=== PATIENT | female | born 1975 | race Caucasian/White ===

== ENCOUNTER 2019-12-26 11:23 | Outpatient (CLI) | payer OTHER, MEDICAID, SELFPAY ==
--- NOTE | 2019-12-29 12:02 | WPDHOLTEREM ---
Holter/Event Monitor Holter/Event Monitor Date of procedure: 12/26/19 Procedure Type: 48 hour holter monitr Indications: Paplitations Conclusion: 1. 48 hour holter monitor on 12/26/19. 2. Underlying rhythm is sinus rhythm. HR range 55-141 bpm; average HR 94 bpm. 3. There are 2 premature supraventricular complexes. No supraventricular tachycardia. 4. There are 3 premature ventricular complexes. No ventricular tachycardia. 5. No sinioatrial or atrioventricular blocks. No significant pauses greater than 2 seconds. 6. Patient reports symptoms of chest heaviness, tightness and hurting, shortness of breath which demonstrate sinus rhythm, HR range 106-126 bpm.
== END 2019-12-26 11:24 | disposition home or self-care (01) ==
PROVIDERS: PCP Emergency Medicine; Visit Provider Internal Medicine Cardiovascular Disease
DX: R00.2 Palpitations (principal)
CPT/HCPCS: 93225; 93226

== ENCOUNTER 2020-04-16 19:28 | Emergency (ER) | payer OTHER, MEDICAID, SELFPAY ==
--- NOTE | ~2020-04-16 | XR_ITS ---
XR chest 2V DATE: 04/16/2020 20:30 INDICATION: Upper chest tightness TECHNIQUE: PA and lateral views COMPARISON: 11/22/2015 2 view chest FINDINGS: Normal heart size. No hilar or mediastinal enlargement. No pulmonary infiltrate or consolid ation, pleural effusion or pulmonary vascular congestion or pneumothorax. No hilar or mediastinal enl argement. IMPRESSION: No active cardiopulmonary disease Reviewed, dictated and finalized at location A. ATRIC PHYSICAL THERAPIST
[2020-04-16 19:35] VITALS: BP 151/88; PULSE 100; RESP 16; TEMP 37.1; O2SAT 99
--- NOTE | 2020-04-16 19:48 | ED.CHESTPAIN ---
HPI - Chest Pain General Chief Complaint: Chest Pain Stated Complaint: chest pain,pain under collarbone Time Seen by Provider: 04/16/20 19:49 Source: patient and RN notes reviewed Mode of arrival: ambulatory Limitations: no limitations History of Present Illness HPI narrative: patient states that she woke up with her left arm swollen and painful 4 days ago. She did not come in because she had company in town. She has a long history of autoimmune disease, DVT previously. She had COVID 5-6 weeks ago. She is now having some chest pain / soreness on her left chest. It does not radiate to her left arm but the swelling in her left arm started 1st. She said the swelling went down and approximately 24 hours but still feels sore. She called her doctor last week and was authorized to get a ultrasound of her left upper extremity but did not get it scheduled and did not get that done today. She was advised to come to the emergency room has a for chest pain. Her initial complaint of the swelling in her arm has resolved. She is concerned about a DVT in her arm. She continues on Xarelto 20 mg daily. I explained that I will not be able to do an ultrasound at this time due to there is not a tech available. complaint: chest pain Onset (ago): day(s) (4) Timing of current episode: episodic and now resolved Prior episodes: No Onset: awoke with symptoms Pain location: left chest Pain radiation: none Severity: moderate Quality: tightness Relieving factors: rest Exacerbating factors: nothing Treatment prior to arrival: none Related Data Home Medications Medication Instructions Recorded Confirmed alprazolam 0.5 mg tablet 0.5 mg PO TID PRN 05/24/19 04/16/20 cyclobenzaprine 10 mg tablet 10 mg PO BID tablet 05/24/19 04/16/20 pantoprazole 40 mg tablet,delayed 40 mg PO QAM 05/24/19 04/16/20 release rivaroxaban 20 mg tablet 20 mg PO DAILY 05/24/19 04/16/20 acyclovir 5 %-hydrocortisone 1 % 1 applic TOPICAL ONCE 05/31/19 04/16/20 topical cream docusate calcium 240 mg capsule 240 mg PO DAILY 05/31/19 04/16/20 lidocaine 3 % topical cream 1 applic TOPICAL BID PRN 05/31/19 04/16/20 menthol 0.44 %-zinc oxide 20.6 % 1 applic TOPICAL QID PRN 05/31/19 04/16/20 topical ointment ondansetron HCl 4 mg tablet 4 mg PO Q8H 05/31/19 04/16/20 psyllium seed (sugar) oral powder 1 tbsp PO DAILY 05/31/19 04/16/20 valacyclovir 1 gram tablet 1,000 mg PO DAILY 05/31/19 04/16/20 gabapentin 300 mg capsule 600 mg PO TID cap 09/20/19 04/16/20 multivitamin 1 tablet PO DAILY 09/20/19 04/16/20 oxycodone-acetaminophen 10 mg-325 0.5 tablet PO Q4H PRN tablet 09/20/19 04/16/20 mg tablet duloxetine 60 mg capsule,delayed 60 mg PO DAILY 12/20/19 04/16/20 release sprinkle Allergies Allergy/AdvReac Type Severity Reaction Status Date / Time Iodinated Contrast Media Allergy Mild Unknown Verified 03/21/20 09:41 amoxicillin Allergy Unknown Unknown Verified 03/21/20 09:41 clavulanic acid Allergy Unknown Unknown Unverified 03/21/20 09:41 hydrocodone Allergy Unknown Unknown Verified 03/21/20 09:41 hydromorphone Allergy Unknown Unknown Verified 03/21/20 09:41 morphine Allergy Unknown Unknown Verified 03/21/20 09:41 tramadol Allergy Unknown Unknown Verified 03/21/20 09:41 HYDROCODONE BIT Allergy Mild Unknown Uncoded 03/21/20 09:41 PMFSH Past Medical History Medical History Anxiety Disease of colon genetic GERD (gastroesophageal reflux disease) History of DVT (deep vein thrombosis) History of pulmonary embolism Muscle weakness Neuropathy small fiber cell Tremor Surgical History Surgical History (Updated 05/31/19 @ 11:18 by Kelly Santoyo RN) History of bowel diversion surgery Jun 07, 2014 Family History Family History Mother Patient's mother is in good health Family history of heart disease in male family member before age 55 Father Family history of m
--- NOTE | 2020-04-16 20:09 | ECG_ITS ---
Measurements Intervals [place] Rate: 86 P: 52 DE: 154 QRS: 71 QRSD: 106 T: 11 QT: 374 QTc: 450 Interpretive Statements SINUS RHYTHM INCOMPLETE RIGHT BUNDLE BRANCH BLOCK NONSPECIFIC T-WAVE ABNORMALITY- ANTERIOR LEADS BORDERLINE ECG Electronically Signed On 04-16-2020 20:20:28 SENIOR ANALYST PROGRAMMER by Jeremy Ellis D.O.
[2020-04-16 20:26] LABS: Basophils Absolute Auto 0.04 K/mm3 (0.00-0.10); Basophils Percent Auto 0.3 % (0.0-1.0); Eosinophils Percent Auto 0.7 % (1.0-6.0); Hematocrit 35.8 % (35.0-49.0); Hemoglobin 10.7 g/dL (12.0-15.0); Immature Granulocyte Absolute 0.09 K/mm3 (0.00-0.00); Immature Granulocyte Percent A 0.6 % (0.0-0.0); Lymphocytes Absolute Auto 4.52 K/mm3 (1.10-4.50); Lymphocytes Percent Auto 31.2 % (18.0-42.0); Mean Corpuscular HGB Conc 29.9 g/dL (32.0-36.0); Mean Corpuscular Hemoglobin 23.3 pg (27.0-31.0); Mean Corpuscular Volume 77.8 fL (78.0-102.0); Mean Platelet Volume 9.7 fl (9.2-11.8); Monocytes Absolute Auto 0.91 K/mm3 (0.10-0.90); Monocytes Percent Auto 6.3 % (2.0-11.0); Neutrophils Absolute Auto 8.8 K/mm3 (1.7-7.2); Neutrophils Percent Auto 60.9 % (50.0-70.0); Platelet Count Result 342 K/mm3 (150-420); White Blood Count 14.5 K/mm3 (4.8-10.8)
[2020-04-16 20:38] LABS: INR 1.2; Prothrombin Time 12.2 Seconds (9.64-11.0)
[2020-04-16 20:47] LABS: Alanine Aminotransferase 24 U/L (14-59); Alkaline Phosphatase 120 U/L (46-116); Anion Gap 11 mmol/L (8-16); Aspartate Amino Transferase 10 U/L (15-37); Bilirubin,Total 0.2 mg/dL (0.00-1.00); Blood Urea Nitrogen 6 mg/dL (7-18); Calcium 8.9 mg/dL (8.5-10.1); Carbon Dioxide 27 mmol/L (21-32); Chloride 100 mmol/L (98-108); Estimated Glomerular Filt Rate > 60; Glucose 126 mg/dL (70-99); Magnesium 1.8 mg/dL (1.8-2.4); Osmolality Calculated 285 mOsm/kg (285-295); Potassium 3.5 mmol/L (3.5-5.1); Sodium 138 mmol/L (136-145); Total Protein 7.5 g/dL (6.4-8.2)
[2020-04-16 20:49] LABS: CRP 0.9 mg/dL (0.0-0.9); Troponin I < 0.02 ng/mL (0.00-0.056)
[2020-04-16 21:52] VITALS: RESP 15
== END 2020-04-16 21:53 | disposition home or self-care (01) ==
PROVIDERS: Emergency Provider Emergency Medicine; PCP Emergency Medicine
DX: R07.89 Other chest pain (principal); Z86.718 Personal history of other venous thrombosis and embolism; M79.622 Pain in left upper arm
CPT/HCPCS: 36415; 71046; 80053; 83735; 84484; 85025; 85610; 86140; 93005; 99283; 99284

== ENCOUNTER 2020-04-17 15:13 | Outpatient (CLI) | payer OTHER, MEDICAID, SELFPAY ==
--- NOTE | ~2020-04-17 | US_ITS ---
EXAMINATION: US venous doppler UE LT DATE: 04/17/2020 15:54 INDICATION: Left upper limb pain and swelling. TECHNIQUE: Grayscale ultrasound images without and with compression and Doppler ultrasound images of the left upper extremity veins were obtained. COMPARISON: None. FINDINGS: The visualized portions of the left internal jugular vein, subclavian vein, axillary vein, brachial v eins, basilic vein, cephalic vein, radial vein, and ulnar vein are patent. IMPRESSION: 1. No deep venous thrombosis. Reviewed, dictated and finalized at location B. L STITCHER
== END 2020-04-17 15:14 | disposition home or self-care (01) ==
LOC: CHSIMG 15:16
PROVIDERS: PCP Emergency Medicine; Visit Provider Emergency Medicine
DX: M79.89 Other specified soft tissue disorders (principal); M79.602 Pain in left arm
CPT/HCPCS: 93971

== ENCOUNTER 2022-01-19 11:21 | Outpatient (CLI) | payer OTHER, BC, SELFPAY ==
--- NOTE | ~2022-01-19 | MR_ITS ---
EXAMINATION: MR brain/brain stem wo/w con DATE: 01/19/2022 20:20 CDT INDICATION: Memory loss TECHNIQUE: Magnetic resonance imaging (MRI) of the brain and brainstem was performed without and with 16 cc MultiHance intravenous contrast. Sequences included sagittal and axial T1-weighted SE, axial d iffusion-weighted FS SE, axial T2*-weighted GRE, axial T2-weighted FLAIR Propeller, and axial T2-weig hted Propeller. Apparent diffusion coefficient (ADC) maps were created. COMPARISON: No prior studies for comparison. FINDINGS: The brain volume and ventricular system are within normal limits. The brain parenchymal si gnal intensity pattern and schwarz/white matter is normal and there is no evidence of hemorrhage, space occupying masses or infarctions. The flow signal voids of the major arterial structures about the washoe of [place] and within the tori r dural venous sinuses appear grossly unremarkable and patent. The seventh and eighth cranial nerve complexes are normal. The mid sagittal image demonstrates a normal craniovertebral junction and cristina us callosum. The paranasal sinuses are grossly unremarkable. No abnormal contrast enhancement was appreciated. IMPRESSION: 1: NORMAL MRI OF THE BRAIN. Reviewed, dictated and finalized at location A. IMPRESSION: 1: NORMAL MRI OF THE BRAIN.
== END 2022-01-19 11:22 | disposition home or self-care (01) ==
PROVIDERS: PCP Emergency Medicine; Visit Provider Emergency Medicine
DX: G62.9 Polyneuropathy, unspecified (principal)
CPT/HCPCS: 70553; A9577

== ENCOUNTER 2022-03-27 14:16 | Outpatient (CLI) | payer OTHER, MEDICAID, SELFPAY ==
--- NOTE | 2022-03-27 14:20 | ECG_ITS ---
Measurements Intervals [place] Rate: 86 P: 64 DC: 151 QRS: 73 QRSD: 94 T: 50 QT: 367 QTc: 441 Interpretive Statements SINUS RHYTHM NONSPECIFIC T-WAVE ABNORMALITY ABNORMAL ECG COMPARED TO ECG 04/16/2020 20:19:31 T-WAVE ABNORMALITY NOW PRESENT Electronically Signed On 03-27-2022 14:53:11 CDT by Yogi Sam M.D.
--- NOTE | 2022-04-29 15:09 | WPDHOLTEREM ---
Holter/Event Monitor Holter/Event Monitor Date of procedure: 03/27/22 Holter/Event Procedure: Event Monitor Indications: Palpitations Conclusion: 1. 25 days event monitor between 03/27/22-04/25/22. There are 39 available transmissions for analysis. 2. Predominant rhythm is sinus rhythm. HR range 50-220 bpm; average HR 84 bpm. 3. There are occasional premature supraventricular complexes with total burden of <1%. No supraventricular tachycardia. 4. There are occasional premature ventricular complexes with total burden of <1%. There is 1 episode of ventricular tachycardia at 220 bpm lasting 38 beats on 04/18/22 at 15:56. 5. There is 1 episode of second degree AV block, type I at 68 bpm on 03/28/22 at 06:20. There is 1 pause greater than 2 seconds at 2.3 seconds on 04/13/22 at 05:17. 6. Patient reports 6 episodes of symptoms of chest pain, skipped beats, lightheadedness/shortness of breath/heart racing, and symptom other than listed which demonstrate sinus rhythm, HR range 91-110 bpm.
== END 2022-03-27 14:17 | disposition home or self-care (01) ==
LOC: CHSTREATRM 14:20 → CHSCARD 14:24
PROVIDERS: PCP Emergency Medicine; Visit Provider Internal Medicine Cardiovascular Disease
DX: R07.9 Chest pain, unspecified (principal)
CPT/HCPCS: 93005

== ENCOUNTER 2022-04-11 12:30 | Outpatient (CLI) | payer OTHER, BC, SELFPAY ==
--- NOTE | ~2022-04-11 | DEXA_ITS ---
Bone Density Report Name: TARIK RAYGOZA Age: 46 Sex: Female Ethnicity: White Date of : 1975 Indication: postmenopausal; inflammatory bowel disease; hysterectomy; rheumatoid arthritis; Referring Provider: ADEEL PENG Study: Bone densitometry was performed. Exam Date: April 11, 2022 Accession number: [id number] Bone Density: Region BMD T-score Z-score Classification AP Spine(L1-L4) 0.836 -1.9 -1.3 Osteopenia Femoral Neck (Left) 0.568 -2.5 -1.9 Osteoporosis Total Hip (Left) 0.738 -1.7 -1.3 Osteopenia Femoral Neck (Right) 0.628 -2.0 -1.4 Osteopenia Total Hip (Right) 0.725 -1.8 -1.4 Osteopenia Total Hip Mean 0.732 -1.8 -1.4 Osteopenia World Health Organization criteria for BMD impression classify patients as: Normal (T-score at or above -1.0), Osteopenia (T-score between -1.0 and -2.5), or Osteoporosis (T-score at or below -2.5). 10-year Fracture Risk: FRAX not reported because: Some T-score for Spine Total or Hip Total or Femoral Neck at or below -2.5 Treated for osteoporosis Clinical Information Provided by Patient: Smokes Has rheumatoid arthritis Is being treated for osteoporosis Has used the following medications: Vitamin D, Calcium Has the following medical conditions: Inflammatory bowel diseases, Hysterectomy Patient maximum height was 62 Menopause Age: 29 Drinks caffeinated beverages Onset of menses at age 11 Number of children 2 Impression: The patient has osteoporosis, based on the Left Femoral Neck T-score. The patient has risk factors, including: smoking. Discussion: It is important to ask patients whether they are taking their medications and to encourage continued and appropriate compliance with their osteoporosis therapies to reduce fracture risk. It is also important to review their risk factors and encourage appropriate calcium and vitamin D intakes, exercise, fall prevention and other lifestyle measures. Follow-Up: Consider a repeat BMD and Vertebral Fracture Assessment (VFA) exam in 2 years or sooner if medically necessary, to reassess this patient's status. Reported by: RICKI on 04/11/2022 12:55:00 PM. Reviewed, dictated and finalized at location AOmar LOREDO
== END 2022-04-11 12:31 | disposition home or self-care (01) ==
PROVIDERS: PCP Emergency Medicine; Visit Provider Emergency Medicine
DX: Z78.0 Asymptomatic menopausal state (principal); M85.88 Other specified disorders of bone density and structure, other site; M81.0 Age-related osteoporosis without current pathological fracture; M85.852 Other specified disorders of bone density and structure, left thigh; M85.851 Other specified disorders of bone density and structure, right thigh
CPT/HCPCS: 77080

== ENCOUNTER 2022-04-18 19:56 | Emergency (ER) | payer OTHER, MEDICAID, SELFPAY ==
[2022-04-18] VITALS (33 sets, daily range): BP systolic 118–146; BP diastolic 85–111; PULSE 74–103; RESP 12–27; TEMP 36.7; O2SAT 97–100
--- NOTE | ~2022-04-18 | CT_ITS ---
EXAMINATION: CT abdomen pelvis wo con DATE: 04/18/2022 21:13 INDICATION: Epigastric abdominal pain. TECHNIQUE: Computed tomography (CT) of the abdomen and pelvis was performed without intravenous contr ast. Automated exposure control and iterative reconstruction technique were employed. The dose-length product was 998.65 mGy-cm. COMPARISON: CT abdomen and pelvis 10/17/2017 FINDINGS: The visualized portions of the lung bases are clear demonstrate minimal atelectasis. No ple ural effusion. The heart size is normal. No pericardial effusion. There is diffuse hepatic steatosis. The gallbladder, spleen, pancreas, adrenal glands, and kidneys are normal. There is no urolithiasis. There are changes of partial colectomy. There are no dilated loops of bowel. There are no pathologic ally enlarged lymph nodes. There is no free intraperitoneal fluid. There is mild thoracolumbar spondy losis. IMPRESSION: 1. Diffuse hepatic steatosis. Reviewed, dictated and finalized at location A. CONSULTANT
--- NOTE | ~2022-04-18 | XR_ITS ---
EXAMINATION: XR chest 1V portable DATE: 04/18/2022 20:39 INDICATION: Atrial fibrillation. TECHNIQUE: A single frontal view of the chest was obtained. COMPARISON: Chest 2 views 04/16/2020 FINDINGS: The chest demonstrates clear lungs without pneumonia, pleural effusion, or pneumothorax. Th e heart size is normal. IMPRESSION: 1. No acute cardiopulmonary disease. Reviewed, dictated and finalized at location A. MATION DEVELOPER
--- NOTE | 2022-04-18 20:28 | ECG_ITS ---
Measurements Intervals [place] Rate: 86 P: 48 [place]: 166 QRS: 56 QRSD: 91 T: 29 QT: 371 QTc: 445 Interpretive Statements SINUS RHYTHM WITH SINUS ARRHYTHMIA BASELINE ARTIFACT- I, II, AVR, V1 BORDERLINE T WAVE ABNORMALITY- ANTERIOR LEADS BORDERLINE ECG COMPARED TO ECG 03/27/2022 14:38:21 SINUS ARRHYTHMIA NOW PRESENT Electronically Signed On 04-19-2022 7:06:56 MEDICAL PARASITOLOGIST by Jeremy Ellis D.O.
[2022-04-18 20:41] LABS: Basophils Absolute Auto 0.03 K/mm3 (0.00-0.10); Basophils Percent Auto 0.2 % (0.0-1.0); Eosinophils Absolute Auto 0.18 K/mm3 (0.02-0.50); Eosinophils Percent Auto 1.2 % (1.0-6.0); Hematocrit 40.6 % (35.0-49.0); Hemoglobin 13.7 g/dL (12.0-15.0); Immature Granulocyte Absolute 0.07 K/mm3 (0.00-0.00); Immature Granulocyte Percent A 0.5 % (0.0-0.0); Lymphocytes Absolute Auto 4.47 K/mm3 (1.10-4.50); Lymphocytes Percent Auto 29.1 % (18.0-42.0); Mean Corpuscular HGB Conc 33.7 g/dL (32.0-36.0); Mean Corpuscular Hemoglobin 31.4 pg (27.0-31.0); Mean Corpuscular Volume 92.9 fL (78.0-102.0); Monocytes Absolute Auto 0.97 K/mm3 (0.10-0.90); Monocytes Percent Auto 6.3 % (2.0-11.0); Neutrophils Absolute Auto 9.6 K/mm3 (1.7-7.2); Neutrophils Percent Auto 62.7 % (50.0-70.0); Platelet Count Result 259 K/mm3 (150-420); Red Blood Count 4.37 M/mm3 (4.20-5.40); Red Cell Distribution Width 12.9 % (11.6-14.4); White Blood Count 15.4 K/mm3 (4.8-10.8)
[2022-04-18 20:59] LABS: Alanine Aminotransferase 26 U/L (14-59); Albumin Level 3.8 g/dL (3.4-5.0); Alkaline Phosphatase 94 U/L (46-116); Anion Gap 9 mmol/L (8-16); Aspartate Amino Transferase 11 U/L (15-37); Bilirubin,Total 0.2 mg/dL (0.00-1.00); Blood Urea Nitrogen 6 mg/dL (7-18); Calcium 9.1 mg/dL (8.5-10.1); Carbon Dioxide 27 mmol/L (21-32); Chloride 104 mmol/L (98-108); Estimated CRCL calculation 67 ml/min; Estimated Glomerular Filt Rate > 60; Glucose 206 mg/dL (70-99); Lactic Acid Reflex 1.5 mmol/L (0.4-2.0); Osmolality Calculated 293 mOsm/kg (285-295); Potassium 3.4 mmol/L (3.5-5.1); Sodium 140 mmol/L (136-145); Total Protein 7.1 g/dL (6.4-8.2); Troponin I 4.6 ng/L (0.00-60.4)
[2022-04-18 21:00] LABS: Ethanol < 3 mg/dL (0-6)
[2022-04-18] MEDS: SODIUM CHLORIDE 0.9% IV 1,000 ML 999 ML IV CONT (21:27)
[2022-04-18] MEDS: ASPIRIN 325 MG ENTERIC TABLET PO (21:27)
[2022-04-18 21:37] LABS: Appearance Urine Clear (Clear); Bilirubin Urine Negative (Negative); Blood Urine 2+ (Negative); Glucose Urine UA Negative (Negative); Ketones Urine Negative (Negative); Leukocyte Esterase Ur Negative (Negative); Nitrate Urine Negative (Negative); Protein Urine Negative (Negative); Urobilinogen Urine 0.2 mg/dL (0.2-1.0)
[2022-04-18 21:43] LABS: Add Urine Microscopic? YES; Amphetamine Screen Urine Negative (Negative); Barbiturate Screen Urine Negative (Negative); Benzodiazepines Screen Urine Positive (Negative); Cannabinoid Screen Urine Positive (Negative); Cocaine Screen Urine Negative (Negative); Color Urine Light Yellow (Yellow); Methadone Screen Urine Negative (Negative); Opiate Screen Urine Negative (Negative); Phencyclidine Screen Urine Negative (Negative)
[2022-04-18 21:44] LABS: Bacteria Urine Trace /hpf; Squamous Epithelial Cell Urine Few /hpf (Few); WBC Urine 0-3 /hpf (0-3)
--- NOTE | 2022-04-18 22:26 | PC.NURSE ---
PT REPORTS SHE WOULD LIKE TO ATTEMPT [facility] FOR TRANSFER. PT AND SISTER AWARE OF PLAN OF CARE. ETIENNE NO BEDS CODY- OSVALDO NO BEDS HS- NIK NO BEDS FELIX KUNZ NO BEDS, SPOKE WITH DR DEVINE -WILL ATTEMPT TO FIND BED
--- NOTE | 2022-04-18 23:07 | PC.NURSE ---
[facility] ASSEM[facility]ER GOLD FRAME DR SCHREIBER ACCEPTS PT, TO AWAIT RETURN CALL FROM HOSPITALIST AND ROOM ASSIGNMENT FROM [facility]. WILL CONTINUE TO MONITOR.
--- NOTE | 2022-04-18 23:12 | PC.NURSE ---
UPDATE* DR BROWN FROM [facility] RETURNS CALL AT THIS TIME. NO BEDS AT [facility].
--- NOTE | 2022-04-18 23:52 | ED.ARRPALP ---
HPI - Arrhythmia/Palpitations General Chief Complaint: Arrhythmia/Palpitations Stated Complaint: almost passed out, hot flashes Time Seen by Provider: 04/18/22 20:00 Source: patient and RN notes reviewed Mode of arrival: ambulatory Limitations: no limitations History of Present Illness complaint: heart racing Onset (ago): hour(s) (4) Time: 16:00 Duration: now resolved Severity: similar to previous episodes Context: occurred during exertion Arrhythmia history: other (ventricular tachycardia) Associated symptoms: chest pain and shortness of breath Related Data Home Medications Medication Instructions Recorded Confirmed alprazolam 0.5 mg tablet (Xanax) 0.5 mg PO TID PRN Anxiety 05/24/19 04/18/22 cyclobenzaprine 10 mg tablet 10 mg PO BID 05/24/19 04/18/22 pantoprazole 40 mg tablet,delayed 40 mg PO QAM 05/24/19 04/18/22 release (Protonix) rivaroxaban 20 mg tablet (Xarelto) 20 mg PO DAILY 05/24/19 04/18/22 acyclovir 5 %-hydrocortisone 1 % 1 applic topical ONCE 05/31/19 04/18/22 topical cream docusate calcium 240 mg capsule 240 mg PO DAILY 05/31/19 04/18/22 lidocaine 3 % topical cream 1 applic topical BID PRN Pain 05/31/19 04/18/22 menthol 0.44 %-zinc oxide 20.6 % 1 applic topical QID PRN Pain 05/31/19 04/18/22 topical ointment (Calmoseptine) ondansetron HCl 4 mg tablet 4 mg PO Q8H 05/31/19 04/18/22 psyllium seed (sugar) oral powder 1 tbsp PO DAILY 05/31/19 04/18/22 (Metamucil (sugar) oral powder) valacyclovir 1 gram tablet 1,000 mg PO DAILY 05/31/19 04/18/22 (Valtrex) gabapentin 300 mg capsule 600 mg PO TID 09/20/19 04/18/22 (Neurontin) multivitamin 1 tablet PO DAILY 09/20/19 04/18/22 oxycodone-acetaminophen 10 mg-325 0.5 tablet PO Q4H PRN Pain 09/20/19 04/18/22 mg tablet (Percocet) duloxetine 60 mg capsule,delayed 60 mg PO DAILY 12/20/19 04/18/22 release sprinkle ascorbic acid (vitamin C) 100 mg 100 mg PO DAILY 07/13/20 04/18/22 tablet chlorpheniramine 2 mg-DM 10 1 tablet PO Q4H PRN Cold Symptoms 07/13/20 04/18/22 mg-acetaminophen 325 mg tablet (Coricidin HBP Flu) fluticasone propionate 50 1 spray intranasal DAILY 07/13/20 04/18/22 mcg/actuation nasal spray,suspension (Allergy Relief (fluticasone)) ipratropium bromide 21 mcg (0.03 2 spray intranasal BID 07/13/20 04/18/22 %) nasal spray magnesium citrate (Citrate of 150 ml PO DAILY 07/13/20 04/18/22 Magnesia oral) losartan 25 mg tablet 25 mg PO DAILY 05/08/21 04/18/22 Allergies Allergy/AdvReac Type Severity Reaction Status Date / Time Iodinated Contrast Media Allergy Mild Unknown Verified 04/18/22 20:23 amoxicillin Allergy Unknown Unknown Verified 04/18/22 20:23 clavulanic acid Allergy Unknown Unknown Verified 04/18/22 20:23 hydrocodone Allergy Unknown Unknown Verified 04/18/22 20:23 hydromorphone Allergy Unknown Unknown Verified 04/18/22 20:23 morphine Allergy Unknown Unknown Verified 04/18/22 20:23 tramadol Allergy Unknown Unknown Verified 04/18/22 20:23 HYDROCODONE BIT Allergy Mild Unknown Uncoded 03/27/22 13:25 Review of Systems Review of Systems: All systems reviewed & are unremarkable except as noted in HPI and below Constitutional: Constitutional: Reports no additional constitutional complaints Eyes: Eyes: Reports no additional eye complaints ENT: Reports system reviewed and no additional complaints, except as documented Cardiovascular: Cardiovascular: Reports chest pain and Reports rapid heart rate Respiratory: Respiratory: Reports dyspnea Gastrointestinal: Gastrointestinal: Reports no additional gastrointestinal complaints Genitourinary: Genitourinary: Reports no additional female genitourinary complaints Musculoskeletal: Musculoskeletal: Reports no additional musculoskeletal complaints Integumentary/Breasts: Skin/Breast: Reports system reviewed and no additional complaints, except as docu Neurologic: Reports system reviewed and no additional complaints, except as documented Psychiatric: Psychiatric: R
[2022-04-19] VITALS (8 sets, daily range): BP systolic 124–153; BP diastolic 94–115; PULSE 74–94; RESP 15–23; O2SAT 98–100
== END 2022-04-19 01:05 | disposition short-term general hospital (02) ==
PROVIDERS: Emergency Provider Emergency Medicine; PCP Emergency Medicine
DX: R07.9 Chest pain, unspecified (principal); I47.20 Ventricular tachycardia, unspecified
CPT/HCPCS: 36415; 71045; 74176; 80053; 80307; 81001; 83605; 84484; 85025; 87040; 93005; 96361; 96365; 99285; A9270; J0696; J7030

== ENCOUNTER 2023-07-15 11:04 | Outpatient (CLI) | payer OTHER, SELFPAY | END 2023-07-15 11:05 | disposition home or self-care (01) | LOC: ANHBWCAUD 11:05 | PROVIDERS: PCP Emergency Medicine; Visit Provider Emergency Medicine | DX: H90.42 Sensorineural hearing loss, unilateral, left ear, with unrestricted hearing on the contralateral side (principal) | CPT/HCPCS: 92557; 92567 ==

== ENCOUNTER 2024-03-07 13:36 | Outpatient (CLI) | payer OTHER, MEDICAID, SELFPAY ==
--- NOTE | 2024-03-07 | ECHO_ITS ---
Patient Info Name: Bita Kraus Age: 48 years : 1975 Gender: Female Ht: 62 in Wt: 175 lbs BSA: 1.90 m2 HR: 81 bpm BP: 118 / 89 mmHg Heart Rhythm: Sinus Rhythm Technical Quality: Good Exam Date: 03/07/2024 2:03 PM Exam Location: Echo Lab Patient Status: Outpatient Admit Date: 03/07/2024 Staff Ordering Physician: TessyBhupendra MD Geomagnetician: Soila Downs RDCS Attending Provider: Tessy, Bhupendra Marquez MD Referring Physician: Tessy ISRAEL; Exam Type: CA echo doppler color flow Study Info Indications R00.0 - Tachycardia, unspecified - TANNER R07.9 - Chest pain, unspecified Complete two-dimensional, color flow and Doppler transthoracic echocardiogram is performed. Summary 1. The left ventricle is mildly dilated. The left ventricular systolic function is normal with LVEF estimated to be 60-65%. Left Ventricle The left ventricle is mildly dilated. The left ventricular systolic function is normal with LVEF estimated to be 60-65%. Right Ventricle The right ventricle size and systolic function is normal. Left Atria Left atrial chamber dimension is normal. Right Atria Right atrial chamber dimension is normal. Aortic Valve The aortic valve is trileaflet. There is no aortic stenosis or regurgitation. Pulmonic Valve The pulmonic valve is not well visualized. Mitral Valve The mitral valve is normal. There is trace mitral regurgitation. Tricuspid Valve The tricuspid valve is normal. There is trace tricuspid regurgitation. Pericardium/Pleural Pericardium is normal in appearance with no evidence for significant pericardial effusion. Inferior Vena Cava Inferior vena cava is not well visualized. Aorta The aortic root at the level of the sinus of Valsalva is normal in diameter measuring 2.6 cm. Left Ventricular Outflow Tract Name Value Normal LVOT 2D LVOT Diameter 2.0 cm LVOT Doppler LVOT Peak Gradient 2 mmHg LVOT Mean Gradient 1 mmHg LVOT VTI 12 cm LVOT VTI/AV VTI Ratio 0.6 LVOT Stroke Volume 38 ml LVOT CO 2.7 l/min LVOT CI 1.4 l/min/m2 Pulmonic Valve Name Value Normal RVOT Doppler RVOT Peak Gradient 1 mmHg PV Doppler PV Peak Gradient 2 mmHg Mitral Valve Name Value Normal MV Doppler MV Decel Fleming 258 cm/s2 MV PHT 62 ms MV Area (PHT) 3.5
== END 2024-03-07 13:37 | disposition home or self-care (01) ==
LOC: ANHCARD 13:42
PROVIDERS: PCP Emergency Medicine; Visit Provider Internal Medicine Cardiovascular Disease
DX: R00.0 Tachycardia, unspecified (principal); R07.9 Chest pain, unspecified; R06.09 Other forms of dyspnea; R55 Syncope and collapse
CPT/HCPCS: 93306

== ENCOUNTER 2024-04-28 10:11 | Outpatient (CLI) | payer OTHER, MEDICAID, SELFPAY ==
--- NOTE | ~2024-04-28 | CT_ITS ---
CT Scan of the Chest without Contrast: Clinical Indication: Chest pain Technique: Contiguous sections were acquired throughout the chest without intravenous contrast. Dose reduction technique was used on this scan by utilizing automated exposure control and iterative recon struction technique. The dose-length product (DLP) was 212.49 mGy-cm. Findings: There is no evidence of any significant mediastinal, hilar or axillary lymphadenopathy. The mediastin al soft tissues appear normal. There is no evidence of pleural or pericardial effusion. The lungs are clear. No pulmonary nodules or infiltrates are noted. Images through the upper abdomen reveal diffuse hepatic steatosis. Impression: Clear lungs. Diffuse hepatic steatosis. Reviewed, dictated and finalized at location . OR OUTSIDE SALES REPRESENTATIVE Impression: Clear lungs. Diffuse hepatic steatosis.
== END 2024-04-28 10:12 | disposition home or self-care (01) ==
PROVIDERS: PCP Emergency Medicine; Visit Provider Internal Medicine Cardiovascular Disease
DX: R07.9 Chest pain, unspecified (principal); K76.0 Fatty (change of) liver, not elsewhere classified
CPT/HCPCS: 71250

== ENCOUNTER 2024-09-09 15:47 | Outpatient (CLI) | payer OTHER, MEDICAID, SELFPAY ==
--- NOTE | ~2024-09-09 | US_ITS ---
EXAMINATION: US soft tissue groin LT DATE: 09/09/2024 16:26 INDICATION: Left groin pain post fall one week prior TECHNIQUE: Multiple grayscale and Doppler ultrasound images of the left inguinal region of concern we re obtained. COMPARISON: None FINDINGS: There are a few normal-sized left inguinal lymph nodes. The left common femoral artery and vein appea r normal. No abnormal masses, fluid collections or evident inguinal hernia at the region of concern. IMPRESSION: 1. Normal ultrasound of the left inguinal region. Reviewed, dictated and finalized at location A.
--- OUTSIDE RECORDS SUMMARY | 2024-09-09 15:51 | XMS_ITS | Clinical Summary ---
Author Organization [facility] Address [address] [place] [address] Care Team Providers Care Washcoat Wiper Name Role Phone Phil Glass MD Primary Care Provider [phone] Source Comments [facility],non-owned Affiliates and Associated Physician Practices is amultiple site organization consisting of ambulatory clinics and hospital sitesin [place], [place], [place] and [place]. This disclosure is being madepursuant to the Care Everywhere program and may not contain all information available regarding this patient. Last updated 18.[facility] Allergies Active Allergy Reactions Criticality Noted Date Comments Adhesive Sensitivity Other,Rash Medium 12/16/2018 Reaction: Other Amoxicillin-Pot Clavulanate Diarrhea Low 05/22/20 15 Amoxicillin-Pot Clavulanate Diarrhea Low 05/22/20 15 Contrast-Iodinated Agents For Ct/Other Unknown 09/30/2018 Hydrocodone Other Low 05/09/2014 Stopped breathing Iodine Rash Medium 10/08/2021 Potassium Rash Medium 07/03/2020 Reaction: Rash, Tramadol Other Low 05/09/2014 made me feel not okay Yellow Dye Rash Medium 05/09/2014 Medications * Be aware that medications may not be up to date on this document. Alwaysverify current medications with the patient. Medication Sig Dispensed Refills Start Date End Date Status Insulin Pen Needle (BD PEN NEEDLE KEVIN U/F) 32G X 4 MM MISC 09/08/2016 Active ONETOUCH DELICA LANCETS 33G MISC 02/27/2016 Active blood glucose (ONETOUCH VERIO) test strip 02/16/2016 Active Elastic Bandages & Supports (WRIST SPLINT) MISC Use 1 Units. 1 Units 0 09/01/2017 Active lidocaine (XYLOCAINE) 5 % ointment 07/28/2017 Active gabapentin (NEURONTIN) 300 MG capsule One capsule by mouth three times daily. 270 capsule 1 12/08/2017 Active ALPRAZolam (XANAX) 0.5 MG tablet Take by mouth 3 times daily as needed 03/04/2018 Active cyclobenzaprine (FLEXERIL) 10 MG tablet Take by mouth 2 times daily as needed 03/29/2018 Active pantoprazole EC (PROTONIX) 40 MG tablet Take by mouth once daily 02/02/2018 Active acyclovir (ZOVIRAX) 5 % cream Apply to affected area 5 times daily while awake Active menthol-zinc oxide (CALMOSEPTINE) 0.44-20.6 % ointment Apply to affected area as needed for Other Active ondansetron (ZOFRAN) 4 MG tablet Take 1 (one) tablet by mouth every 6 hours as needed for Nausea/Vomiting Active acyclovir (ZOVIRAX) 5 % ointment 0 08/02/2018 Active oxyCODONE-acetamino phen (PERCOCET) 10-325 MG tablet 0.5 (one-half) tablet every 4 hours as needed 0 09/29/2018 Active rivaroxaban (XARELTO) 20 MG tablet Take 1 (one) tablet by mouth once daily 05/25/2020 Active fluticasone propionate (FLONASE) 50 MCG/ACT nasal spray 04/13/2020 Activ e DULoxetine (CYMBALTA) 60 MG capsule 1 (one) capsule once daily 06/13/2020 Active amLODIPine (NORVASC) 5 MG tablet 1 (one) tablet once daily 06/13/2020 Active albuterol (PROVENTIL;VENTOLIN ) (2.5 MG/3ML) 0.083% nebulizer solution 03/07/2020 Active ipratropium (ATROVENT) 0.06 % nasal spray 05/16/2020 Active DULoxetine (CYMBALTA) 30 MG capsuleIndications: Neuropathy,Small fiber neuropathy Take 1 (one) capsule by mouth once daily 30 capsule 07/04/2020 Active LOSARTAN POTASSIUM PO Active Active Problems Problem Noted Date Diagnosed Date Closed dislocation of ankle 10/08/2021 Closed fracture of metatarsal bone 10/08/2021 Closed fracture of upper end of tibia 10/08/2021 Derangement of knee 10/08/2021 Fracture of lower leg 10/08/2021 Osteoarthrosis 10/08/2021 Nicotine dependence with current use 08/02/2021 Vitamin D deficiency 08/02/2021 Weakness 08/02/2021 Cellulitis of toe 05/29/2021 Gas pain 05/16/2021 Traumatic injury 05/13/2021 Family history of FAP (familial adenomatous poly posis) 05/09/2021 Overview (10/08/2021): Added automatically from request for surgery [id number] PE (pulmonary thromboembolism) 05/01/2021 Cigarette smoker 02/25/2021 Avulsion of toenail of left foot 02/22/2021 Onychomycosis of toenail 02/22/2021 Paronychia of toe of right foot 02/22/2021 Bloating 11/02/2020 Loose stools 11/02/2020 Iron deficiency anemia 09/05/2020 FAP (familial adenomatous polyposis) 11/30/2018 Overview (10/08/2021): Added automatically from request for surgery [id number] Diplopia 07/05/2015 Other localized visual field defect, bilateral 0 07/05/2015 Peripheral visual field defect, bilateral 2015 Anxiety 02/07/2015 Overview (10/08/2021): Anxiety Family history of coronary artery disease 2014 Overview (10/08/2021): Family history of coronary artery disease occurring prior to 55 years of age History of deep venous thrombosis 02/07/2015 Overview (10/08/2021): H/O deep venous thrombosis History of pulmonary embolism 02/07/2015 Overview (10/08/2021): 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 Tobacco use 02/07/2015 Overview (10/08/2021): Tobacco use Polyneuropathy 05/09/2014 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 Abnormal gait 01/02/2014 Anorectal polyp 01/02/2014 Atypical facial pain 01/02/2014 Generalized anxiety disorder 10/19/2013 Lymphadenopathy 10/19/2013 Gastroesophageal reflux disease 10/03/2013 Muscle weakness 10/03/2013 Tremor 10/03/2013 Encounters Date Type Department Care Team Description 06/28/2024 1:00 PM BANDER AND CELLOPHANER HELPER MACHINE Office Visit [facility] - Neurology [address] [place] [phone] Yolande Coley MD Idiopathic peripheral neuropathy (Primary Dx); Small fiber neuropathy from Last 3 Months Immunizations Name Administration Dates Next Due INFLUENZA VACCINE, CELL CULT URE, QUADR. (FLUCELVAX QUADRIVALENT; 6MO+), 0.5 ML (CCIIV4) 05/07/2019 INFLUENZA VACCINE, QUADR. (F LUZONE; FLULAVAL; FLUARIX; AFLURIA QUADRIVALENT; 6MO+), 0.5 ML (IIV4) 05/16/2020 Family History Medical History Relation Name Comments Glaucoma Father Heart Disease Father Macular Degeneration Father Status: Cancer Maternal Aunt leukemia; Stat us: Cancer Maternal Grandfather Status: Cancer Maternal Grandmother Status: Dementia Mother Glaucoma Mother Status: Alive Heart Disease Mother Parkinson's Disease Mother Cancer Sister uterine and ai kemia; Status: Alive Brain Tumor Neg Hx Relation Name Status Comments Father Maternal Aunt Maternal Grandfather Maternal Grandmother Mother Sister Social History Tobacco Use Types Packs/Day Years Used Date Smoking Tobacco: Some Days Smokeless Tobacco: Never Alcohol Use Standard Drinks/Week Comments No 0 (1 standard drink = 0.6 oz pur e alcohol) PHQ-2 Answer Date Recorded PHQ2 TOTAL SCORE 0 01/27/2022 Sex and Gender Information Value Date Recorded Sex Assigned at Female 12/19/2021 3:52 PM CDT Gender Identity Female 12/19/2021 3:52 PM CDT Sexual Orientation Straight 12/19/2021 3: 52 PM CDT Last Filed Vital Signs Vital Sign Reading Time Taken Comments Blood Pressure 100/70 06/28/2024 12:55 PM BANDER AND CELLOPHANER HELPER MACHINE Pulse 71 06/28/2024 12:55 PM BANDER AND CELLOPHANER HELPER MACHINE Temperature 36.8 C (98.2 F) 10/08/2021 11:43 AM CDT Respiratory Rate 18 05/22/2015 11:21 AM BANDER AND CELLOPHANER HELPER MACHINE Oxygen Saturation 98% 10/08/2021 11:43 AM CDT Inhaled Oxygen Concentration - - Weight 86.2 kg (190 lb) 06/28/2024 12:55 PM BANDER AND CELLOPHANER HELPER MACHINE Height 157.5 cm (5' 2 ) 07/03/2020 11:26 AM BANDER AND CELLOPHANER HELPER MACHINE Body Mass Index 34.75 07/03/2020 11:26 AM BANDER AND CELLOPHANER HELPER MACHINE Plan of Treatment Upcoming Encounters Date Type Department Care Team (Late st Contact Info) Description 06/27/2025 1:00 PM BANDER AND CELLOPHANER HELPER MACHINE Office Visit [facility] - Neurology [address] [place] [address], [place] [phone] Yolande Coley MD [address] [place] [phone] Health Maintenance Due Date Last Done Comments COLOGUARD (AGES 45-75) - COLON CA SCREENING 1974 COLON MONITORING 1974 COLONOSCOPY - COLON CA SCREENING 1974 CT COLONOGRAPHY - COLON CA SCREENING 1974 Colorectal Cancer Screening 1974 FIT - COLON CA SCREENING 1974 FLEX SIG - COLON CA SCREENING 1974 PAP SMEAR 1974 HEPATITIS C SCREENING 05/14/1992 DTAP/TDAP/TD VACCINES (1 - Tdap) 1993 HEPATITIS B VACCINE (1 of 3 - 19+ 3-dose series) 1993 PNEUMOCOCCAL VACCINE 50+ (1 of 2 - PCV) 1993 LIPID TESTING 10/06/2023 10/05/2018 COVID-19 VACCINE (1 - season) 2024 INFLUENZA VACCINE (#1) 2024 , 05/07/2019, 07/03/2017, Additional history exists ZOSTER VACCINE (1 of 2) 2024 DEPRESSION SCREENING 06/08/2024 01/06/2022 MAMMOGRAM 10/07/2025 10/08/2023, 03/0 08/2022, 04/25/2021, Additional history exists HIV SCREENING Completed 05/09/2014 HIB VACCINE Aged Out No longer eligi ble based on patient's age to complete this topic HPV VACCINE Aged Out No longer eligi ble based on patient's age to complete this topic MENINGOCOCCAL (Group B) VACCINE SHARED DECISION-MAKING Aged Out No longer eligible based on patient's age to complete this topic MENINGOCOCCAL GROUPS A/C/Y/W VACCINE Aged Out No longer eligible based on patient's age to complete this topic Procedures Procedure Name Priority Date/Time Associated Diagnosis Comments LIPID PROFILE Routine 10/05/2018 2:21 PM CDT Neck pain Chronic low back pain with sciatica, sciatica laterality unspecified, unspecified back pain laterality Imbalance Neuropathy HIV-1 HIV-2 ANTIGEN/ANTIBODY Routine 05/09/2014 12:58 PM BANDER AND CELLOPHANER HELPER MACHINE from Last 3 Months or Most Recently Relevant to Health Maintenance Results * (ABNORMAL) LIPID PROFILE (10/05/2018 2:21 PM CDT) Cholesterol Total 292(H) <200 mg/dL 10/05/2018 3:18 PM [facility] HDL 57 >40 mg/dL 10/05/2018 3:18 PM [facility] Comment: ATP III Classification of HDL Cholesterol: <40 mg/dL: Considered a major risk factor. >60 mg/dL: Considered a negative risk factor. LDL Calculated 214(H) <100 mg/dL 10/05/2018 3:18 PM [facility] Comment: ATP III Classification of LDL Cholesterol: <100 mg/dL: Optimal 100 - 129 mg/dL: Near Optimal/Above Optimal 130 - 159 mg/dL: Borderline High 160 - 189 mg/dL: High >190 mg/dL: Very High Triglycerides 105 <150 mg/dL 10/05/2018 3:18 PM [facility] Comment: ATP III Classification of Triglycerides: <150 mg/dL: Normal 150 - 199 mg/dL: Borderline High 200 - 400 mg/dL: High >500 mg/dL: Very High Blood BLOOD SPECIMEN / Unknown Lab Venipuncture / Unknown 10/05/2018 2:21 PM CDT 10/05/2018 2:50 PM CDT Yolande Coley MD LAB - CHEMISTRY KEYANNA CHEN [address] [phone] * HIV-1 HIV-2 ANTIGEN/ANTIBODY (05/09/2014 12:58 PM BANDER AND CELLOPHANER HELPER MACHINE) HIV Antigen/Antibod y 1 & 2 Non-reacti ve Non-react anu [facility] Comment: Neither HIV-1 p24 Antigen nor HIV-1/HIV-2 Antibodies are detected. Blood specimen (specimen) BLOOD SPECIMEN / Unknown 05/09/2014 12:58 PM BANDER AND CELLOPHANER HELPER MACHINE 05/09/2014 1:37 PM BANDER AND CELLOPHANER HELPER MACHINE Yolande Coley MD LAB - HEMATOLOGY MANJU HAGEN [address] [phone] from Last 3 Months or Most Recently Relevant to Health Maintenance Care Teams Washcoat Wiper Relationship Specialty Start Date End Date Phil Glass MD [facility] - General 10/05/18
--- OUTSIDE RECORDS SUMMARY | 2024-09-09 15:51 | XMS_ITS | Encounter Summary ---
Author Organization [facility] Address [address] [place] [address] Phone Care Team Providers Care Fence Laborer Name Role Phone Blaze Haley MD Primary Care Provider [phone] Reason for Visit * Reason Comments Medication Refill Encounter Details Date Type Department Care Team (Late st Contact Info) Description 11/12/2022 Refill [facility] [address] [phone] Phyllis Martin, [place] Medication Refill Social History Tobacco Use Types Packs/Day Years Used Date Smoking Tobacco: Some Days Smokeless Tobacco: Current Alcohol Use Standard Drinks/Week Comments Yes 0 (1 standard drink = 0.6 oz pur e alcohol) PHQ-2 Answer Date Recorded Total Score - Questions 1-9 0 01/07 Comments No Sex and Gender Information Value Date Recorded Sex Assigned at Female 08/30/2023 9:10 PM CDT Legal Sex Female 11:45 PM CDT Gender Identity Female 08/30/2023 9:10 PM CDT Sexual Orientation Straight 08/30/2023 9: 10 PM CDT documented as of this encounter Miscellaneous Notes * Telephone Encounter - Renee Martin RN - 11/12/2022 12:57 PM CDT Refill request from pharmacy. Please fill if appropriate. documented in this encounter Plan of Treatment Upcoming Encounters Date Type Department Care Team (Late st Contact Info) Description 12/19/2024 10:30 AM CDT Lab [facility] [address] [phone] Blaze Haley MD [address] [place] [phone] Lab, [facility] 12/19/2024 10:45 AM CDT Office Visit [facility] [address] [phone] Blaze Haley MD [address] [place] [phone] documented as of this encounter Visit Diagnoses Diagnosis PE (pulmonary thromboembolism) (HCC) Chronic pulmonary embolism documented in this encounter Additional Health Concerns Assessment Noted Time PHQ-9 Depression Total Score: 1 02/21/20 21 2:07 PM CDT documented as of this encounter Care Teams Fence Laborer Relationship Specialty Start Date End Date Blaze Haley MD [address] [place] [phone] PCP - General Oncology 11/14/20 documented as of this encounter
--- OUTSIDE RECORDS SUMMARY | 2024-09-09 15:51 | XMS_ITS | Encounter Summary ---
Author Organization [facility] Address [address] [place] [address] Care Team Providers Care Club Room Attendant Name Role Phone None, Provider Primary Care Provider UnavailPhil Lyles MD Primary Care Provider [phone] Sammy Sierra MD Unavailable [phone] Encounter Details Date Type Department Care Team (Late st Contact Info) Description 11/13/2018 Abstract [facility] [address] [place] [address] , Generic Conversion, Social History Tobacco Use Types Packs/Day Years Used Date Smoking Tobacco: Never Assessed Comments Unknown Sex and Gender Information Value Date Recorded Sex Assigned at Female 06/24/2024 8:03 AM YARN WEIGHT AND STRENGTH TESTER Legal Sex Female 5:57 PM YARN WEIGHT AND STRENGTH TESTER Gender Identity Not on file Sexual Orientation Not on file documented as of this encounter Plan of Treatment Upcoming Encounters Date Type Department Care Team (Late st Contact Info) Description 10/03/2024 10:55 AM CDT Allied Health/Nurse Visit [facility], [facility] [address] [place], [place] [phone] Sammy Sierra MD [facility]. [address] [place], [place] [phone] 03/01/2025 12:00 PM CDT Office Visit [facility], [place] [address] [place], [place] [phone] Bhupendra Johnson MD [facility], [address] [place] [address] documented as of this encounter Visit Diagnoses Not on filedocumented in this encounter Care Teams Club Room Attendant Relationship Specialty Start Date End Date None, Provider, PCP - General UNKNOWN PHYSICIAN SPECIALTY 04/18/22 04/18/22 Phil Glass MD [address] [phone] PCP - General FAMILY PRACTICE 04/19/22 Sammy Sierra MD [address] [address] Consulting Physician CLINICAL CARDIAC ELECTROPHYSIOLOGY 05/16/24 documented as of this encounter
--- OUTSIDE RECORDS SUMMARY | 2024-09-09 15:51 | XMS_ITS | Encounter Summary ---
Author Organization [facility] Address [address] [place] [address] Phone Care Team Providers Care Canine Enforcement Officer Name Role Phone Glass Phil Primary Care Provider [phone] Blaze Haley MD Primary Care Provider [phone] Encounter Details Date Type Department Care Team (Late st Contact Info) Description 02/24/2020 Telephone [facility] [address] [place] [address] Blaze Haley MD [address] [place] [phone] Social History Tobacco Use Types Packs/Day Years Used Date Smoking Tobacco: Some Days Smokeless Tobacco: Current Alcohol Use Standard Drinks/Week Comments Yes 0 (1 standard drink = 0.6 oz pur e alcohol) PHQ-2 Answer Date Recorded PHQ-2 Score 0 02/04/2019 Comments Unknown Sex and Gender Information Value Date Recorded Sex Assigned at Female 08/30/2023 9:10 PM CDT Legal Sex Female 11:45 PM CDT Gender Identity Female 08/30/2023 9:10 PM CDT Sexual Orientation Straight 08/30/2023 9: 10 PM CDT COVID-19 Exposure Response Date Recorded In the last month, have you been in contact with someone who was confirmed or suspected to have Coronavirus / COVID-19? Unable to assess 02/24/2020 3:06 PM CDT documented as of this encounter Miscellaneous Notes * Telephone Encounter - Mcclain Mayelin Humberto - 02/24/2020 8:15 AM CDT PATIENT CALLED IN THIS MORNING HER SON GIRLFRIEND THAT LIVES IN THE HOME WITH PATIENT HAD A HIGHFEVER AND WAS SENT HOME FOR WORK UNTIL THE HOUSEHOLD HAS BEEN COVID TESTED. PATIENT IS TO BE TESTEDTODAY AND IS NOT RESCHEDULE FOR A TELE- HEALTH TODAY @ 1PM. documented in this encounter Plan of Treatment Upcoming Encounters Date Type Department Care Team (Late st Contact Info) Description 12/19/2024 10:30 AM CDT Lab [facility] [address] [phone] Blaze Haley MD [address] [place] [phone] Lab, [facility] 12/19/2024 10:45 AM CDT Office Visit [facility] [address] [phone] Blaze Haley MD [address] [place] [phone] documented as of this encounter Visit Diagnoses Not on filedocumented in this encounter Additional Health Concerns Assessment Noted Time PHQ-9 Depression Total Score: 0 01/25/20 19 10:38 AM CDT documented as of this encounter Care Teams Canine Enforcement Officer Relationship Specialty Start Date End Date Phil Glass [address] [place] [address] PCP - General Family Medicine 09/08/18 11/13/20 Blaze Haley MD [address] [place] [phone] PCP - General Oncology 11/14/20 documented as of this encounter
--- OUTSIDE RECORDS SUMMARY | 2024-09-09 15:51 | XMS_ITS | Encounter Summary ---
Author Organization [facility] Address [address] [place] [address] Care Team Providers Care Vice President Planning Name Role Phone Phil Glass MD Primary Care Provider [phone] Sammy Sierra MD Unavailable [phone] Encounter Details Date Type Department Care Team (Late st Contact Info) Description 07/02/2022 Abstract [facility] [address] [address] Adelita Velez MA Social History Tobacco Use Types Packs/Day Years Used Date Smoking Tobacco: Every Day Cigarettes 1 31.3 Started: 1993 Smokeless Tobacco: Never Comments:patient claimed to try to stop smoking. Alcohol Use Standard Drinks/Week Comments Never 0 (1 standard drink = 0.6 oz pur e alcohol) Comments Unknown Sex and Gender Information Value Date Recorded Sex Assigned at Female 06/24/2024 8:03 AM MARINE ENGINE MACHINIST Legal Sex Female 5:57 PM MARINE ENGINE MACHINIST Gender Identity Not on file Sexual Orientation Not on file documented as of this encounter Functional Status * RETIRED Are you deaf or do you have serious difficulty hearing Answer Date of Assessment Author Status No 04/19/2022 1:58 AM MARINE ENGINE MACHINIST Activ e * RETIRED Are you blind or do you have serious difficulty seeing, even when wearing glasses? Answer Date of Assessment Author Status No 04/19/2022 1:58 AM MARINE ENGINE MACHINIST Activ e * Do you have serious difficulty walking or climbing stairs? Answer Date of Assessment Author Status Yes 04/19/2022 1:58 AM MARINE ENGINE MACHINIST Senia De Anda RN Active * Do you have difficulty dressing or bathing? Answer Date of Assessment Author Status No 04/19/2022 1:58 AM Senia Rabago RN Active * Because of a physical, mental, or emotional condition, do you have difficulty doing errands alone such as visiting a doctor's office or shopping? Answer Date of Assessment Author Status No 04/19/2022 1:58 AM Senia Rabago RN Active documented as of this encounter Mental Status * Because of a physical, mental, or emotional condition, do you have serious difficulty concentrating, remembering, or making decisions? Answer Entry Date Author Status No 04/19/2022 1:58 AM Senia Rabago RN Active documented in this encounter Plan of Treatment Upcoming Encounters Date Type Department Care Team (Late st Contact Info) Description 10/03/2024 10:55 AM CDT Allied Health/Nurse Visit [facility], [place] [address] [place] [address] Sammy Sierra MD [facility]. [address] [place], [place] [address] 03/01/2025 12:00 PM CDT Office Visit [facility], [facility] [address] [place] [address] Bhupendra Johnson MD [facility] [address] [place], [place] [address] documented as of this encounter Goals Goal Patient Goal Type Associated Problems Recent Progress Patient-Stated? Author Health - patient able to perform ADLs independently Lifestyle No Adrian Tran RN documented as of this encounter Procedures Procedure Name Priority Date/Time Associated Diagnosis Comments CBC (OUTSIDE LAB) Routine 06/27/2022 COMPREHENSIVE METABOLIC PANEL Routine 06/27/2022 MAGNESIUM Routine 06/27/2022 documented in this encounter Results * MAGNESIUM (06/27/2022) MAGNESIUM 1.7 06/27/2022 us Default History Genericprovider LABORATORY Final Result * COMPREHENSIVE METABOLIC PANEL (06/27/2022) SODIUM S/P/B 140 POTASSIUM S/P/B 4.6 CO2 30 CHLORIDE S/P/B 101 GLUCOSE 174 mg/dL CALCIUM S/P/B 10.4 BUN 7 CREATININE S/P/B 0.9 0.5 - 1.0 EGFR NON-AFR. AMER. >60 <=90 ALKALINE PHOSPHATASE S/P/B 96 ALT 36 AST 24 BILIRUBIN TOTAL S/P/B 0.4 ALBUMIN S/P/B 4.8 3.5 - 5.0 TOTAL PROTEIN S/P/B 7.5 06/27/2022 us Default History Genericprovider LABORATORY Final Result * CBC (OUTSIDE LAB) (06/27/2022) WBC 11.7 HGB 14.3 HCT 42.4 PLT 265 06/27/2022 Default History Genericprovider LAB-OUTSIDE/ABST RACTED Final Result documented in this encounter Visit Diagnoses Not on filedocumented in this encounter Care Teams Vice President Planning Relationship Specialty Start Date End Date Phil Glass MD [address] [place] [phone] PCP - General FAMILY PRACTICE 04/19/22 Sammy Sierra MD [address] [address] Consulting Physician CLINICAL CARDIAC ELECTROPHYSIOLOGY 05/16/24 documented as of this encounter
--- OUTSIDE RECORDS SUMMARY | 2024-09-09 15:51 | XMS_ITS | Continuity of Care Document ---
Author Organization [facility] Address [address] [place] [address] [place] [address] Phone Care Team Providers Care Loss Prevention Investigator Name Role Phone Phil Glass MD Unavailable Unavailable Allergies, Adverse Reactions, Alerts Substance Reaction Status Criticality Iodinated Contrast Media Active No Information tramadol Active No Information morphine Active No Information Medications Medication Instructions Dosage Effective Dates (start - stop) Status Comments Percocet 10 mg-325 mg tablet take 1 tablet by oral route 3 times every day as needed as needed 1 tablet - Active PRN for pain, avoid driving or operate machines, Xanax 0.5 mg tablet take 1 tablet by oral route 3 times every day as needed 0.5 MG - Active avoid driving or operate machines, PRN for anxiety, Fosamax 70 mg tablet take 1 tablet by oral route every week in the morning, at least 30 min before first food, beverage, or medication of day 70 MG - Active do not lie down x 30 mins after taking med Protonix 40 mg tablet,delayed release take 1 tablet by oral route every day 40 MG - Active cyclobenzaprine 10 mg tablet take 1 tablet by oral route 2 times every day as needed 10 MG - Active pRN for pain, avoid driving or operate machines Vitamin D2 1,250 mcg (50,000 unit) capsule take one capsule orally once per week - Active Neurontin 300 mg capsule take 2 capsule by oral route 3 times every day 600 MG - Active avoid driving or operate machines ipratropium bromide 42 mcg (0.06 %) nasal spray spray 2 spray by intranasal route 3 times every day in each nostril 2.00 spray - Active metoprolol tartrate 25 mg tablet take 1 tablet by oral route 2 times every day 25 MG - Active losartan 25 mg tablet take 1 tablet by oral route every day 25 MG - Active Cymbalta 60 mg capsule,delayed release take 1 capsule by oral route every day 60 MG - Active rosuvastatin 10 mg tablet take 1 tablet by oral route every day 10 MG - Active glimepiride 2 mg tablet take 1 tablet by oral route every day 2 MG - Active OneTouch Verio test strips once per day - Active OneTouch UltraSoft Lancets BID - Active naloxone 0.4 mg/mL injection syringe inject 1 milliliter by IM route over once, may repeat at 2 to 3 minute intervals as needed - Active Ventolin HFA 90 mcg/actuation aerosol inhaler inhale 2 puff by inhalation route every 4 - 6 hours as needed as needed - Active PRN for sob albuterol sulfate 2.5 mg/3 mL (0.083 %) solution for nebulization inhale 3 milliliter by nebulization route every 6 hours as needed 2.5 MG - Active PRN for sob and wheezing Xarelto 20 mg tablet take 1 tablet by oral route every day with the evening meal 20 MG - Active Procedures Procedure Date OFFICE/OUTPATIENT VISIT, EST OFFICE/OUTPATIENT VISIT, EST OFFICE/OUTPATIENT VISIT, EST OFFICE/OUTPATIENT VISIT, EST OFFICE/OUTPATIENT VISIT, EST OFFICE/OUTPATIENT VISIT, EST OFFICE/OUTPATIENT VISIT, EST OFFICE/OUTPATIENT VISIT, EST OFFICE/OUTPATIENT VISIT, EST OFFICE/OUTPATIENT VISIT, EST OFFICE/OUTPATIENT VISIT, EST OFFICE/OUTPATIENT VISIT, EST OFFICE/OUTPATIENT VISIT, EST OFFICE/OUTPATIENT VISIT, EST OFFICE/OUTPATIENT VISIT, EST OFFICE/OUTPATIENT VISIT, EST OFFICE/OUTPATIENT VISIT, EST OFFICE/OUTPATIENT VISIT, EST OFFICE/OUTPATIENT VISIT, EST OFFICE/OUTPATIENT VISIT, EST OFFICE/OUTPATIENT VISIT, EST OFFICE/OUTPATIENT VISIT, EST OFFICE/OUTPATIENT VISIT, EST OFFICE/OUTPATIENT VISIT, EST OFFICE/OUTPATIENT VISIT, EST OFFICE/OUTPATIENT VISIT, EST OFFICE/OUTPATIENT VISIT, EST OFFICE/OUTPATIENT VISIT, EST OFFICE/OUTPATIENT VISIT, EST OFFICE/OUTPATIENT VISIT, EST OFFICE/OUTPATIENT VISIT, EST OFFICE/OUTPATIENT VISIT, EST OFFICE/OUTPATIENT VISIT, EST OFFICE/OUTPATIENT VISIT, EST OFFICE/OUTPATIENT VISIT, EST OFFICE/OUTPATIENT VISIT, EST OFFICE/OUTPATIENT VISIT, EST OFFICE/OUTPATIENT VISIT, EST OFFICE/OUTPATIENT VISIT, EST OFFICE/OUTPATIENT VISIT, EST OFFICE/OUTPATIENT VISIT, EST -2021 PREV VISIT, EST, AGE 40-64 OFFICE/OUTPATIENT VISIT, EST OFFICE/OUTPATIENT VISIT, EST OFFICE/OUTPATIENT VISIT, EST OFFICE/OUTPATIENT VISIT, EST OFFICE/OUTPATIENT VISIT, EST OFFICE/OUTPATIENT VISIT, EST OFFICE/OUTPATIENT VISIT, EST OFFICE/OUTPATIENT VISIT, EST OFFICE/OUTPATIENT VISIT, EST OFFICE/OUTPATIENT VISIT, EST OFFICE/OUTPATIENT VISIT, EST OFFICE/OUTPATIENT VISIT, EST OFFICE/OUTPATIENT VISIT, EST OFFICE/OUTPATIENT VISIT, EST OFFICE/OUTPATIENT VISIT, EST OFFICE/OUTPATIENT VISIT, EST OFFICE/OUTPATIENT VISIT, EST OFFICE/OUTPATIENT VISIT, EST OFFICE/OUTPATIENT VISIT, EST OFFICE/OUTPATIENT VISIT, EST OFFICE/OUTPATIENT VISIT, EST OFFICE/OUTPATIENT VISIT, EST OFFICE/OUTPATIENT VISIT, EST OFFICE/OUTPATIENT VISIT, EST OFFICE/OUTPATIENT VISIT, EST PREV VISIT, EST, AGE 40-64 OFFICE/OUTPATIENT VISIT, EST OFFICE/OUTPATIENT VISIT, EST OFFICE/OUTPATIENT VISIT, EST OFFICE/OUTPATIENT VISIT, EST OFFICE/OUTPATIENT VISIT, EST OFFICE/OUTPATIENT VISIT, EST OFFICE/OUTPATIENT VISIT, EST OFFICE/OUTPATIENT VISIT, EST OFFICE/OUTPATIENT VISIT, EST OFFICE/OUTPATIENT VISIT, EST OFFICE/OUTPATIENT VISIT, EST OFFICE/OUTPATIENT VISIT, EST OFFICE/OUTPATIENT VISIT, EST OFFICE/OUTPATIENT VISIT, EST PREV VISIT, NEW, AGE 40-64 OFFICE/OUTPATIENT VISIT, NEW OFFICE/OUTPATIENT VISIT, EST OFFICE/OUTPATIENT VISIT, EST OFFICE/OUTPATIENT VISIT, EST OFFICE/OUTPATIENT VISIT, EST PREV VISIT, EST, AGE 18-39 OFFICE/OUTPATIENT VISIT, EST Advance Directives Directive Yes / No Effective Date File Name No Information Encounters Encounter Description Practice Location Reason(s) For Visit Diagnoses Date Provider Providers Copied on Encounter OFFICE/OUTPA TIENT VISIT, EST [facility], [address] [place] [address] [place], [address], [place] tel:[phone] [facility] pain (chief complaint)an xiety1 (chief complaint)gr oin pain1 (chief complaint) Lower abdominal painChronic pain syndromeGeneraliz ed Anxiety Disorder Apr-0 5 Quan Villarreal. [address], [place], [place], [address] , [place]. tel:[phone] OFFICE/OUTPA TIENT VISIT, [facility], [address], [place], [place], [address], [place] tel:[phone] [facility] [place] pain (chief complaint)an xiety1 (chief complaint)co lon1 (chief complaint)sl eep apnea1 (chief complaint)DM (chief complaint) Chronic pain syndromeGeneraliz ed Anxiety DisorderObstructi ve sleep apnea hypopneaPolyp of colonEncounter for oth screening for malignant neoplasm of breastType 2 diabetes mellitus with diabetic mononeuropathy Aug- 5 Quan Villarreal. [address], [address], [place], [place], [address] , [place]. tel:[phone] OFFICE/OUTPA TIENT VISIT, [facility], [address], [place], [place], [address], [place] tel:[phone] [facility] [place] pain (chief complaint)an xiety1 (chief complaint)sl eep apnea1 (chief complaint)os teoporosis1 (chief complaint)kn ee pain1 (chief complaint) Chronic pain syndromeGeneraliz ed Anxiety DisorderObstructi ve sleep apnea hypopneaOsteoporo sisSynovial cyst of popliteal space of lt kneeEncounter for oth screening for malignant neoplasm of breastPolyp of colon 5 Quan Villarreal. [address], [address], [place], [place], [address] , [place]. [phone] OFFICE/OUTPA TIENT VISIT, [facility], [address] [place], [address], [place] tel:[phone] [facility] [place] pain (chief complaint)an xiety1 (chief complaint)sl eep apnea1 (chief complaint)os teoporosis1 (chief complaint) OsteoporosisChron ic pain syndromeGeneraliz ed Anxiety DisorderObstructi ve sleep apnea hypopnea 5 Quan Villarreal. [address], [place], [place], [address] , [place]. [phone] OFFICE/OUTPA TIENT VISIT, [facility], [address], [place], [place], [address], [place] tel:[phone] [facility] [place] pain (chief complaint)an xiety1 (chief complaint)GE RD1 (chief complaint)os teoporosis1 (chief complaint) OsteoporosisObstr uctive sleep apnea hypopneaGeneraliz ed Anxiety DisorderChronic pain syndromeSynovial cyst of popliteal space of lt kneeGERD w/o esophagitis 4 Quan Villarreal. [address], [address], [place], [place], [address] , [place]. tel:[phone] OFFICE/OUTPA TIENT VISIT, [facility], [address], [place], [place], [address], [place] tel:[phone] [facility] [place] knee pain1 (chief complaint)sl eep apnea1 (chief complaint)fa tty l iver1 (chief complaint) Synovial cyst of popliteal space of lt kneeObstructive sleep apnea hypopneaPain in left fingerFatty liverEncounter for oth screening for malignant neoplasm of breast 4 Quan Villarreal. [address], [place], [place], [address] , [place]. [phone] OFFICE/OUTPA TIENT VISIT, [facility], [address], [place], [place], [address], [place] tel:[phone] [facility] [place] pain (chief complaint)an xiety1 (chief complaint)ch est pain1 (chief complaint) Chronic pain syndromeGeneraliz ed Anxiety DisorderAnt chest-wall painObstructive sleep apnea hypopneaEncounter for screening mammogram for Ca of breast 4 Quan Villarreal. [address], [address], [place], [place], [address] , [place]. tel:[phone] OFFICE/OUTPA TIENT VISIT, [facility], [address], [place], [place], [address], [place] tel:[phone] [facility] pain (chief complaint)an xiety1 (chief complaint)ox ygen1 (chief complaint)si nus (chief complaint) Chronic pain syndromeGeneraliz ed Anxiety DisorderObstructi ve sleep apnea hypopneaAllergic rhinitis due to pollen 4 Quan Villarreal. [address], [place], [place], [address] , [place]. tel:[phone] OFFICE/OUTPA TIENT VISIT, EST [facility] [place], [address], [place], [place], [address], [place] tel:[phone] [facility] pain (chief complaint)an xiety1 (chief complaint)ta chycardiaa (chief complaint)HL P (chief complaint)HT N (chief complaint) Chronic pain syndromeGeneraliz ed Anxiety DisorderTachycard iaMixed hyperlipidemiaEss ential (primary) hypertension 4 Quan Villarreal. [address], [place], [place], [address] , [place]. tel:[phone] OFFICE/OUTPA TIENT VISIT, EST [facility] [place], [address], [place], [place], [address], [place] tel:[phone] [facility] pain (chief complaint)an xiety1 (chief complaint)DM (chief complaint)ta chycardia1 (chief complaint)ta chycardia1 (chief complaint) Type 2 diabetes mellitus with diabetic mononeuropathyGen eralized Anxiety DisorderChronic pain syndromeMixed hyperlipidemiaTac hycardia 4 Quan Villarreal. [address], [place], [place], [address] , [place]. tel:[phone] OFFICE/OUTPA TIENT VISIT, EST [facility] [place], [address], [place], [place], [address], [place] tel:[phone] [facility] pain (chief complaint)an xiety1 (chief complaint)AP S (chief complaint) Chronic pain syndromeGeneraliz ed Anxiety DisorderCoagulati on defect 4 Quan Villarreal. [address], [place], [place], [address] , [place]. tel:[phone] [facility] [place], [address], [place], [place], [address], [place] tel:[phone] [facility] [place] No Information 4 Quan Villarreal. [address], [place], [place], [address] , [place]. tel:[phone] OFFICE/OUTPA TIENT VISIT, [facility], [address], [place], [place], [address], [place] tel:[phone] [facility] [place] pain (chief complaint)an xiety1 (chief complaint)pa lpitation1 (chief complaint)co agulopathy1 (chief complaint) Chronic pain syndromeGeneraliz ed Anxiety DisorderPalpitati onsCoagulation defect 4 Quan Villarreal. [address], [place], [place], [address] , [place]. tel:[phone] OFFICE/OUTPA TIENT VISIT, EST [facility] [place], [address], [place], [place], [address], [place] tel:[phone] [facility] [place] pain (chief complaint)an xiety1 (chief complaint)pa lpitation1 (chief complaint)GE RD1 (chief complaint) Chronic pain syndromeGeneraliz ed Anxiety DisorderEncntr screen mammogram for malignant neoplasm of breastPalpitation sGERD w/o esophagitis 4 Quan Villarreal. [address], [place], [place], [address] , [place]. tel:[phone] OFFICE/OUTPA TIENT VISIT, EST [facility] [place], [address], [place], [place], [address], [place] tel:[phone] [facility] [place] anxiety1 (chief complaint)pa in (chief complaint)pa lpitation1 (chief complaint) Chronic pain syndromeGeneraliz ed Anxiety DisorderPalpitati onsEncntr screen mammogram for malignant neoplasm of breast 4 Glass Phil. [address], [place], [place], [address] , [place]. tel:[phone] OFFICE/OUTPA TIENT VISIT, [facility], [address], [place], [place], [address], [place] tel:[phone] [facility] [place] UTI1 (chief complaint)an xiety1 (chief complaint)ba ck pain1 (chief complaint)DM (chief complaint) Chronic pain syndromeGeneraliz ed Anxiety DisorderType 2 diabetes mellitus with diabetic mononeuropathyAcu te cystitis with hematuria 4 Glass Phil. [address], [place], [place], [address] , [place]. tel:[phone] OFFICE/OUTPA TIENT VISIT, [facility], [address], [place], [place], [address], [place] tel:[phone] [facility] [place] UTI1 (chief complaint) Acute cystitis with hematuria Aug-0 4 Glass Phil. [address], [place], [place], [address] , [place]. tel:[phone] OFFICE/OUTPA TIENT VISIT, [facility], [address], [place], [place], [address], [place] tel:[phone] [facility] [place] pain (chief complaint)an xiety1 (chief complaint)co allison polyp1 (chief complaint)he aring loss1 (chief complaint)DM (chief complaint)HL P (chief complaint) Generalized Anxiety DisorderChronic pain syndromePolyp of colonTinnitus, bilateralType 2 diabetes mellitus with diabetic mononeuropathyMix ed hyperlipidemia Jul- 4 Glass Phil. [address], [place], [place], [address] , [place]. tel:[phone] OFFICE/OUTPA TIENT VISIT, [facility], [address], [place], [place], [address], [place] tel:[phone] [facility] [place] pain (chief complaint)an xiety1 (chief complaint)DM (chief complaint)ea r pain1 (chief complaint) Chronic pain syndromeGeneraliz ed Anxiety DisorderType 2 diabetes mellitus with diabetic mononeuropathyPol yp of colonTinnitus, bilateral 4 Quan Villarreal. [address], [place], [place], [address] , [place]. tel:[phone] OFFICE/OUTPA TIENT VISIT, [facility], [address], [place], [place], [address], [place] tel:[phone] [facility] [place] pain (chief complaint)an xiety1 (chief complaint)ti nnitus1 (chief complaint) Sensorineural hearing loss, bilateralGenerali zed Anxiety DisorderChronic pain syndromeTinnitus, bilateral 3 Quan Villarreal. [address], [place], [place], [address] , [place]. tel:[phone] OFFICE/OUTPA TIENT VISIT, [facility], [address], [place], [place], [address], [place] tel:[phone] [facility] [place] anxiety1 (chief complaint)pa in (chief complaint)ve rtigo1 (chief complaint)DM (chief complaint) Generalized Anxiety DisorderChronic pain syndromeBenign paroxysmal vertigo, bilateralSensorin eural hearing loss, bilateralType 2 diabetes mellitus with diabetic mononeuropathy 3 Quan Villarreal. [address], [place], [place], [address] , [place]. tel:[phone] OFFICE/OUTPA TIENT VISIT, [facility], [address], [place], [place], [address], [place] tel:[phone] [facility] [place] anxiety1 (chief complaint)ve rtigo1 (chief complaint)pa in (chief complaint)DM (chief complaint)os teoporosis1 (chief complaint) Chronic pain syndromeGeneraliz ed Anxiety DisorderType 2 diabetes mellitus with diabetic mononeuropathyBen ign paroxysmal vertigo, bilateralOsteopor osis Nov 3 Quan Phil. [address], [place], [place], [address] , [place]. tel:[phone] OFFICE/OUTPA TIENT VISIT, [facility], [address] [place], [address], [place] tel:[phone] [facility] anxiety1 (chief complaint)pa in (chief complaint)HL P (chief complaint)an xiety1 (chief complaint)HT N (chief complaint) Chronic pain syndromeGeneraliz ed Anxiety DisorderEssential (primary) hypertensionMixed hyperlipidemiaTyp e 2 diabetes mellitus with diabetic mononeuropathyOst eoporosis 3 Quan Villarreal. [address], [place], [place], [address] , [place]. [phone] OFFICE/OUTPA TIENT VISIT, [facility], [address], [place], [place], [address], [place] tel:[phone] [facility] [place] anxiety1 (chief complaint)pa in (chief complaint)GE RD1 (chief complaint)DM (chief complaint) Chronic pain syndromeType 2 diabetes mellitus with diabetic mononeuropathyGen eralized Anxiety DisorderGERD w/o esophagitis 3 Quan Wu [address], [place], [place], [address] , [place]. [phone] OFFICE/OUTPA TIENT VISIT, [facility], [address] [place], [address], [place] tel:[phone] [facility] anxiety1 (chief complaint)pa in (chief complaint)DM (chief complaint)si nus allergy1 (chief complaint) Chronic pain syndromeGeneraliz ed Anxiety DisorderType 2 diabetes mellitus with diabetic mononeuropathyBlo atingAllergic rhinitis due to pollen 3 Quan Wu [address], [place], [place], [address] , [place]. [phone] OFFICE/OUTPA TIENT VISIT, [facility], [address] [place], [address], [place] tel:[phone] [facility] anxiety1 (chief complaint)pa in (chief complaint)DM (chief complaint) Chronic pain syndromeGeneraliz ed Anxiety DisorderType 2 diabetes mellitus with diabetic mononeuropathyBlo ating 3 uQan Villarreal. [address], [address], [place], [place], [address] , [place]. tel:[phone] OFFICE/OUTPA TIENT VISIT, [facility], [address], [place], [place], [address], [place] tel:[phone] [facility] [place] anxiety1 (chief complaint)pa in (chief complaint)DM (chief complaint)in sect bite (chief complaint) Generalized Anxiety DisorderChronic pain syndromeType 2 diabetes mellitus with diabetic mononeuropathyOst eoporosisRash 3 Quan Villarreal. [address], [place], [place], [address] , [place]. tel:[phone] OFFICE/OUTPA TIENT VISIT, [facility], [address], [place], [place], [address], [place] tel:[phone] [facility] [place] anxiety1 (chief complaint)pa in (chief complaint)DM (chief complaint)fa tty liver1 (chief complaint) Type 2 diabetes mellitus with diabetic mononeuropathyFat ty liverGeneralized Anxiety DisorderChronic pain syndromeAbnormal weight loss 3 Quan Wu [address], [place], [place], [address] , [place]. tel:[phone] OFFICE/OUTPA TIENT VISIT, [facility], [address], [place], [place], [address], [place] tel:[phone] [facility] [place] palpitation1 (chief complaint)an xiety1 (chief complaint)pa in (chief complaint)DM (chief complaint)os teoporosis1 (chief complaint) PalpitationsType 2 diabetes mellitus with diabetic mononeuropathyChr onic pain syndromeGeneraliz ed Anxiety DisorderOsteoporo sis 3 Quan Villarreal. [address], [place], [place], [address] , [place]. tel:[phone] OFFICE/OUTPA TIENT VISIT, EST [facility] [place], [address], [place], [place], [address], [place] tel:[phone] [facility] pain (chief complaint)pa in (chief complaint)po lyp1 (chief complaint)NS VT1 (chief complaint)os teoporosis1 (chief complaint) Chronic pain syndromeGeneraliz ed Anxiety DisorderOsteoporo sisPalpitationsPo lyp of [facility] for oth screening for malignant neoplasm of breast 3 Quan Villarreal. [address], [address], [place], [place], [address] , [place]. tel:[phone] OFFICE/OUTPA TIENT VISIT, [facility], [address], [place], [place], [address], [place] tel:[phone] [facility] [place] pain (chief complaint)an xiety1 (chief complaint)GE RD1 (chief complaint) Chronic pain syndromeGeneraliz ed Anxiety DisorderGERD w/o esophagitisOsteop orosis 3 Quan Villarreal. [address], [place], [place], [address] , [place]. tel:[phone] OFFICE/OUTPA TIENT VISIT, [facility], [address], [place], [place], [address], [place] tel:[phone] [facility] osteoporosis 1 (chief complaint)pa in (chief complaint)an xiety1 (chief complaint)NS VT1 (chief complaint)fa tty liver1 (chief complaint) Chronic pain syndromeGeneraliz ed Anxiety DisorderOsteoporo sisFatty liverTachycardia, unspecified 3 Quan Villarreal. [address], [place], [place], [address] , [place]. tel:[phone] OFFICE/OUTPA TIENT VISIT, [facility], [address], [place], [place], [address], [place] tel:[phone] [facility] pain (chief complaint)an xiety1 (chief complaint)NS VT1 (chief complaint) OsteoporosisChron ic pain syndromeGeneraliz ed Anxiety DisorderTachycard ia, unspecified 2 Quan Wu [address], [place], [place], [address] , [place]. tel:[phone] OFFICE/OUTPA TIENT VISIT, [facility], [address] [place], [address], [place] tel:[phone] [facility] [place] osteoporosis 1 (chief complaint)pa in1 (chief complaint)an xiety1 (chief complaint)pa lpitation1 (chief complaint) OsteoporosisPalpi tationsChronic pain syndromeGeneraliz ed Anxiety Disorder 2 Quan Wu [address], [address], [place], [place], [address] , [place]. [phone] OFFICE/OUTPA TIENT VISIT, [facility], [address] [place], [address], [place] tel:[phone] [facility] [place] pain (chief complaint)an xiety1 (chief complaint)ch est pain1 (chief complaint)HT N (chief complaint) Chronic pain syndromeGeneraliz ed Anxiety DisorderPalpitati onsEssential (primary) hypertension 2 Quan uW [address], [place], [place], [address] , [place]. tel:[phone] OFFICE/OUTPA TIENT VISIT, [facility], [address] [place], [address], [place] tel:[phone] [facility] [place] Mixed hyperlipidemiaGER D w/o esophagitisChroni c pain syndromeGeneraliz ed Anxiety Disorder 2 Quan Wu [address], [address], [place], [place], [address] , [place]. [phone] OFFICE/OUTPA TIENT VISIT, [facility], [address] [place], [address], [place] tel:[phone] [facility] [place] DM (chief complaint)lauren ekocytosis1 (chief complaint)lo w D (chief complaint)he adache1 (chief complaint)an emia1 (chief complaint) Generalized Anxiety DisorderChronic pain syndromeType 2 diabetes mellitus with diabetic mononeuropathyLeu kocytosisMigraine without aura, not intractable, without status migrainosusIron deficiency 2 Quan Wu [address], [address], [place], [place], [address] , [place]. tel:[phone] OFFICE/OUTPA TIENT VISIT, [facility], [address], [place], [place], [address], [place] tel:[phone] [facility], [place] pain (chief complaint)an xiety1 (chief complaint)CO VID (chief complaint)he adache1 (chief complaint) COVID-19Chronic pain syndromeGeneraliz ed Anxiety DisorderChronic migraine without aura, not intractable, without status migrainosus 2 Quan Wu [address], [address], [place], [place], [address] , [place]. [phone] OFFICE/OUTPA TIENT VISIT, [facility], [address] [place] [address], [place] tel:[phone] [facility], [place] COVID19 (chief complaint)HT N (chief complaint)pa in (chief complaint)an xiety1 (chief complaint)he adache1 (chief complaint) COVID-19Generaliz ed Anxiety DisorderEssential (primary) hypertensionChron ic pain syndromeMigraine without aura, not intractable, without status migrainosus 2 Quan Wu [address], [address], [place], [place], [address] , [place]. tel:[phone] OFFICE/OUTPA TIENT VISIT, [facility], [address], [place], [place], [address], [place] tel:[phone] [facility], [place] pain (chief complaint)an xiety1 (chief complaint)he adache1 (chief complaint)pa in (chief complaint) Chronic pain syndromeGeneraliz ed Anxiety DisorderNeuropath yType 2 diabetes mellitus with diabetic mononeuropathyEss ential (primary) hypertension 2 Quan Wu [address], [address], [place], [place], [address] , [place]. tel:[phone] OFFICE/OUTPA TIENT VISIT, EST [facility], [place], [address], [place], [place], [address], [place] tel:[phone] [facility] [place] anxiety1 (chief complaint)pa in1 (chief complaint) Chronic pain syndromeGeneraliz ed Anxiety Disorder Sep- 2 Quan Wu [address], [address], [place], [place], [address] , [place]. tel:[phone] OFFICE/OUTPA TIENT VISIT, EST [facility] [place], [address], [place], [place], [address], [place] tel:[phone] [facility] [place] anxiety1 (chief complaint)pa in (chief complaint)he adache1 (chief complaint)HL P (chief complaint)si nus allergy1 (chief complaint) Chronic pain syndromeGeneraliz ed Anxiety DisorderOther visual disturbancesHyper lipidemiaAllergic rhinitis 2 Quan Wu [address], [address], [place], [place], [address] , [place]. tel:[phone] PREV VISIT, EST, AGE 40-64 [facility] [place], [address] [place], [address], [place] tel:[phone] [facility] [place] physical (chief complaint) GERD w/o esophagitisType 2 diabetes mellitus with diabetic mononeuropathyHyp erlipidemiaEssent ial (primary) hypertensionIron deficiency anemiaGeneralized Anxiety DisorderChronic pain syndromeEncounter for general adult medical exam w abnormal findings 2 Quan Wu [address], [address], [place], [place], [address] , [place]. tel:[phone] OFFICE/OUTPA TIENT VISIT, EST [facility] [place], [address] [place], [address], [place] tel:[phone] [facility] [place] polyp1 (chief complaint)he adache1 (chief complaint)an xiety1 (chief complaint)pa in (chief complaint) HeadachePolyp of colonGeneralized Anxiety DisorderChronic pain syndromeGERD w/o esophagitis 2 Quan Wu [address], [address], [place], [place], [address] , [place]. tel:[phone] OFFICE/OUTPA TIENT VISIT, [facility], [address], [place], [place], [address], [place] tel:[phone] [facility] [place] anxiety1 (chief complaint)pa in (chief complaint)he adache1 (chief complaint)co allison polyp1 (chief complaint)DM (chief complaint) Generalized Anxiety DisorderChronic pain syndromeType 2 diabetes mellitus with diabetic mononeuropathyHea dacheBenign neoplasm of colon 1 Quan Wu [address], [address], [place], [place], [address] , [place]. tel:[phone] OFFICE/OUTPA TIENT VISIT, [facility], [address], [place], [place], [address], [place] tel:[phone] [facility] [place] headache1 (chief complaint)an xiety1 (chief complaint)pa in (chief complaint)HL P (chief complaint)HT N (chief complaint) Chronic pain syndromeGeneraliz ed Anxiety DisorderEssential (primary) hypertensionHyper lipidemiaHeadache Memory loss 1 Quan Wu [address], [address], [place], [place], [address] , [place]. tel:[phone] OFFICE/OUTPA TIENT VISIT, [facility], [address] [place], [address], [place] tel:[phone] [facility] [place] headache1 (chief complaint)an xiety1 (chief complaint)pa in (chief complaint) Chronic pain syndromeGeneraliz ed Anxiety DisorderHeadacheM silvia lossPostmenopausa l status 1 Quan Wu [address], [address], [place], [place], [address] , [place]. [phone] OFFICE/OUTPA TIENT VISIT, [facility], [address] [place], [address], [place] tel:[phone] [facility] [place] anxiety1 (chief complaint)pa in (chief complaint)GE RD1 (chief complaint)ae mia1 (chief complaint)HT N (chief complaint) Chronic pain syndromeGeneraliz ed Anxiety DisorderIron deficiency anemiaGERD w/o esophagitisPostme nopausal statusEssential (primary) hypertension Feb- 1 Quan Wu [address], [address], [place], [place], [address] , [place]. [phone] OFFICE/OUTPA TIENT VISIT, [facility], [address], [place], [place], [address], [place] tel:[phone] [facility] [place] HLP (chief complaint)DM (chief complaint)an emia1 (chief complaint)an xiety1 (chief complaint)pa in (chief complaint) Chronic pain syndromeGeneraliz ed Anxiety DisorderIron deficiency anemiaHyperlipide miaType 2 diabetes mellitus with diabetic mononeuropathyLeu kocytosis 1 Quan Wu [address], [address], [place], [place], [address] , [place]. [phone] OFFICE/OUTPA TIENT VISIT, [facility], [address] [place], [address], [place] tel:[phone] [facility] [place] pain (chief complaint)an xitey1 (chief complaint)ir on deficiency1 (chief complaint)GE RD1 (chief complaint) Iron deficiency anemiaGeneralized Anxiety DisorderChronic pain syndromeGERD w/o esophagitis 1 Quan Wu [address], [address], [place], [place], [address] , [place]. tel:[phone] OFFICE/OUTPA TIENT VISIT, [facility], [address], [place], [place], [address], [place] tel:[phone] [facility] [place] iron deficiency1 (chief complaint)ly mph node1 (chief complaint)SI JACKY (chief complaint) Iron deficiency anemiaAllergic rhinitisLymphaden opathyBacterial enteritis 1 Quan Wu [address], [address], [place], [place], [address] , [place]. tel:[phone] OFFICE/OUTPA TIENT VISIT, [facility], [address], [place], [place], [address], [place] tel:[phone] [facility] [place] SIBO (chief complaint)an emia1 (chief complaint)DM (chief complaint)HL P (chief complaint)ae mia1 (chief complaint)pa in (chief complaint) Chronic pain syndromeGeneraliz ed Anxiety DisorderHyperlipi demiaType 2 diabetes mellitus with diabetic mononeuropathyTob acco useBacterial enteritis 1 Quan Wu [address], [address], [place], [place], [address] , [place]. tel:[phone] OFFICE/OUTPA TIENT VISIT, [facility], [address], [place], [place], [address], [place] tel:[phone] [facility] [place] leukocytosis 1 (chief complaint)HL P (chief complaint)pa in (chief complaint)an xiety1 (chief complaint) Generalized Anxiety DisorderChronic pain syndromeHyperlipi demiaLeukocytosis Iron deficiency 1 Quan Wu [address], [place], [place], [address] , [place]. tel:[phone] OFFICE/OUTPA TIENT VISIT, [facility], [address] [place], [address], [place] tel:[phone] [facility] [place] anemia1 (chief complaint)DM (chief complaint)le ukocytosis1 (chief complaint) LeukocytosisIron deficiencyType 2 diabetes mellitus with diabetic mononeuropathyPro teinuriaElevated C-reactive protein (CRP) 1 Quan Wu [address], [address], [place], [place], [address] , [place]. tel:[phone] OFFICE/OUTPA TIENT VISIT, [facility], [address], [place], [place], [address], [place] tel:[phone] [facility] [place] leukocytosis 1 (chief complaint)DM (chief complaint)HL P (chief complaint)lo w D (chief complaint) LeukocytosisType 2 diabetes mellitus with diabetic mononeuropathyVit gordon D deficiency, unspecifiedHyperl ipidemia Aug- 1 Quan Villarreal. [address], [address], [place], [place], [address] , [place]. tel:[phone] OFFICE/OUTPA TIENT VISIT, [facility], [address], [place], [place], [address], [place] tel:[phone] [facility] [place] pain (chief complaint)an xiety1 (chief complaint)co allison polyp1 (chief complaint)gl ucose1 (chief complaint) Chronic pain syndromeGeneraliz ed Anxiety DisorderPolyp of colonType 2 diabetes mellitus without complications 1 Quan Phil. [address], [address], [place], [place], [address] , [place]. tel:[phone] OFFICE/OUTPA TIENT VISIT, [facility], [address], [place], [place], [address], [place] tel:[phone] [facility] pain (chief complaint)an xiety1 (chief complaint)ne e pain1 (chief complaint) Chronic pain syndromeGeneraliz ed Anxiety DisorderPain in right knee 1 Quan Villarreal. [address], [address], [place], [place], [address] , [place]. tel:[phone] OFFICE/OUTPA TIENT VISIT, [facility], [address], [place], [place], [address], [place] tel:[phone] [facility] [place] pain (chief complaint)an xiety1 (chief complaint) Chronic pain syndromeGeneraliz ed Anxiety Disorder 1 Quan Villarreal. [address], [address], [place], [place], [address] , [place]. tel:[phone] OFFICE/OUTPA TIENT VISIT, [facility], [address], [place], [place], [address], [place] tel:[phone] [facility] [place] pain (chief complaint)an xiety1 (chief complaint)GE RD1 (chief complaint)gl ucose1 (chief complaint)ar m pain (chief complaint) GERD w/o esophagitisGenera lized Anxiety DisorderChronic pain syndromeHyperglyc emiaPain in left upper arm Dec-0 3-202 0 Quan Villarreal. [address], [address], [place], [place], [address] , [place]. [phone] OFFICE/OUTPA TIENT VISIT, [facility], [address], [place], [place], [address], [place] tel:[phone] [facility] [place] pain (chief complaint)an xiety1 (chief complaint)CO VID-19 (chief complaint)ar m swelling1 (chief complaint) Generalized Anxiety DisorderChronic pain syndromePain in left upper armViral infection 0 Quan Villarreal. [address], [address], [place], [place], [address] , [place]. [phone] OFFICE/OUTPA TIENT VISIT, [facility], [address] [place], [address], [place] tel:[phone] [facility] [place] COVID-19 (chief complaint)pa in (chief complaint)an xiety1 (chief complaint)co ld sore1 (chief complaint) Chronic pain syndromeGeneraliz ed Anxiety DisorderViral infectionHerpes simplex infection 0 Quan Wu [address], [address], [place], [place], [address] , [place]. [phone] OFFICE/OUTPA TIENT VISIT, [facility], [address], [place], [place], [address], [place] tel:[phone] [facility] [place] COVID-19 (chief complaint) Viral infectionShortnes s of breath Sep-2 0 Quan Wu [address], [address], [place], [place], [address] , [place]. tel:[phone] OFFICE/OUTPA TIENT VISIT, [facility], [address], [place], [place], [address], [place] tel:[phone] [facility] [place] HTN (chief complaint)GE RD1 (chief complaint)pa in (chief complaint)an xiety1 (chief complaint) Encounter for oth screening for malignant neoplasm of breastGeneralized Anxiety DisorderChronic pain syndromeEssential (primary) hypertensionGERD w/o esophagitis Sep-1 0 Quan Wu [address], [address], [place], [place], [address] , [place]. tel:[phone] OFFICE/OUTPA TIENT VISIT, [facility], [address], [place], [place], [address], [place] tel:[phone] [facility] [place] pain (chief complaint)an xiety1 (chief complaint)po stmenopausal 1 (chief complaint)pa lpitation1 (chief complaint) Chronic pain syndromeGeneraliz ed Anxiety DisorderPostmenop ausal statusChest pain Jan- 0 Quan Wu [address], [address], [place], [place], [address] , [place]. tel:[phone] OFFICE/OUTPA TIENT VISIT, [facility], [address], [place], [place], [address], [place] tel:[phone] [facility] [place] chest pain1 (chief complaint)si nus1 (chief complaint)ba ck pain1 (chief complaint)an xiety1 (chief complaint) Chronic pain syndromeGeneraliz ed Anxiety DisorderAllergic rhinitisEssential (primary) hypertensionChest pain 0 Quan uW [address], [address], [place], [place], [address] , [place]. tel:[phone] OFFICE/OUTPA TIENT VISIT, [facility], [address], [place], [place], [address], [place] tel:[phone] [facility] [place] neck pain1 (chief complaint)ba ck pain1 (chief complaint)an xity1 (chief complaint)si nus allergy1 (chief complaint) TorticollisChroni c pain syndromeGeneraliz ed Anxiety DisorderAllergic rhinitisChest pain 0 Glass Phil. [address], [address], [place], [place], [address] , [place]. tel:[phone] OFFICE/OUTPA TIENT VISIT, EST [facility] [place], [address], [place], [place], [address], [place] tel:[phone] [facility] [place] back pain1 (chief complaint)CO VID (chief complaint)an xiety1 (chief complaint)GE RD1 (chief complaint) Generalized Anxiety DisorderChronic pain syndromeGERD w/o esophagitisViral infectionConstipa tion 0 Quan Villarreal. [address], [address], [place], [place], [address] , [place]. tel:[phone] PREV VISIT, EST, AGE 40-64 [facility] [place], [address], [place], [place], [address], [place] tel:[phone] [facility] [place] Physical (chief complaint) Encounter for general adult medical exam w abnormal findingsAllergic rhinitisChronic pain syndromeGERD w/o esophagitisMetabo lic syndromeIdiopathi c progressive neuropathyGeneral ized Anxiety DisorderHyperlipi demia 0 Glass Phil. [address], [address], [place], [place], [address] , [place]. tel:[phone] OFFICE/OUTPA TIENT VISIT, EST [facility] [place], [address], [place], [place], [address], [place] tel:[phone] [facility] [place] pain1 (chief complaint)an xiety1 (chief complaint)si nus (chief complaint)re ctal bleeding1 (chief complaint) Generalized Anxiety DisorderAllergic rhinitisIdiopathi c progressive neuropathyOccult blood in feces 0 Glass Phil. [address], [address], [place], [place], [address] , [place]. tel:[phone] OFFICE/OUTPA TIENT VISIT, [facility], [address], [place], [place], [address], [place] tel:[phone] [facility] [place] rectal bleeding1 (chief complaint)pa in (chief complaint)an xiety1 (chief complaint)GE RD1 (chief complaint) Idiopathic progressive neuropathyGeneral ized Anxiety DisorderChronic pain syndromeGERD w/o esophagitisOccult blood in feces 0 Quan Villarreal. [address], [address], [place], [place], [address] , [place]. [phone] OFFICE/OUTPA TIENT VISIT, [facility], [address], [place], [place], [address], [place] tel:[phone] [facility] [place] chronic pain1 (chief complaint)an xiety1 (chief complaint)he aring loss1 (chief complaint) Generalized Anxiety DisorderAcute sinusitisIdiopath ic progressive neuropathyChest pain 0 Quan Villarreal. [address], [address], [place], [place], [address] , [place]. [phone] OFFICE/OUTPA TIENT VISIT, [facility], [address], [place], [place], [address], [place] tel:[phone] [facility] [place] chronic pain1 (chief complaint)an xiety1 (chief complaint)garcia nd pain1 (chief complaint)HT N (chief complaint) Chronic pain syndromeGeneraliz ed Anxiety DisorderPain in unspecified jointEssential (primary) hypertension 0-201 9 Quan Villarreal. [address], [address], [place], [place], [address] , [place]. tel:[phone] Referring Provider: Phil Glass [address], [place], [place], [address]. tel:[phone] OFFICE/OUTPA TIENT VISIT, [facility], [address], [place], [place], [address], [place] tel:[phone] [facility] [place] chronic pain1 (chief complaint)an xiety1 (chief complaint)GE RD1 (chief complaint)garcia nd (chief complaint)garcia nd nodule1 (chief complaint) Chronic pain syndromeIdiopathi c progressive neuropathyGeneral ized Anxiety DisorderGERD w/o esophagitisPain in right handChest pain 9 Quan Villarreal. [address], [address], [place], [place], [address] , [place]. tel:[phone] Referring Provider: Cleve Dug[address], [place], [place], [address]. tel:[phone] OFFICE/OUTPA TIENT VISIT, [facility], [address], [place], [place], [address], [place] tel:[phone] [facility] [place] anxiety1 (chief complaint)ne uropathy1 (chief complaint)ch est pain1 (chief complaint)fi nger pain1 (chief complaint) Generalized Anxiety DisorderIdiopathi c progressive neuropathyPain in right handChronic pain syndromeChest pain 9 Quan Villarreal. [address], [address], [place], [place], [address] , [place]. tel:[phone] Referring Provider: Cleve Dugan [address], [place], [place], [address]. tel:[phone] OFFICE/OUTPA TIENT VISIT, [facility], [address] [place], [address], [place] tel:[phone] [facility] [place] chronic pain1 (chief complaint)an xiety1 (chief complaint)co aguloapathy1 (chief complaint) Chronic pain syndromeIdiopathi c progressive neuropathyGeneral ized Anxiety DisorderLong term use of anticoagulant Feb-3 0 9 Quan Villarreal. [address], [address], [place], [place], [address] , [place]. tel:[phone] Referring Provider: Cleve Dugan [address], [place], [place], [address]. tel:[phone] OFFICE/OUTPA TIENT VISIT, [facility], [address], [place], [place], [address], [place] tel:[phone] [facility] [place] neuropathy1 (chief complaint)an xiety1 (chief complaint)co agulopathy1 (chief complaint)ba ck pain1 (chief complaint)GE RD1 (chief complaint) Idiopathic progressive neuropathyGERD w/o esophagitisGenera lized Anxiety DisorderChronic pain syndromeLong term use of anticoagulant 9 Quan Villarreal. [address], [address], [place], [place], [address] , [place]. tel:[phone] Referring Provider: Cleve Dugan [address], [place], [place], [address]. tel:[phone] OFFICE/OUTPA TIENT VISIT, [facility], [address], [place], [place], [address], [place] tel:[phone] [facility] [place] polyp1 (chief complaint)co agulopathy1 (chief complaint)ne uorpathy1 (chief complaint)hy poglycemia1 (chief complaint) Pulmonary embolismIdiopathi c progressive neuropathyGeneral ized Anxiety DisorderHypoglyce fidel 9 Quan Wu [address], [address], [place], [place], [address] , [place]. tel:[phone] Referring Provider: Cleve Dugan [address], [place], [place], [address]. tel:[phone] OFFICE/OUTPA TIENT VISIT, [facility], [address], [place], [place], [address], [place] tel:[phone] [facility] [place] neuropathy1 (chief complaint)an xiety1 (chief complaint)ve in1 (chief complaint)GE RD1 (chief complaint) Pulmonary embolismVenous insufficiencyChro jorge luis pain syndromeGeneraliz ed Anxiety DisorderGERD w/o esophagitis 9 Quan Wu [address], [address], [place], [place], [address] , [place]. tel:[phone] Referring Provider: Cleve Dugan [address], [place], [place], [address]. tel:[phone] OFFICE/OUTPA TIENT VISIT, [facility], [address] [place], [address], tel:[phone] [facility] [place] chronic pain1 (chief complaint)an xiety1 (chief complaint)co aguloapthy1 (chief complaint)ge rd1 (chief complaint) GERD w/o esophagitisIdiopa thic progressive neuropathyGeneral ized Anxiety DisorderPulmonary embolismHyperglyc emia 9 Quan Villarreal. [address], [address], [place], [place], [address] , [place]. [phone] Referring Provider: Phil Glass [address] [facility] [address], [place], [place], [address]. tel:[phone] OFFICE/OUTPA TIENT VISIT, [facility], [address] [place], [address], [place] tel:[phone] [facility] [place] chronic pain1 (chief complaint)an xiety1 (chief complaint)tr emor1 (chief complaint)co agulopathy1 (chief complaint) Generalized Anxiety DisorderIdiopathi c progressive neuropathyPulmona ry embolismTremorChr onic pain syndrome 9 Quan Villarreal. [address], [address], [place], [place], [address] , [place]. tel:[phone] OFFICE/OUTPA TIENT VISIT, [facility], [address] [place], [place], [address], [place] tel:[phone] [facility] [place] PreDM (chief complaint)HL P (chief complaint)an xiety1 (chief complaint)PE (chief complaint)tr emor1 (chief complaint) HyperlipidemiaMet abolic syndromeIdiopathi c progressive neuropathyPulmona ry embolismLymphocyt osisGeneralized Anxiety Disorder 0 9 Quan Villarreal. [address], [address], [place], [place], [address] , [place]. [phone] Referring Provider: Phil Glass [address], [place], [place], [address]. tel:[phone] PREV VISIT, NEW, AGE 40-64 [facility] [place], [address], [place], [place], [address], [place] tel:[phone] [facility] [place] PHysical (chief complaint) Encounter for general adult medical exam w abnormal findingsIdiopathi c progressive neuropathyGERD w/o esophagitisBenign neoplasm of colonGeneralized Anxiety DisorderPulmonary embolism Aug- 9 Quan Villarreal. [address], [address], [place], [place], [address] , [place]. [phone] Referring Provider: [facility]ugan [facility], [place], [place], [address]. tel:[phone] OFFICE/OUTPA TIENT VISIT, [facility], [address], [place], [place], [address], [place] tel:[phone] [facility] [place] Anxiety (chief complaint)co allison polyp (chief complaint)ne uropathy (chief complaint) Dietary surveillance and counselingIdiopat hic progressive polyneuropathyAbn ormality of gaitAnal and rectal polypGeneralized anxiety disorder May- 4 Quan Villarreal. [address], [place], [place], [address] , [place]. [phone] Referring Provider: Cleve Dugan [address], [place], [place], [address]. tel:[phone] OFFICE/OUTPA TIENT VISIT, [facility], [address], [place], [place], [id number], [place] [phone] [facility], [place] gait abnormality (chief complaint)to othache (chief complaint) Abnormality of gaitHereditary sensory neuropathyConvers ion disorder Feb- 4 Quan Villarreal. [address], [place], [place], [id number] , [place]. [phone] Referring Provider: Cleve Dugan [address], [place], [place], [id number]. tel:[phone] OFFICE/OUTPA TIENT VISIT, EST [facility], [place], [address], [place], [place], [id number], [place] tel:[phone] [facility], [place] toothache (chief complaint)EG D (chief complaint)am bulation issue (chief complaint) Atypical face painAbnormality of gaitAnal and rectal polypIdiopathic progressive polyneuropathy 4 Quan Villarreal. [address], [place], [place], [address] , [place]. tel:[phone] Referring Provider: Cleve Dugan [facility] [address], [place], [place], [id number]. tel:[phone] OFFICE/OUTPA TIENT VISIT, EST [facility], [place], [address], [place], [place], [address], [place] tel:[phone] [facility], [place] Neuro symptoms (chief complaint)an xiety (chief complaint)GE RD (chief complaint)ly mph node (chief complaint) GERDDietary surveillance and counselingBenign Essential TremorGeneralized anxiety disorderEnlargeme nt of lymph nodes 4 Quan Villarreal. [address] [facility] [address], [place], [place], [address] , [place]. tel:[phone] Referring Provider: Cleve Dugan, [place], [place], [id number]. tel:[phone] PREV VISIT, EST, AGE 18-39 [facility], [place], [address], [place], [place], [address], [place] tel:[phone] [facility], [place] PHysical (chief complaint)ne ck nodule (chief complaint) Dietary surveillance and counselingRoutine Medical ExamBenign Essential TremorMuscle weakness (generalized)GERD Routine Medical Exam 4 Quan Wu [address], [place], [place], [id number] , [place]. tel:[phone] Referring Provider: Cleve Dugan, [place], [place], [id number]. tel:[phone] Family History Family Member Type Diagnosis Age At Onset Mother Problem (finding) parkinson Father Problem (finding) Coronary artery disease 54 Sister Problem (finding) Diabetes mellitus Father Problem (finding) Stroke 52 Father Problem (finding) Diabetes mellitus Sister Problem (finding) leukemia Payers Payer name Insurance type Covered alliance party ID Bree jerome(s) Scott CHRISTENSEN [id number] Social History Type Description Quantity Date Captured Comments Alcohol Use Details Caffeine Use Details Unknown Tobacco Use Status Light cigarette smok er (1-9 cigs/day) Smoking Status Light tobacco smoker Sex Female Vital Signs Date / Time: Height Weight BMI Pulse Rate Blood Pressure Temperature Respiratory Rate Body Surface Area Head Circumference BMI percentile Pulse Ox Inhaled Ox 12:46 PM 63.00 in 185.20 lbs 32.8 1 kg/m eter (2) 71 /min 102/64 mm[Hg] 97.3 F 16 /min Chief Complaint And Reason For Visit From encounter dated '09/09/2024 12:46'. pain (chief complaint). Description: Pt has chronic low back pain ,Pt has neck pain Pt has chronic sciatica and neuropathy, Pt has small fiber neuropathy. Pt takes neurontin as well. Pt takes percocet PRn and doing ok. Pt denies any worsening pain. Pt sees neurology Pt denies any saddle area paresthesia. anxiety1 (chief complaint). Description: Pt has anxiety and depression. Pt takes cymbalta and xanaxand doing ok. , PT denies any suicidal or homicidal thought PT denies any crying spells groin pain1 (chief complaint). Description: Pt c/o acute onset of left groin pain for several weeks. pt went to see ortho and she had negative pelvis and hip x rays. pt was told that she needs to seesurgeon to rule out hernia. Pt has brad with surgeon next week. Pt notices worsening pain recently ,Pt denies any bulge. Plan Of Treatment Date Type Action Status Goal Influenza vaccine. Due on Ap due Goal Td vaccine. Due on 25 due Goal Sigmoidoscopy. Due on due Goal Depression screening. Due on due Goal Lipid panel. Due on due Goal Pap/HPV testing. Due on due Goal FOBT. Due on due Goal Tdap. Due on due Goal FOBT. Due on due Goal Influenza vaccine. Due on due Goal Td vaccine. Due on due Goal Sigmoidoscopy. Due on due Goal Depression screening. Due on due Goal Lipid panel. Due on due Goal Pap/HPV testing. Due on due Goal Tdap. Due on due Goal Tdap. Due on due Goal Pap/HPV testing. Due on due Goal Lipid panel. Due on due Goal Depression screening. Due on due Goal FOBT. Due on due Goal Influenza vaccine. Due on due Goal Td vaccine. Due on due Goal Sigmoidoscopy. Due on due Goal Sigmoidoscopy. Due on due Goal Td vaccine. Due on due Goal Influenza vaccine. Due on due Goal FOBT. Due on due Goal Tdap. Due on due Goal Pap/HPV testing. Due on due Goal Lipid panel. Due on due Goal Depression screening. Due on due Goal Depression screening. Due on due Goal Lipid panel. Due on due Goal Pap/HPV testing. Due on due Goal Td vaccine. Due on due Goal Influenza vaccine. Due on due Goal Tdap. Due on due Goal Tdap. Due on due Goal Influenza vaccine. Due on due Goal Td vaccine. Due on due Goal Depression screening. Due on due Goal Lipid panel. Due on due Goal Pap/HPV testing. Due on due Goal Tdap. Due on due Goal Influenza vaccine. Due on due Goal Td vaccine. Due on due Goal Depression screening. Due on due Goal Lipid panel. Due on due Goal Pap/HPV testing. Due on due Goal Pap/HPV testing. Due on due Goal Lipid panel. Due on due Goal Depression screening. Due on due Goal Tdap. Due on due Goal Influenza vaccine. Due on Oc due Goal Td vaccine. Due on due Goal Pap/HPV testing. Due on due Goal Lipid panel. Due on due Goal Depression screening. Due on due Goal Tdap. Due on due Goal Influenza vaccine. Due on due Goal Td vaccine. Due on due Goal Pap/HPV testing. Due on due Goal Lipid panel. Due on due Goal Depression screening. Due on due Goal Tdap. Due on due Goal Influenza vaccine. Due on due Goal Td vaccine. Due on due Goal Td vaccine. Due on due Goal Influenza vaccine. Due on due Goal Pap/HPV testing. Due on due Goal Lipid panel. Due on due Goal Depression screening. Due on due Goal Tdap. Due on due Goal Tdap. Due on due Goal Depression screening. Due on due Goal Lipid panel. Due on due Goal Pap/HPV testing. Due on due Goal Td vaccine. Due on due Goal Influenza vaccine. Due on due Goal Pap/HPV testing. Due on due Goal Lipid panel. Due on due Goal Depression screening. Due on due Goal Tdap. Due on due Goal Td vaccine. Due on due Goal Influenza vaccine. Due on Ma due Goal Influenza vaccine. Due on Ap due Goal Td vaccine. Due on due Goal Pap/HPV testing. Due on due Goal Lipid panel. Due on due Goal Depression screening. Due on due Goal Tdap. Due on due Goal Td vaccine. Due on due Goal Influenza vaccine. Due on due Goal Pap/HPV testing. Due on due Goal Lipid panel. Due on due Goal Depression screening. Due on due Goal Tdap. Due on due Goal Lipid panel. Due on due Goal Pap/HPV testing. Due on due Goal Influenza vaccine. Due on due Goal Td vaccine. Due on due Goal Tdap. Due on due Goal Depression screening. Due on due Goal Depression screening. Due on due Goal Tdap. Due on due Goal Lipid panel. Due on due Goal Pap/HPV testing. Due on due Goal Influenza vaccine. Due on due Goal Td vaccine. Due on due Goal Td vaccine. Due on due Goal Influenza vaccine. Due on due Goal Depression screening. Due on due Goal Tdap. Due on due Goal Lipid panel. Due on due Goal Pap/HPV testing. Due on due Goal Influenza vaccine. Due on due Goal Td vaccine. Due on due Goal Depression screening. Due on due Goal Tdap. Due on due Goal Lipid panel. Due on due Goal Pap/HPV testing. Due on due Goal Pap/HPV testing. Due on due Goal Lipid panel. Due on due Goal Tdap. Due on due Goal Depression screening. Due on due Goal Influenza vaccine. Due on due Goal Td vaccine. Due on due Goal Td vaccine. Due on due Goal Influenza vaccine. Due on due Goal Pap/HPV testing. Due on due Goal Lipid panel. Due on due Goal Tdap. Due on due Goal Depression screening. Due on due Goal Depression screening. Due on due Goal Tdap. Due on due Goal Td vaccine. Due on due Goal Influenza vaccine. Due on Oc due Goal Pap/HPV testing. Due on due Goal Lipid panel. Due on due Goal Lipid panel. Due on due Goal Pap/HPV testing. Due on due Goal Influenza vaccine. Due on due Goal Td vaccine. Due on due Goal Tdap. Due on due Goal Depression screening. Due on due Goal Td vaccine. Due on due Goal Influenza vaccine. Due on due Goal Pap/HPV testing. Due on due Goal Lipid panel. Due on due Goal Tdap. Due on due Goal Depression screening. Due on due Goal Depression screening. Due on due Goal Tdap. Due on due Goal Td vaccine. Due on due Goal Influenza vaccine. Due on due Goal Pap/HPV testing. Due on due Goal Lipid panel. Due on due Goal Lipid panel. Due on due Goal Pap/HPV testing. Due on due Goal Influenza vaccine. Due on due Goal Td vaccine. Due on due Goal Depression screening. Due on due Goal Tdap. Due on due Goal Tdap. Due on due Goal Depression screening. Due on due Goal Lipid panel. Due on due Goal Pap/HPV testing. Due on due Goal Influenza vaccine. Due on Nj due Goal Td vaccine. Due on due Goal Depression screening. Due on due Goal Lipid panel. Due on due Goal Pap/HPV testing. Due on due Goal Td vaccine. Due on due Goal Influenza vaccine. Due on due Goal Tdap. Due on due Goal Tdap. Due on due Goal Influenza vaccine. Due on due Goal Depression screening. Due on due Goal Lipid panel. Due on due Goal Pap/HPV testing. Due on due Goal Td vaccine. Due on due Goal Td vaccine. Due on due Goal Pap/HPV testing. Due on due Goal Lipid panel. Due on due Goal Depression screening. Due on due Goal Tdap. Due on due Goal Influenza vaccine. Due on due Goal Tdap. Due on due Goal Depression screening. Due on due Goal Lipid panel. Due on due Goal Pap/HPV testing. Due on due Goal Td vaccine. Due on due Goal Influenza vaccine. Due on due Goal Influenza vaccine. Due on due Goal Tdap. Due on due Goal Depression screening. Due on due Goal Lipid panel. Due on due Goal Pap/HPV testing. Due on due Goal Td vaccine. Due on due Goal Td vaccine. Due on due Goal Pap/HPV testing. Due on due Goal Lipid panel. Due on due Goal Depression screening. Due on due Goal Influenza vaccine. Due on due Goal Tdap. Due on due Goal Depression screening. Due on due Goal Lipid panel. Due on due Goal Pap/HPV testing. Due on due Goal Tdap. Due on due Goal Influenza vaccine. Due on due Goal Td vaccine. Due on due Goal Tdap. Due on due Goal Pap/HPV testing. Due on due Goal Lipid panel. Due on due Goal Depression screening. Due on due Goal Influenza vaccine. Due on due Goal Td vaccine. Due on due Goal Td vaccine. Due on due Goal Influenza vaccine. Due on due Goal Tdap. Due on due Goal Pap/HPV testing. Due on due Goal Lipid panel. Due on due Goal Depression screening. Due on due Goal Influenza vaccine. Due on due Goal Td vaccine. Due on due Goal Tdap. Due on due Goal Pap/HPV testing. Due on due Goal Lipid panel. Due on due Goal Depression screening. Due on due Goal Depression screening. Due on due Goal Lipid panel. Due on due Goal Pap/HPV testing. Due on due Goal Influenza vaccine. Due on Ju due Goal Td vaccine. Due on due Goal Tdap. Due on due Goal Tdap. Due on due Goal Td vaccine. Due on due Goal Influenza vaccine. Due on Nj due Goal Depression screening. Due on due Goal Lipid panel. Due on due Goal Pap/HPV testing. Due on due Goal Tdap. Due on due Goal Td vaccine. Due on due Goal Influenza vaccine. Due on due Goal Depression screening. Due on due Goal Lipid panel. Due on due Goal Pap/HPV testing. Due on due Goal Pap/HPV testing. Due on due Goal Lipid panel. Due on due Goal Depression screening. Due on due Goal Tdap. Due on due Goal Td vaccine. Due on due Goal Influenza vaccine. Due on due Goal Influenza vaccine. Due on due Goal Td vaccine. Due on due Goal Pap/HPV testing. Due on due Goal Lipid panel. Due on due Goal Depression screening. Due on due Goal Tdap. Due on due Goal Tdap. Due on due Goal Depression screening. Due on due Goal Lipid panel. Due on due Goal Pap/HPV testing. Due on due Goal Influenza vaccine. Due on due Goal Td vaccine. Due on due Goal Td vaccine. Due on due Goal Influenza vaccine. Due on due Goal Tdap. Due on due Goal Depression screening. Due on due Goal Lipid panel. Due on due Goal Pap/HPV testing. Due on due Goal Pap/HPV testing. Due on due Goal Lipid panel. Due on due Goal Depression screening. Due on due Goal Td vaccine. Due on due Goal Influenza vaccine. Due on due Goal Tdap. Due on due Goal Td vaccine. Due on due Goal Influenza vaccine. Due on due Goal Tdap. Due on due Goal Pap/HPV testing. Due on due Goal Lipid panel. Due on due Goal Depression screening. Due on due Goal Depression screening. Due on due Goal Lipid panel. Due on due Goal Pap/HPV testing. Due on due Goal Td vaccine. Due on due Goal Influenza vaccine. Due on due Goal Tdap. Due on due Goal Pap/HPV testing. Due on due Goal Lipid panel. Due on due Goal Depression screening. Due on due Goal Tdap. Due on due Goal Influenza vaccine. Due on due Goal Td vaccine. Due on due Goal Tdap. Due on due Goal Depression screening. Due on due Goal Lipid panel. Due on due Goal Pap/HPV testing. Due on due Goal Td vaccine. Due on due Goal Influenza vaccine. Due on due Goal Influenza vaccine. Due on due Goal Td vaccine. Due on due Goal Tdap. Due on due Goal Depression screening. Due on due Goal Lipid panel. Due on due Goal Pap/HPV testing. Due on due Goal Pap/HPV testing. Due on due Goal Lipid panel. Due on due Goal Depression screening. Due on due Goal Influenza vaccine. Due on due Goal Tdap. Due on due Goal Td vaccine. Due on due Goal Pap/HPV testing. Due on due Goal Lipid panel. Due on due Goal Depression screening. Due on due Goal Influenza vaccine. Due on due Goal Tdap. Due on due Goal Td vaccine. Due on due Goal Td vaccine. Due on due Goal Tdap. Due on due Goal Influenza vaccine. Due on due Goal Depression screening. Due on due Goal Lipid panel. Due on due Goal Pap/HPV testing. Due on due Goal Td vaccine. Due on due Goal Tdap. Due on due Goal Influenza vaccine. Due on due Goal Depression screening. Due on due Goal Lipid panel. Due on due Goal Pap/HPV testing. Due on due Goal Tdap. Due on due Goal Td vaccine. Due on due Goal Pap/HPV testing. Due on due Goal Lipid panel. Due on due Goal Depression screening. Due on due Goal Influenza vaccine. Due on due Goal Influenza vaccine. Due on due Goal Depression screening. Due on due Goal Lipid panel. Due on due Goal Pap/HPV testing. Due on due Goal Td vaccine. Due on due Goal Tdap. Due on due Goal Tdap. Due on due Goal Td vaccine. Due on due Goal Pap/HPV testing. Due on due Goal Lipid panel. Due on due Goal Depression screening. Due on due Goal Influenza vaccine. Due on due Goal Influenza vaccine. Due on due Goal Depression screening. Due on due Goal Lipid panel. Due on due Goal Pap/HPV testing. Due on due Goal Td vaccine. Due on due Goal Tdap. Due on due Goal Influenza vaccine. Due on due Goal Depression screening. Due on due Goal Lipid panel. Due on due Goal Pap/HPV testing. Due on due Goal Td vaccine. Due on due Goal Tdap. Due on due Goal Influenza vaccine. Due on Oc due Goal Depression screening. Due on due Goal Lipid panel. Due on due Goal Pap/HPV testing. Due on due Goal Td vaccine. Due on due Goal Tdap. Due on due Goal Influenza vaccine. Due on Se due Goal Depression screening. Due on due Goal Lipid panel. Due on due Goal Pap/HPV testing. Due on due Goal Td vaccine. Due on due Goal Tdap. Due on due Goal Influenza vaccine. Due on Se due Goal Depression screening. Due on due Goal Lipid panel. Due on due Goal Pap/HPV testing. Due on due Goal Td vaccine. Due on due Goal Tdap. Due on due Goal Influenza vaccine. Due on due Goal Depression screening. Due on due Goal Lipid panel. Due on due Goal Pap/HPV testing. Due on due Goal Td vaccine. Due on due Goal Tdap. Due on due Goal Tdap. Due on due Goal Td vaccine. Due on due Goal Pap/HPV testing. Due on due Goal Lipid panel. Due on due Goal Influenza vaccine. Due on due Goal Depression screening. Due on due Goal Tdap. Due on due Goal Td vaccine. Due on due Goal Pap/HPV testing. Due on due Goal Lipid panel. Due on due Goal Influenza vaccine. Due on due Goal Depression screening. Due on due Goal Depression screening. Due on due Goal Influenza vaccine. Due on due Goal Lipid panel. Due on due Goal Pap/HPV testing. Due on due Goal Td vaccine. Due on due Goal Tdap. Due on due Goal Depression screening. Due on due Goal Influenza vaccine. Due on due Goal Lipid panel. Due on due Goal Pap/HPV testing. Due on due Goal Td vaccine. Due on due Goal Tdap. Due on due Goal Depression screening. Due on due Goal Influenza vaccine. Due on due Goal Lipid panel. Due on due Goal Pap/HPV testing. Due on due Goal Td vaccine. Due on due Goal Tdap. Due on due Goal Tdap. Due on due Goal Td vaccine. Due on due Goal Pap/HPV testing. Due on due Goal Lipid panel. Due on due Goal Influenza vaccine. Due on due Goal Depression screening. Due on due Goal Tdap. Due on due Goal Td vaccine. Due on due Goal Pap/HPV testing. Due on due Goal Lipid panel. Due on due Goal Influenza vaccine. Due on due Goal Depression screening. Due on due Goal Depression screening. Due on due Goal Influenza vaccine. Due on due Goal Lipid panel. Due on due Goal Pap/HPV testing. Due on due Goal Td vaccine. Due on due Goal Tdap. Due on due Goal Tdap. Due on due Goal Td vaccine. Due on due Goal Pap/HPV testing. Due on due Goal Lipid panel. Due on due Goal Influenza vaccine. Due on due Goal Depression screening. Due on due Goal Tobacco cessation counseling completed Goal Tdap. Due on due Goal Td vaccine. Due on due Goal Pap/HPV testing. Due on due Goal Lipid panel. Due on due Goal Influenza vaccine. Due on due Goal Depression screening. Due on due Goal Special diet education compl eted Goal Tobacco cessation counseling completed Goal Tdap. Due on due Goal Td vaccine. Due on due Goal Pap/HPV testing. Due on due Goal Lipid panel. Due on due Goal Influenza vaccine. Due on due Goal Depression screening. Due on due Goal Special diet education compl eted Goal Tobacco cessation counseling completed Goal Tdap. Due on due Goal Td vaccine. Due on due Goal Pap/HPV testing. Due on due Goal Lipid panel. Due on due Goal Influenza vaccine. Due on due Goal Depression screening. Due on due Goal Special diet education compl eted Goal Tobacco cessation counseling completed Goal Tdap. Due on due Goal Td vaccine. Due on due Goal Pap/HPV testing. Due on due Goal Lipid panel. Due on due Goal Influenza vaccine. Due on due Goal Depression screening. Due on due Goal Special diet education compl eted Goal Tobacco cessation counseling completed Goal Tdap. Due on due Goal Td vaccine. Due on 19 due Goal Pap/HPV testing. Due on due Goal Lipid panel. Due on due Goal Influenza vaccine. Due on due Goal Depression screening. Due on due Goal Tobacco cessation counseling completed Goal Special diet education compl eted Goal Tdap. Due on due Goal Td vaccine. Due on due Goal Pap/HPV testing. Due on due Goal Lipid panel. Due on due Goal Influenza vaccine. Due on due Goal Depression screening. Due on due Goal Tobacco cessation counseling completed Goal Special diet education compl eted Goal Depression screening. Due on due Goal Influenza vaccine. Due on due Goal Lipid panel. Due on due Goal Pap/HPV testing. Due on due Goal Td vaccine. Due on due Goal Tdap. Due on due Goal Tobacco cessation counseling completed Goal Special diet education compl eted Goal Tdap. Due on due Goal Td vaccine. Due on due Goal Pap/HPV testing. Due on due Goal Lipid panel. Due on due Goal Influenza vaccine. Due on due Goal Depression screening. Due on due Goal Tobacco cessation counseling completed Goal Special diet education compl eted Goal Depression screening. Due on due Goal Influenza vaccine. Due on due Goal Lipid panel. Due on 019 due Goal Pap/HPV testing. Due on due Goal Td vaccine. Due on 19 due Goal Tdap. Due on due Goal Tobacco cessation counseling completed Goal Special diet education compl eted Goal Tobacco cessation counseling completed Goal Tobacco cessation counseling completed Goal Tobacco cessation counseling completed Goal Tobacco cessation counseling completed Goal Tobacco cessation counseling completed Referral Ordered: US SOFT TISSUE CHEST ordered Referral Ordered: SLEEP STUDY, ATTENDED ordered Referral Ordered: Pulmonology (related to Palpitations) ordered Referral Ordered: Referrals: Pulmonology. Evaluate and treat ordered Referral Ordered: HEARING TEST, PURE TONE, AIR ordered Referral Ordered: Otolaryngology (related to Sensorineural hearing loss, bilateral) ordered Referral Ordered: Referrals: Otolaryngology. Evaluate and treat ordered Referral Ordered: Claudio Flower -Allopathic & Osteopathic Physicians : Internal Medicine : Endocrinology, Diabetes & Metabolism (related to Osteoporosis) ordered Referral Referred To: Claudio Flower [id number] [facility]
[address], [place] [id number] Ordered: Referrals: Allopathic & Osteopathic Physicians : Internal Medicine : Endocrinology, Diabetes & Metabolism. Claudio Flower. Evaluate and treat ordered Referral Ordered: US VENOUS DOPPLER ordered Referral Ordered: DXA BONE DENSITY, AXIAL ordered Referral Ordered: Cali Leong -[facility]opathic [facility] Osteopathic Physicians : Surgery (related to Pain in right hand) ordered Referral Ordered: Jeremy Rao -Allopathic [facility] Osteopathic Physicians : Internal Medicine : Cardiovascular Disease (related to Chronic pain syndrome) ordered Referral Referred To: Jeremy Rao [address] [place], [place] [id number] Ordered: Referrals: Allopathic & Osteopathic Physicians : Internal Medicine : Cardiovascular Disease. Jeremy Rao. Evaluate and treat ordered Referral Referred To: Cali Leong [address] [place] [id number] Ordered: Referrals: Allopathic & Osteopathic Physicians : Surgery. Cali Leong. Evaluate and treat ordered Referral Ordered: Hematology (related to Pulmonary embolism) ordered Referral Ordered: Referrals: Hematology. Evaluate and treat ordered Referral Ordered: MAMMOGRAM, SCREENING ordered Referral Ordered: CARDIOVASCULAR STRESS TEST ordered Referral Ordered: Neurology (related to Idiopathic progressive polyneuropathy) ordered Referral Ordered: Physical Therapy (related to Idiopathic progressive polyneuropathy) ordered Referral Referred To: Physical Therapy Ordered: Referral: Physical Therapy. ordered Referral Ordered: COLONOSCOPY AND BIOPSY ordered Referral Ordered: Neurology (related to Muscle weakness (generalized)) ordered Referral Ordered: Otolaryngology ordered Referral Ordered: Referral: Otolaryngology. ordered Referral Ordered: MRI BRAIN W/O & W/DYE ordered Referral Ordered: MOTOR NERVE CONDUCTION TEST ordered Referral Ordered: Referral: Neurology. ordered Appointment Bita Kraus BOOKED History Of Present Illness Encounter Date Complaint History Of Prese nt Illness anxiety1 Pt has anxiety a nd depression. Pt takes cymbalta and xanax and doing ok. , PT denies any suicidal or homicidal thought PT denies any crying spells pain Pt has chronic l ow back pain ,Pt has neck pain Pt has chronic sciatica and neuropathy, Pt has small fiber neuropathy. Pt takes neurontin as well. Pt takes percocet PRn and doing ok. Pt denies any worsening pain. Pt sees neurology Pt denies any saddle area paresthesia. groin pain1 Pt c/o acute ons et of left groin pain for several weeks. pt went to see ortho and she had negative pelvis and hip x rays. pt was told that she needs to see surgeon to rule out hernia. Pt has brad with surgeon next week. Pt notices worsening pain recently ,Pt denies any bulge. anxiety1 Pt has anxiety a nd depression. Pt takes cymbalta and xanax and doing ok. , PT denies any suicidal or homicidal thought PT denies any crying spells colon1 pt had EGD and c olonoscopy done which showed benign EGD and benign colon polyp. 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 Pt does notice better sleep when she uses cpap DM Pt has DM pt is on ozempic and amaryl and her glucose 100 She feels constipated with ozempic. pain Pt has chronic l ow back pain ,Pt has neck pain Pt has chronic sciatica and neuropathy, Pt has small fiber neuropathy. Pt takes neurontin as well. Pt takes percocet PRn and doing ok. Pt denies any worsening pain. Pt sees neurology Pt denies any saddle area paresthesia. Pt needs flexeril and Neurontin refilled. anxiety1 Pt has anxiety a nd depression. Pt takes cymbalta and xanax and doing ok. , PT denies any suicidal or homicidal thought PT denies any crying spells pain Pt has chronic l ow back pain ,Pt has neck pain Pt has chronic sciatica and neuropathy, Pt has small fiber neuropathy. Pt takes neurontin as well. Pt takes percocet PRn and doing ok. Pt denies any worsening pain. Pt sees neurology Pt denies any saddle area paresthesia. Pt needs flexeril and Neurontin refilled. knee pain1 Pt c/o left knee pain Pt saw her ortho and she had injection to left knee but did not help Pt will do MRi soon sleep apnea1 Pt has sleep laborer plumbing ea. with nighttime oxygen desaturation Pt has been using APAP. Pt states that she is not used to the breathing yet and she feels very uncomfortable when she breaths out. Pt has tried both facial and nasal masks. osteoporosis1 Pt has osteoporo sis. Pt started fosamax since 4 weeks ago. Pt tolerating fosamax well. Pt denies any bone pain or GI upset . pain Pt has chronic l ow back pain ,Pt has neck pain Pt has chronic sciatica and neuropathy, Pt has small fiber neuropathy. Pt takes neurontin as well. Pt takes percocet PRn and doing ok. Pt denies any worsening pain. Pt sees neurology Pt denies any saddle area paresthesia. Pt needs flexeril and Neurontin refilled. anxiety1 Pt has anxiety a nd depression. Pt takes cymbalta and xanax and doing ok. , PT denies any suicidal or homicidal thought PT denies any crying spells sleep apnea1 Pt has sleep laborer plumbing ea with nocturnal hypoxia. Pt started cpap recently but she is not very comfortable with nasal masks osteoporosis1 Pt has osteoporo sis Pt has not started fosamax yet .Pt is on calcium and d pain Pt has chronic l ow back pain ,Pt has neck pain Pt has chronic sciatica and neuropathy, Pt has small fiber neuropathy. Pt takes neurontin as well. Pt takes percocet PRn and doing ok. Pt denies any worsening pain. Pt sees neurology Pt denies any saddle area paresthesia. Pt needs flexeril and Neurontin refilled. anxiety1 Pt has anxiety a nd depression. Pt takes cymbalta and xanax and doing ok. , PT denies any suicidal or homicidal thought PT denies any crying spells GERD1 Pt has chronic G ERD Pt takes protonix and doing ok Pt has benign EGD osteoporosis1 Pt has osteoporo sis. pt takes calcium and D and she does not want anything for osteoporosis due to potential side effect of fosamax knee pain1 Pt notices acute onset of painful soft cystic mass popiteal fossa of left knee for 3 days. Pt did trip and fall forward one week ago but she denies any knee or leg injury. Pt denies any sob or recent travel or bedrest . Pt c/o base of left index finger pain after the fall Pt denies any bruising or swelling. Pt denies any chest pain or sob. Pt denies any recent travel sleep apnea1 Pt has night jenny e cardiac palpitation with sob. She had sleep study which showed moderate sleep apnea .Pt does have nocturnal hypoxia. 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 Pt takes cymbalta and xanax and doing ok. , PT denies any suicidal or homicidal thought PT denies any crying spells pain Pt has chronic l ow back pain ,Pt has neck pain Pt has chronic sciatica and neuropathy, Pt has small fiber neuropathy. Pt takes neurontin as well. Pt takes percocet PRn and doing ok. Pt denies any worsening pain. Pt sees neurology Pt denies any saddle area paresthesia. chest pain1 Pt has some inte rmittent midsternal chest pain Pt denies any sob. Pt has some palpitation. Pt is seeing manager credit Pt just saw Dr. rao and she will do CTA of chest soon Pt is on xarelto Pt also is wearing loop recorder as well. Pt will do home sleep study soon anxiety1 Pt has anxiety a nd depression. Pt takes cymbalta and xanax and doing ok. , PT denies any suicidal or homicidal thought PT denies any crying spells oxygen1 Pt has multiple oxygen desaturation at night. She has irregular HR and she sees cardiology and she is on metoprolol 25 mg BID now Pt just had benign cardiac echo Pt does feel fatigue sinus pt has chronic s inus congestion and she needs atrovent nasal spray refilled, which does help pain Pt has chronic l ow back pain ,Pt has neck pain Pt has chronic sciatica and neuropathy, Pt has small fiber neuropathy. Pt takes neurontin as well. Pt takes percocet PRn and doing ok. Pt denies any worsening pain. Pt sees neurology Pt denies any saddle area paresthesia. HLP Pt has HLP Pt memo mathew and she needs it refilled Pt denies any myalgia pain Pt has chronic l ow back pain ,Pt has neck pain Pt has chronic sciatica and neuropathy, Pt has small fiber neuropathy. Pt takes neurontin as well. Pt takes percocet PRn and doing ok. Pt denies any worsening pain. Pt sees neurology Pt denies any saddle area paresthesia. tachycardiaa Pt has tachycard ia, especially with physical exertion. Pt has palpitation. Pt feels about to pass out with physical exertion Pt saw cardiology yesterday and she is off metoprolol 25 mg ER and she is on metoprolol 25 mg IR BID now and she is off norvasc. she also did overnight oxygen saturation but result not available yet anxiety1 Pt has anxiety a nd depression. Pt takes cymbalta and xanax and doing ok. , PT denies any suicidal or homicidal thought PT denies any crying spells HTN Pt has HTN pt ta benito norvasc, losartan and metoprolol. Pt needs losartan refilled. Norvasc is discontinued by her manager credit recently her bp is ok pain Pt has chronic l ow back pain ,Pt has neck pain Pt has chronic sciatica and neuropathy, Pt has small fiber neuropathy. Pt takes neurontin as well. Pt takes percocet PRn and doing ok. Pt denies any worsening pain. Pt sees neurology Pt denies any saddle area paresthesia. DM Pt has DM Pt is on ozempic and amaryl and her glucose and A1c are ok pt denies any polyuria, polydipsia. tachycardia1 Pt has HLP Pt memo mathew Pt denies any myalgia anxiety1 Pt has anxiety a nd depression. Pt takes cymbalta and xanax and doing ok. , PT denies any suicidal or homicidal thought PT denies any crying spells tachycardia1 Pt has intermitt ent tachycardia. Pt has loop recorder Pt denies any chest pain Pt has occasional palpitation Pt sees cardiology pt states that she is under a lot of stress and she feels that her HR goes up during stress. Pt also has ? night time oxygen desaturation. pain Pt has chronic l ow back pain ,Pt has neck pain Pt has chronic sciatica and neuropathy, Pt has small fiber neuropathy. Pt takes neurontin as well. Pt takes percocet PRn and doing ok. Pt denies any worsening pain. Pt sees neurology Pt denies any saddle area paresthesia. anxiety1 Pt has anxiety a nd depression. Pt takes cymbalta and xanax and doing ok. , PT denies any suicidal or homicidal thought PT denies any crying spells APS Pt had lab done by hematology and she was diagnosed with antiphospholipid syndrome. Pt does takes xarelto daily and she was told to take indefinitely . pain Pt has chronic l ow back pain ,Pt has neck pain Pt has chronic sciatica and neuropathy, Pt has small fiber neuropathy. Pt takes neurontin as well. Pt takes percocet PRn and doing ok. Pt denies any worsening pain. Pt sees neurology Pt denies any saddle area paresthesia. anxiety1 Pt has anxiety a nd depression. Pt takes cymbalta and xanax and doing ok. , PT denies any suicidal or homicidal thought PT denies any crying spells palpitation1 Pt has intermitt ent cardiac palpitation with some sob for several months Pt states that her HR down to 47 at night an her oxygen level was low at night according to her watch but she is not sure exactly how low. Pt states that cardiology called and told her that her HR was 47 at night while asleep Pt does wear a loop recorder. Pt sometimes feels slightly sob at night. Pt has not made brad with cardiology yet. Pt has not done overnight oxygen yet. Pt denies any acute sob coagulopathy1 Pt has history o f DVT with PE. Pt is on xarelto and she sees hematology. Pt does not have any known coagulopathy disorder. Pt has brad with hematology tomorrow for more lab work palpitation1 Pt has intermitt ent cardiac palpitation with some sob for several months Pt states that her HR down to 47 at night an her oxygen level was low at night according to her watch but she is not sure exactly how low. Pt states that cardiology called and told her that her HR was 47 at night while asleep Pt does wear a loop recorder. Pt sometimes feels slightly sob at night. pain Pt has chronic l ow back pain ,Pt has neck pain Pt has chronic sciatica and neuropathy, Pt has small fiber neuropathy. Pt takes neurontin as well. Pt takes percocet PRn and doing ok. Pt denies any worsening pain. Pt sees neurology Pt denies any saddle area paresthesia. anxiety1 Pt has anxiety a nd depression. Pt takes cymbalta and xanax and doing ok. , PT denies any suicidal or homicidal thought PT denies any crying spells GERD1 Pt has chronic G ERD Pt had benign EGD early this year Pt failed pepcid Pt takes protonix daily and doing ok. pain Pt has chronic l ow back pain ,Pt has neck pain Pt has chronic sciatica and neuropathy, Pt has small fiber neuropathy. Pt takes neurontin as well. Pt takes percocet PRn and doing ok. Pt denies any worsening pain. Pt sees neurology Pt denies any saddle area paresthesia. anxiety1 Pt has anxiety a nd depression. Pt takes cymbalta and xanax and doing ok. , PT denies any suicidal or homicidal thought PT denies any crying spells palpitation1 Pt has been havi ng intermittent chest palpitation with chest pain for several months Pt has loop recorder currently and she saw her manager credit last week regarding above and he will try to obtain the loop recorder strip from online merchandising specialist at [facility]. DM Pt has Dm Pt emily thornton and ambarry. Her glucose is around 100. her A1c is around 5.6 back pain1 Pt has chronic l ow back pain ,Pt has neck pain Pt has chronic sciatica and neuropathy, Pt has small fiber neuropathy. Pt takes neurontin as well. Pt takes percocet PRn and doing ok. Pt denies any worsening pain. Pt sees neurology Pt denies any saddle area paresthesia. UTI1 Pt c/o acute ons et of bilateral low back pain, blood in urine, dysuria, frequency and urgency and low pelvic pressure for 3 days Pt denies any fever, chill Pt denies any nausea, vomiting. Pt denies any rash. Pt took levaquin and symptoms resolved. Pt denies any blood in urine, fever, chill, pelvic pain anxiety1 Pt has anxiety a nd depression. Pt takes cymbalta and xanax and doing ok. , PT denies any suicidal or homicidal thought PT denies any crying spells UTI1 Pt c/o acute ons et of bilateral low back pain, blood in urine, dysuria, frequency and urgency and low pelvic pressure for 3 days Pt denies any fever, chill Pt denies any nausea, vomiting. Pt denies any rash. hearing loss1 Pt had normal ri ght ear hearing study and left ear showed mild high frequency hearing loss but she is not qualified for hearing aid. She was told to try amplifiers DM Pt has DM. pt us es ozempic and amaryl and her A1c is only 5.6 Pt denies any polyuria, polydipsia. HLP Pt takes crestor and her lipid profile is ok. Pt denies any myalgia pain Pt has chronic l ow back pain ,Pt has neck pain Pt has chronic sciatica and neuropathy, Pt has small fiber neuropathy. Pt takes neurontin as well. Pt takes percocet PRn and doing ok. Pt denies any worsening pain. Pt sees neurology Pt denies any saddle area paresthesia. anxiety1 Pt has anxiety a nd depression. Pt takes cymbalta and xanax and doing ok. , PT denies any suicidal or homicidal thought PT denies any crying spells colon polyp1 Pt has familiar polyposis. Pt had EGD and colonoscopy done which was benign last week Pt is on protonix for GERD pain Pt has chronic l ow back pain ,Pt has neck pain Pt has chronic sciatica and neuropathy, Pt has small fiber neuropathy. Pt takes neurontin as well. Pt takes percocet PRn and doing ok. Pt denies any worsening pain. Pt sees neurology Pt denies any saddle area paresthesia. anxiety1 Pt has anxiety a nd depression. Pt takes cymbalta and xanax and doing ok. , PT denies any suicidal or homicidal thought PT denies any crying spells DM Pt has DM. Pt ta kes amaryl and she uses ozempic 0.25 mg SC weekly and she tolerates it well Pt denies any GI symptoms ear pain1 Pt c/o bilateral tinnitus with hearing loss and she notices some left ear pain for several days with some water dripping noise around left ear. Pt denies any drainage. Pt denies any sinus symptoms or sore throat. anxiety1 Pt has anxiety a nd depression. Pt takes cymbalta and xanax and doing ok. , PT denies any suicidal or homicidal thought PT denies any crying spells pain Pt has chronic l ow back pain ,Pt has neck pain Pt has chronic sciatica and neuropathy, Pt has small fiber neuropathy. Pt takes neurontin as well. Pt takes percocet PRn and doing ok. Pt denies any worsening pain. Pt sees neurology Pt denies any saddle area paresthesia. tinnitus1 Pt c/o persisten t bilateral tinnitus with some hearing loss Pt has not had any vertigo episodes recently Pt denies any ear pain or sinus drainage Pt was referred to ENT but they do not take her secondary insurance. pain Pt has chronic l ow back pain ,Pt has neck pain Pt has chronic sciatica and neuropathy, Pt has small fiber neuropathy. Pt takes neurontin as well. Pt takes percocet PRn and doing ok. Pt denies any worsening pain. Pt sees neurology Pt denies any saddle area paresthesia. anxiety1 Pt has anxiety a nd depression. Pt takes cymbalta and xanax and doing ok. , PT denies any suicidal or homicidal thought PT denies any crying spells DM Pt has DM. Pt ta kes neurontin and also ozempic and also amaryl. Pt needs ozempic refilled and also test strips vertigo1 Pt has been have positional vertigo on and off for several months. Pt notices vertigo feeling when she lifts her head or turning her headache sometimes Pt denies any syncope Pt denies any palpitation or chest pain. Pt states that she discussed with her manager credit who recommend ENT referral. Pt c/o feeling bilateral tinnitus with some hearing loss as well recently. or any ear pain or any sinus symptoms. Pt also feels dizzy when she stands up too quick. Pt also feels lightheadedness. pt denies any ear pain.. Pt states that meclizine raised her heart rate. DM Pt has DM pt emily es amaryl and she uses ozempic 0.25 mg SC weekly and doing ok Her glucose is around 105 Pt states that she can not use the freestyle camille since it keeps falling off her arm. osteoporosis1 Pt has osteoporo sis. Pt is noncompliant with endo referral. Pt denies any fracture Pt takes calcium and vitamin D. Pt states that she did some research and she does not want to try fosamax or any infusion therapy due to side effects vertigo1 Pt has been have positional vertigo on and off for several months. Pt notices vertigo feeling when she lifts her head or turning her headache sometimes Pt denies any syncope Pt denies any palpitation or chest pain. Pt states that she discussed with her manager credit who recommend ENT referral. Pt denies any tinnitus or any hearing loss. or any ear pain or any sinus symptoms pain Pt has chronic l ow back pain ,Pt has neck pain Pt has chronic sciatica and neuropathy, Pt has small fiber neuropathy. Pt takes neurontin as well. Pt takes percocet PRn and doing ok. Pt denies any worsening pain. Pt sees neurology Pt denies any saddle area paresthesia. anxiety1 Pt has anxiety a nd depression. Pt takes cymbalta and xanax and doing ok. , PT denies any suicidal or homicidal thought PT denies any crying spells anxiety1 HTN Pt has HTN pt ta kes losartan and her bp is ok Pt denies any chest pain or headache. anxiety1 Pt has anxiety a nd depression. Pt takes cymbalta and xanax and doing ok. , PT denies any suicidal or homicidal thought PT denies any crying spells HLP Pt has HLP Pt ta kes crestor Pt denies any myalgia pain Pt has chronic l ow back pain ,Pt has neck pain Pt has chronic sciatica and neuropathy, Pt has small fiber neuropathy. Pt takes neurontin as well. Pt takes percocet PRn and doing ok. Pt denies any worsening pain. Pt sees neurology Pt denies any saddle area paresthesia. GERD1 Pt has chronic G ERD Pt doing ok with protonix Pt failed pepcid. Pt had benign eGD Pt has daily GERD without protonix DM Pt has DM Pt use s ozempic and she take amaryl and her glucose is around 120s. Pt tolerating ozempic 0.25 mg very well Pt wants free style camille called in for her anxiety1 Pt has anxiety a nd depression. Pt takes cymbalta and xanax and doing ok. , PT denies any suicidal or homicidal thought PT denies any crying spells pain Pt has chronic l ow back pain ,Pt has neck pain Pt has chronic sciatica and neuropathy, Pt has small fiber neuropathy. Pt takes neurontin as well. Pt takes percocet PRn and doing ok. Pt denies any worsening pain. Pt sees neurology Pt denies any saddle area paresthesia. DM Pt has DM. Pt ta kes amaryl and ozempic 0.25 mg SC weekly and she is doing ok. her glucose is around 120s .Pt no longer has any GI side effects from ozempic. Pt denies any nausea, vomiting, bloating, abd pain, constipation, etc anxiety1 Pt has anxiety a nd depression. Pt takes cymbalta and xanax and doing ok. , PT denies any suicidal or homicidal thought PT denies any crying spells pain Pt has chronic l ow back pain ,Pt has neck pain Pt has chronic sciatica and neuropathy, Pt has small fiber neuropathy. Pt takes neurontin as well. Pt takes percocet PRn and doing ok. Pt denies any worsening pain. Pt sees neurology Pt denies any saddle area paresthesia. sinus allergy1 Pt has chronic s inus allergy. Pt doing well with atrovent and flonase nasal spray. Pt denies any sinus drainage or sinus pressure or pain or sore throat pain Pt has chronic l ow back pain ,Pt has neck pain Pt has chronic sciatica and neuropathy, Pt has small fiber neuropathy. Pt takes neurontin as well. Pt takes percocet PRn and doing ok. Pt denies any worsening pain. Pt sees neurology Pt denies any saddle area paresthesia. anxiety1 Pt has anxiety a nd depression. Pt takes cymbalta and xanax and doing ok. , PT denies any suicidal or homicidal thought PT denies any crying spells DM Pt has DM Pt emily es ozempic 1 mg weekly and amaryl .Pt states that her glucose is around 100. Pt states that she has been feeling very nauseated with constipation with ozempic and she also has bloating as well which is very uncomfortable. . pain Pt has chronic l ow back pain ,Pt has neck pain Pt has chronic sciatica and neuropathy, Pt has small fiber neuropathy. Pt takes neurontin as well. Pt takes percocet PRn and doing ok. Pt denies any worsening pain. Pt sees neurology Pt denies any saddle area paresthesia. anxiety1 Pt has anxiety a nd depression. Pt takes cymbalta and xanax and doing ok. , PT denies any suicidal or homicidal thought PT denies any crying spells DM Pt has DM Pt emily es ozempic 1 mg SC weekly and amaryl and her glucose is around 100 Pt tolerating ozempic ok. Pt lost some weight insect bite Pt states that s he was bitten by an insect, possible tick on right hip area several days ago Pt notices mild redness around the area Pt denies any hip pain or fever or drainage fatty liver1 Pt has fatty charla er Pt denies any abd pain or jaundice. pt rarely drinks alcohol pain Pt has chronic l ow back pain ,Pt has neck pain Pt has chronic sciatica and neuropathy, Pt has small fiber neuropathy. Pt takes neurontin as well. Pt takes percocet PRn and doing ok. Pt denies any worsening pain. Pt sees neurology Pt denies any saddle area paresthesia. DM Pt has DM. Pt st arted ozempic last month and her glucose is around 100. pt denies any GI side effects . Pt feels appetite suppression Pt lost some weight. Pt is very happy with ozempic anxiety1 Pt has anxiety a nd depression. Pt takes cymbalta and xanax and doing ok. , PT denies any suicidal or homicidal thought PT denies any crying spells palpitation1 Pt has intermitt ent palpitation with NSVT Pt is on toprol 25 mg daily. pt denies any chest pain Pt will have loop recorder placed soon anxiety1 Pt has anxiety a nd depression. Pt takes cymbalta and xanax and doing ok. , PT denies any suicidal or homicidal thought PT denies any crying spells DM Pt has DM pt sta sruthi that her glucose has been high lately above 200 and sometimes to 300 post meal. Pt is on amaryl and her glucose has been spiking recently osteoporosis1 Pt takes calcium and D and she still is trying to make brad with endo. pain Pt has chronic l ow back pain ,Pt has neck pain Pt has chronic sciatica and neuropathy, Pt has small fiber neuropathy. Pt takes neurontin as well. Pt takes percocet PRn and doing ok. Pt denies any worsening pain. Pt sees neurology Pt denies any saddle area paresthesia. pain Pt has chronic l ow back pain ,Pt has neck pain Pt has chronic sciatica and neuropathy, Pt has small fiber neuropathy. Pt takes neurontin as well. Pt takes percocet PRn and doing ok. Pt denies any worsening pain. Pt sees neurology Pt denies any saddle area paresthesia. pain Pt has anxiety a nd depression. Pt takes cymbalta and xanax and doing ok. , PT denies any suicidal or homicidal thought PT denies any crying spells polyp1 Pt has familiar polyposis s/p total colectomy and she has chronic GERD Pt just had EGD and colonoscopy done which was normal per patient NSVT1 Pt has NSVT and she feels palpitation frequently especially with any physical activity Pt sees cardiology and she had benign holter but manager credit wants to place her with loop recorder but she does not want to do that now Pt is on toprol. Pt denies any chest pain Pt denies any acute symptoms osteoporosis1 Pt has osteoporo sis. Pt takes calcium and D and she still has not seen endo yet. Pt states that endo stating that [place] [facility] [place] [facility] but in fact she does not. Pt has medicaid as secondary. pain Pt has chronic l ow back pain ,Pt has neck pain Pt has chronic sciatica and neuropathy, Pt has small fiber neuropathy. Pt takes neurontin as well. Pt takes percocet PRn and doing ok. Pt denies any worsening pain. Pt sees neurology Pt denies any saddle area paresthesia. anxiety1 Pt has anxiety a nd depression. Pt takes cymbalta and xanax and doing ok. , PT denies any suicidal or homicidal thought PT denies any crying spells GERD1 Pt has chronic G ERD. Pt failed pepcid. Pt had benign EGD last year . pt has daily GERD without protonix osteoporosis1 Pt has osteoporo sis Pt has not heard from endo yet. Pt takes calcium and D and she is working on weight bearing exercise . pain Pt has chronic l ow back pain ,Pt has neck pain Pt has chronic sciatica and neuropathy, Pt has small fiber neuropathy. Pt takes neurontin as well. Pt takes percocet PRn and doing ok. Pt denies any worsening pain. Pt sees neurology Pt denies any saddle area paresthesia. anxiety1 Pt has anxiety a nd depression. Pt takes cymbalta and xanax and doing ok. , PT denies any suicidal or homicidal thought PT denies any crying spells NSVT1 Pt has NSVT with intermittent palpitation Pt is on toprol 25 mg daily ,Pt just saw cardiology and she had CT angiogram of heart at [facility] which was normal two months ago. Pt states that she has not noticed much palpitation since on toprol fatty liver1 Pt has CT eviden ce of fatty liver. Pt denies any abdominal pain or jaundice. anxiety1 Pt has anxiety a nd depression. Pt takes cymbalta and xanax and doing ok. , PT denies any suicidal or homicidal thought PT denies any crying spells pain Pt has chronic l ow back pain ,Pt has neck pain Pt has chronic sciatica and neuropathy, Pt has small fiber neuropathy. Pt takes neurontin as well. Pt takes percocet PRn and doing ok. Pt denies any worsening pain. Pt sees neurology Pt denies any saddle area paresthesia. NSVT1 Pt had one episo de of NSVT recently while wearing the event monitor and she was admitted to [facility] and then transferred to [facility]. Pt underwent EP study and she was started on toprol 12.5 mg ER once per day. Pt has not had any further tachycardia ,Pt did feels palpitation and presyncope during the acute NSVT. Pt denies any chest pain or headache or sob or palpitation since starting toprol pain1 Pt has chronic l ow back pain ,Pt has neck pain Pt has chronic sciatica and neuropathy, Pt has small fiber neuropathy. Pt takes neurontin as well. Pt takes percocet PRn and doing ok. Pt denies any worsening pain. Pt sees neurology Pt denies any saddle area paresthesia. anxiety1 Pt has anxiety a nd depression. Pt takes cymbalta and xanax and doing ok. , PT denies any suicidal or homicidal thought PT denies any crying spells palpitation1 Pt has palpitati on Pt denies any chest pain Pt is seeing cardiology and she wears holter monitor now and she had coronary angiogram which was normal except for HH osteoporosis1 Pt has osteoporo sis. Pt takes calcium and D and she denies any fracture pain Pt has chronic l ow back pain ,Pt has neck pain Pt has chronic sciatica and neuropathy, Pt has small fiber neuropathy. Pt takes neurontin as well. Pt takes percocet PRn and doing ok. Pt denies any worsening pain. Pt sees neurology Pt denies any saddle area paresthesia. anxiety1 Pt has anxiety a nd depression. Pt takes cymbalta and xanax and doing ok. , PT denies any suicidal or homicidal thought PT denies any crying spells chest pain1 Pt has intermitt ent chest pain and palpitation Pt had benign holter. Pt has not seen cardiology for almost one year Pt supposes to have cardiac stress done by she never did. HTN Pt has HTn Pt ta kes norvasc and losartan and her bp is ok Pt denies any chest pain anemia1 Pt no longer has any iron deficiency anemia. Pt did receive iron infusion 6 months ago. Pt had negative EGD and colonoscopy. Pt does have bowel resection headache1 Pt has chronic h eadache with optic nerve neuropathy. Pt has short term memory loss. Pt also has small fiber neuropathy. Pt is seeing neurology and she has brad with new neurology soon. MRI of brain completely normal DM Pt has DM. Pt ta kes amaryl. Pt does eat a lot of sweet. Her A1c is 6.6, which is probably worse. Pt denies any polyuria, polydipsia. Pt does have small fiber neuropathy luekocytosis1 P has borderline high wbc, which is much better than before. Pt is seeing hematology. low D Pt has low D Pt still has not done bone density yet headache1 Pt has chronic h eadache with optic nerve neuropathy. Pt has short term memory loss. Pt also has small fiber neuropathy. Pt is seeing neurology and she has brad with new neurology soon. MRI of brain does not require PA. Pt has not done it yet COVID Pt has COVID las t month Pt is not vaccinated Pt states that she completely recovered. Pt denies any cough or fever or sob. Pt denies any GI issue. pain Pt has chronic l ow back pain ,Pt has neck pain Pt has chronic sciatica and neuropathy, Pt has small fiber neuropathy. Pt takes neurontin as well. Pt takes percocet PRn and doing ok. Pt denies any worsening pain. Pt sees neurology Pt denies any saddle area paresthesia. anxiety1 Pt has anxiety a nd depression. Pt takes cymbalta and xanax and doing ok. , PT denies any suicidal or homicidal thought PT denies any crying spells HTN Pt has HTN pt ta kes norvasc and losartan and he bp has been elevated around 135/80s. Pt is concerned about her bp being high. Pt denies any chest pain COVID19 Pt tested positi ve for COVID-19 one week ago. She started to have symptoms the night before the home testing. Pt has persistent dry cough with chest congestion and she has hard time coughing up the phlegm. pt feels mild sob. Pt denies any fever or chest pain Pt did not get vaccinated for COVID. Pt has albuterol neb at home. Pt denies any hemoptysis. headache1 Pt has chronic h eadache with optic nerve neuropathy. Pt has short term memory loss. Pt also has small fiber neuropathy. Pt is waiting to see new neurologist. pain Pt has chronic l ow back pain ,Pt has neck pain Pt has chronic sciatica and neuropathy, Pt has small fiber neuropathy. Pt takes neurontin as well. Pt takes percocet PRn and doing ok. Pt denies any worsening pain. Pt sees neurology Pt denies any saddle area paresthesia. anxiety1 Pt has anxiety a nd depression. Pt takes cymbalta and xanax and doing ok. , PT denies any suicidal or homicidal thought PT denies any crying spells pain Pt has chronic h eadache with short term memory loss .Pt has small harris neuropathy as well. Pt take neurontin daily. Pt denies any head injury or waking up at night with headache ,Pt has not done MRi yet Pt sees neurology but she could not get it until september pt c/o pressure and throbbing headache. Pt denies any photophobia. Pt denies any acute headache. Pt needs flexeril refilled. anxiety1 Pt has anxiety a nd depression. Pt takes cymbalta and xanax and doing ok. , PT denies any suicidal or homicidal thought PT denies any crying spells headache1 Pt has chronic h eadache Pt c/o short term memory loss. Pt has blurred vision. Pt had eye exam done which showed some neuropathy around optic nerve Pt does have chronic small fiber neuropathy. Pt saw neurologist who referred her to a different neurologist for 2nd opinion. pain Pt has chronic l ow back pain ,Pt has neck pain Pt has chronic sciatica and neuropathy, Pt has small fiber neuropathy. Pt takes neurontin as well. Pt takes percocet PRn and doing ok. Pt denies any worsening pain. Pt sees neurology Pt denies any saddle area paresthesia. anxiety1 Pt has anxiety a nd depression. Pt takes cymbalta and xanax and doing ok. , PT denies any suicidal or homicidal thought PT denies any crying spells pain1 Pt has chronic l ow back pain ,Pt has neck pain Pt has chronic sciatica and neuropathy, Pt has small fiber neuropathy. Pt takes neurontin as well. Pt takes percocet PRn and doing ok. Pt denies any worsening pain. Pt sees neurology Pt denies any saddle area paresthesia. Pt has chronic small fiber neuropathy. Pt also has headache anxiety1 Pt has anxiety a nd depression. Pt takes cymbalta and xanax and doing ok. , PT denies any suicidal or homicidal thought PT denies any crying spells headache1 Pt has chronic h eadache with short term memory loss .Pt has small harris neuropathy as well. Pt take neurontin daily. Pt denies any head injury or waking up at night with headache ,Pt has not done MRi yet Pt sees neurology but she could not get it until september pt c/o pressure and throbbing headache. Pt denies any photophobia. Pt denies any acute headache. Pt has been having intermittent blurred vision with floaters. pt saw research nurse practitioner and had eye exam and she was told that she has signs of MS HLP Pt has HLP Pt memo mathew Pt denies any myalgia. sinus allergy1 Pt has chronic s inus allergy Pt takes flonase and ipratropium and she needs it refilled. Pt states that above nasal spray work well for her sinus symptoms pain Pt has chronic l ow back pain ,Pt has neck pain Pt has chronic sciatica and neuropathy, Pt has small fiber neuropathy. Pt takes neurontin as well. Pt takes percocet PRn and doing ok. Pt denies any worsening pain. Pt sees neurology Pt denies any saddle area paresthesia. physical Pt needs annual physical. pt has anxiety and depression. Pt takes cymbalta and xanax and doing ok. Pt denies any suicidal or homicidal thought Pt denies any crying spells. Pt has chronic small fiber neuropathy. Pt sees neurologist pt takes neurontin. Pt takes xarelto for coagulapathy Pt sees mental health orderly. Pt has HTN Pt takes norvasc and losartan and her bp is ok at home. Pt has chronic GERD Pt takes protonix and doing ok. . Pt has chronic neck pain and back pain Pt takes percocet PRn and doing ok. Pt has DM. Pt takes amaryl and her glucose is around 110s. Pt has chronic headache with short term memory loss. Pt has not done MRI of brain yet anxiety1 Pt has anxiety a nd depression. Pt takes cymbalta and xanax and doing ok. , PT denies any suicidal or homicidal thought PT denies any crying spells pain Pt has chronic l ow back pain ,Pt has neck pain Pt has chronic sciatica and neuropathy, Pt has small fiber neuropathy. Pt takes neurontin as well. Pt takes percocet PRn and doing ok. Pt denies any worsening pain. Pt sees neurology Pt denies any saddle area paresthesia. headache1 Pt has chronic h eadache with short term memory loss .Pt has small harris neuropathy as well. Pt take neurontin daily. Pt denies any head injury or waking up at night with headache ,Pt has not done MRi yet Pt sees neurology but she could not get it until september pt c/o pressure and throbbing headache. Pt denies any photophobia. Pt denies any acute headache polyp1 Pt has familiar polyposis and she underwent colectomy due to above. Pt just had EGD and colonoscopy done which showed colonic ulcer and gastric polyp. Pt is seeing GI Pt wants to know what she should do regarding above finding. Pt does have chronic GERD colon polyp1 Pt has colon lola yposis. Pt is s/p colectomy. Pt has chronic GERD. Pt takes protonix Pt will have EGD and colonoscopy in June again. DM Pt has DM Pt emily es amaryl and her glucose is around 100 at home Pt needs new strip and lancets since she got a new machine. Pt denies any hypoglycemia anxiety1 Pt has anxiety a nd depression. Pt takes cymbalta and xanax and doing ok. , PT denies any suicidal or homicidal thought PT denies any crying spells pain Pt has chronic l ow back pain ,Pt has neck pain Pt has chronic sciatica and neuropathy, Pt has small fiber neuropathy. Pt takes neurontin as well. Pt takes percocet PRn and doing ok. Pt denies any worsening pain. Pt sees neurology Pt denies any saddle area paresthesia. headache1 Pt c/o right karl e pressure headache for 2-3 months. Pt denies any head injury or waking up at night with headache. Pt c/o mild nausea with headache without vomiting Pt denies any photophobia. pt also feels that her memory has been getting worse as well Pt also notices worsening vision recently. Pt does have chronic small fiber neuropathy. Pt called her neurologist but could not get in until next October. Pt feels frequent dizziness. Pt denies any syncope. Pt has not done MRI of brain yet. HLP Pth as HLP Pt ta benito crestor and doing ok Pt denies any myalgia. HTN Pt has HTN Pt memo oliver norvasc and losartan and her bp is around 130/70 at home anxiety1 Pt has anxiety a nd depression. Pt takes cymbalta and xanax and doing ok. , PT denies any suicidal or homicidal thought PT denies any crying spells pain Pt has chronic l ow back pain ,Pt has neck pain Pt has chronic sciatica and neuropathy, Pt has small fiber neuropathy. Pt takes neurontin as well. Pt takes percocet PRn and doing ok. Pt denies any worsening pain. Pt sees neurology headache1 Pt c/o right karl e pressure headache for 6 weeks. Pt denies any head injury or waking up at night with headache. Pt c/o mild nausea with headache without vomiting Pt denies any photophobia. pt also feels that her memory has been getting worse as well Pt also notices worsening vision recently. Pt does have chronic small fiber neuropathy. Pt called her neurologist but could not get in until next October. Pt feels frequent dizziness. Pt denies any syncope. Pt has not done MRI of brain yet. Pt states that she just saw her mental health orderly who told her she may have early dementia. Pt is very scared and worried about the condition. anxiety1 Pt has anxiety a nd depression. Pt takes cymbalta and xanax and doing ok. , PT denies any suicidal or homicidal thought PT denies any crying spells pain Pt has chronic l ow back pain ,Pt has neck pain Pt has chronic sciatica and neuropathy, Pt has small fiber neuropathy. Pt takes neurontin as well. Pt takes percocet PRn and doing ok. Pt denies any worsening pain. Pt sees neurology headache1 Pt c/o right karl e pressure headache for two weeks. Pt denies any head injury or waking up at night with headache. Pt c/o mild nausea with headache without vomiting Pt denies any photophobia. pt also feels that her memory has been getting worse as well Pt also notices worsening vision recently. Pt does have chronic small fiber neuropathy. Pt called her neurologist but could not get in until next October. Pt feels frequent dizziness. Pt denies any syncope HTN Pt has HTN Pt ta kes norvasc ad he bp is around 130/90. Pt denies any chest pain or headache aemia1 Pt has chronic a nemia due to poor absorption from history of colectomy. pt just had lab done by hematology an did not need iron infusion. Her b12 is low so she was started on b12 GERD1 Pt has chronic G ERD Pt takes protonix and doing ok pt denies nausea, vomiting pain Pt has chronic l ow back pain ,Pt has neck pain Pt has chronic sciatica and neuropathy, Pt has small fiber neuropathy. Pt takes neurontin as well. Pt takes percocet PRn and doing ok. Pt denies any worsening pain. Pt sees neurology anxiety Pt has anxiety a nd depression. Pt takes cymbalta and xanax and doing ok. , PT denies any suicidal or homicidal thought PT denies any crying spells pain Pt has chronic l ow back pain ,Pt has neck pain Pt has chronic sciatica and neuropathy, Pt has small fiber neuropathy. Pt takes neurontin as well. Pt takes percocet PRn and doing ok. Pt denies any worsening pain. Pt sees neurology anxiety Pt has anxiety a nd depression. Pt takes cymbalta and xanax and doing ok. , PT denies any suicidal or homicidal thought PT denies any crying spells HLP Pt has HLP. Pt t mahendra mathew and his lipid profile is ok now Pt denies any myalgia DM Pt has DM. Pt memo dunham and her glucose is around 120 at home. Her A1c is much improved Pt denies any hypoglycemia, polyuria, polydipsia. anemia1 Pt has chronic i tiara deficiency anemia due to GI surgery. Pt had iron infusion recently. She is not currently anemic but iron saturation is borderline low. Pt also has mild leukocytosis Pt denies any fever, or illness . pain Pt has chronic l ow back pain ,Pt has neck pain Pt has chronic sciatica and neuropathy, Pt has small fiber neuropathy. Pt takes neurontin as well. Pt takes percocet PRn and doing ok. Pt denies any worsening pain. Pt sees neurology anxitey1 Pt has anxiety a nd depression. Pt takes cymbalta and xanax and doing ok. , PT denies any suicidal or homicidal thought PT denies any crying spells GERD1 Pt has GERD. Pt takes protonix and doing ok Pt denies any weight loss or early satiety, etc. iron deficiency1 Pt has iron def iciency anemia Pt had iron infusion recently. Her iron level was 62 after only one month of ion infusion, which iron was at 108 after the iron infusion. Pt feels cold and urge to eat ice and she is concerned about further dropping of her iron. Pt called hematology but they will not check her iron now and she was told to check in two months. Pt denies any sob. Pt is very concerned about iron level. iron deficiency Pt has chronic iron deficiency anemia. Pt states that her iron level dropped to 65 from 108 since iron infusion 2 months ago. Pt feels cold and urge to eat ice again recently. Pt just saw her mental health orderly and he told her to follow up in 3 months without any further iron infusion. Pt is not comfortable with that decision .Pt thinks that 3 months is too long of a time to wait around and thinks that she may need iron infusion sooner. Pt states that the mental health orderly seems in a hurry and did not explain things well for her SIBO Pt has chronic a bdominal bloating, abd pain, nausea poor appetite. Pt saw her GI recently and was diagnosed with SIBO. Pt is on Xifaxan now for the past 2 weeks by GI which seems causing more overall GI upset. Pt c/o chronic abdominal bloating. Pt also is concerned about side effects of abx. Pt has not noticed much improvement of her GI symptoms lymph node1 Pt has been takmilad ng Xifaxan for SIBO. Pt states that she developed some clear nasal drainage, nasal congestion, postnasal drainage and some neck lymph node while on abx since 3 days ago. Pt is concerned about getting sinus or other infections Pt also has some itchy eyes and sneezing Pt denies any dysphagia, fever, chill, etc. Pt denies any persistent cough SIBO Pt has chronic a bdominal bloating, abd pain, nausea poor appetite. Pt saw her GI recently and was diagnosed with SIBO. Pt is on Xifaxan now for the past 6 days ago by GI which seems causing more overall GI upset. Pt c/o chronic abdominal bloating. pain Pt has chronic l ow back pain ,Pt has neck pain Pt has chronic sciatica and neuropathy, Pt has small fiber neuropathy. Pt takes neurontin as well. Pt takes percocet PRn and doing ok. Pt denies any worsening pain. Pt sees neurology aemia1 Pt has anxiety a nd depression. Pt takes cymbalta and xanax and doing ok. , PT denies any suicidal or homicidal thought PT denies any crying spells anemia1 Pt has iron defi ciency anemia Pt is s/p iron infusion. Pt is seeing hematology and is s/p iron infusion DM Pt has DM Pt emily fiordaliza ambarry and her glucose is around 100. Pt has chronic neuropathy Pt denies any polyuria, ,polydipsia HLP Pt has HLP Pt ta kes crestor and tolerating it ok. Pt denies any myalgia leukocytosis1 Pt has leukocyto sis and iron deficiency anemia. Pt had colectomy due to polyp Pt has absorption issue. Pt just saw hematology and she received iron infusion x 2 Pt feels more energy and overall better. Pt was given lab work to repeat CBC in two weeks by hematology Pt denies any fever anxiety1 Pt has anxiety a nd depression. Pt takes cymbalta and xanax and doing ok. , PT denies any suicidal or homicidal thought PT denies any crying spells HLP Pt has HLP Pt is on crestor .Pt denies any myalgia pain Pt has chronic l ow back pain ,Pt has neck pain Pt has chronic sciatica and neuropathy, Pt has small fiber neuropathy. Pt takes neurontin as well. Pt takes percocet PRn and doing ok. Pt denies any worsening pain. Pt sees neurology anemia1 Pt has iron defi ciency anemia Pt denies any GI blood loss .Pt has history of colectomy due to polyp. Pt denies any blood in urine DM Pt started amary l. Her glucose is around 150s .pt denies any hypoglycemia. pt has proteinuria as well. Pt denies any UTI symptoms. leukocytosis1 Pt has persisten t leukocytosis with low MCV. Her leukocytosis actually improving with lower neutrophile Pt denies any fever, or any illness. Pt has brad with hematology next week leukocytosis1 Pt has leukocyto sis with increase neutrophile. Pt denies any fever, sick, illness, headache, etc .Pt denies using steroid. Her MCV is borderline low. Pt has high platelet. DM Pt is diabetic P t denies any polyuria, polyuria. Pt denies any vision change. Pt states that her glucose has been running close to 200 at home HLP Pt has HLP Pt is not on any diet low D Pt has low D Pt is noncompliant with bone density. Pt denies any fx anxiety1 Pt has anxiety a nd depression. Pt takes cymbalta and xanax and doing ok. , PT denies any suicidal or homicidal thought PT denies any crying spells colon polyp1 Pt has familiar polyposis.. Pt just had EGD and colonoscopy 4 weeks ago and she was told that she has colon polyps as well as one polyp in stomach. Pt states that she had one episode of bright red blood per rectum 5 days ago, which resolved completely. Pt denies any abdominal pain. Pt denies any dizziness. Pt denies any chest pain. Pt was told polyps were non cancerous glucose1 Pt states that h er glucose has been around 200 in the morning recently Pt denies any polyuria polydipsia. Pt has small fiber neuropathy. Pt needs neurontin refilled pain Pt has chronic l ow back pain ,Pt has neck pain Pt has chronic sciatica and neuropathy, Pt has small fiber neuropathy. Pt takes neurontin as well. Pt takes percocet PRn and doing ok. Pt denies any worsening pain. Pt sees neurology nee pain1 Pt c/o chronic r ight knee pain .Pt notices right knee weakness and she sometimes wobbles. Pt states that she had right tibial plateau fracture several years ago. Pt is seeing ortho who ordered a right knee brace and MRI of right knee Pt denies any recent injury ,Pt denies any right knee swelling or redness or warmth Pt denies any calf pain pain Pt has chronic l ow back pain ,Pt has neck pain Pt has chronic sciatica and neuropathy, Pt has small fiber neuropathy. Pt takes neurontin as well. Pt takes percocet PRn and doing ok. Pt denies any worsening pain anxiety Pt has anxiety a nd depression. Pt takes cymbalta and xanax and doing ok. , PT denies any suicidal or homicidal thought PT denies any crying spells pain Pt has chronic l ow back pain ,Pt has neck pain Pt has chronic sciatica and neuropathy, Pt has small fiber neuropathy. Pt takes neurontin as well. Pt takes percocet PRn and doing ok. Pt denies any worsening pain anxiety1 Pt has anxiety a nd depression. Pt takes cymbalta and xanax and doing ok. , PT denies any suicidal or homicidal thought PT denies any crying spells pain Pt has chronic l ow back pain ,Pt has neck pain Pt has chronic sciatica and neuropathy, Pt has small fiber neuropathy. Pt takes neurontin as well. Pt takes percocet PRn and doing ok. Pt denies any worsening pain anxiety Pt has anxiety a nd depression. Pt takes cymbalta and xanax and doing ok. , PT denies any suicidal or homicidal thought PT denies any crying spells GERD Pt has chronic G ERD. Pt takes protonix daily pt denies any abd pain or GERD Pt failed Pepcid. Pt had benign EGD glucose1 Pt states that h er glucose is around 150-180s Pt denies any polyuria ,polydipsia pt deferred metformin in the past Pt denies any hypoglycemia arm pain Additional infor mation: Pt states that left arm pain resolved .Pt had negative venous duplex doppler study. COVID-19 Pt recently was diagnosed with COVID-19. Pt could not tell me who tested her and she also told me health department never called her. Pt denies any fever, chill. cough, sob .Pt feels ok now pain Pt has chronic l ow back pain ,Pt has neck pain Pt has chronic sciatica and neuropathy, Pt has small fiber neuropathy. Pt takes neurontin as well. Pt takes percocet PRn and doing ok. Pt denies any worsening pain arm swelling1 Pt woke up this morning and she feels left arm swelling and some pain all the way from left armpit to her left hand Pt denies any redness or warmth. Pt denies any cold extremity. Pt states that symptoms resolvedly shortly Pt denies any paresthesia or weakness. Pt is back to baseline now anxiety1 Pt has anxiety a nd depression. Pt takes cymbalta and xanax and doing ok. , PT denies any suicidal or homicidal thought PT denies any crying spells COVID-19 Pt was diagnosed with COVID-19 last week. Pt continues to cough with some sob. Pt states that albuterol neb is helping her. Pt denies any fever. Pt states that oxygen sat is around 95 % . pain Pt has chronic l ow back pain ,Pt has neck pain Pt has chronic sciatica and neuropathy, Pt has small fiber neuropathy. Pt takes neurontin as well. Pt takes percocet PRn and doing ok. Pt denies any worsening pain anxiety1 Pt has anxiety a nd depression. Pt takes cymbalta and xanax and doing ok. , PT denies any suicidal or homicidal thought PT denies any crying spells cold sore1 Pt has recurrent oral cold sore. Pt denies any active infection .Pt wants to have some zovirax topical handy to use just in case. COVID-19 Pt c/o mild dry cough, sob, sinus congestion, chest congestion, headache, loss of taste and smell since last week and she just had COVID-19 testing done last week which was negative and she just had another testing done today which was positive. Pt denies any abdominal pain. Pt states that she feels sick overall. Pt feels feverish but she does not have thermometer so she does not know her real temperature. Pt got some coricidin cough and flu but not helping. Pt notices some wheezing pain Pt has chronic l ow back pain ,Pt has neck pain Pt has chronic sciatica and neuropathy, Pt has small fiber neuropathy. Pt takes neurontin as well. Pt takes percocet PRn and doing ok. Pt denies any worsening pain GERD1 Pt has chronic G ERD. PT takes protonix and doing ok Pt has daily GERD without protonix Pt failed pepcid. Pt denies any abd pain. HTN Pt states that s he had benign holter monitor by cardiology recently. . Her bp is around 140/90 at home PT was given norvasc 5 mg by manager credit but she is not taking it Pt is afraid of the side effects like leg swelling . anxiety1 Pt has anxiety a nd depression. Pt takes cymbalta and xanax and doing ok. , PT denies any suicidal or homicidal thought PT denies any crying spells pain Pt has chronic l ow back pain ,Pt has neck pain Pt has chronic sciatica and neuropathy, Pt has small fiber neuropathy. Pt takes neurontin as well. Pt takes percocet PRn and doing ok. Pt denies any worsening pain anxiety1 Pt has anxiety a nd depression. Pt takes cymbalta and xanax and doing ok. , PT denies any suicidal or homicidal thought PT denies any crying spells postmenopausal1 Pt has surgical postmenopausal and she does not take HRT. Pt denies any fracture palpitation1 Pt has intermitt ent palpitation and chest pain. Pt is seeing cardiology, PT told me she had benign holter and she will do stress test soon PT denies any acute symptoms chest pain1 Pt has intermitt ent atypical chest pain. Pt went to see her manager credit and he ordered holter monitor and he started her on norvasc. Pt has not started yet Pt states that she is concerned about the side effects of fluid retention Pt states that she has exertional related palpitation . Pt will do dobutamine stress test as well. PT denies any acute symptoms back pain1 Pt has chronic l ow back pain ,Pt has neck pain pt has chronic sciatica and neuropathy, Pt has small fiber neuropathy. Pt takes neurontin as well. Pt takes percocet PRn and doing ok anxiety1 Pt has anxiety a nd depression Pt has neuropathy .Pt has been taking cymbalta in addition to xanax and she is doing ok, PT denies any suicidal or homicidal thought PT denies any crying spells sinus1 Pt has chronic s inus congestion. Pt states that atrovent nasal spray helps. Pt wants refill back pain1 Pt has chronic l ow back pain ,Pt has neck pain pt has chronic sciatica and neuropathy, Pt has small fiber neuropathy. Pt takes neurontin as well. Pt takes percocet PRn and doing ok neck pain1 Pt c/o acute ons et of left side neck muscle pain radiating down to left upper shoulder for one week Pt denies any injury Pt woke up with the spasm. Pt denies any rash Pt denies any headache. Pt denies any left upper extremity weakness or cold extremity or discoloration sinus allergy1 Pt has chronic s inus allergy ,Pt denies any purulent sinus drainage Pt doing ok with flonase ,Pt feels more easily breathing through her nose anxity1 Pt has anxiety a nd depression Pt has neuropathy .Pt xanax PRn and she still feels anxious and depressed. Pt denies any suicidal or homicidal thought, pt denies any crying spells. Pt is noncompliant with cymbalta. Pt back pain1 Pt has chronic l ow back pain ,Pt has neck pain pt has chronic sciatica and neuropathy, Pt has small fiber neuropathy. Pt takes neurontin COVID Pt was with her niece 11 days ago and she told me her niece was diagnosed positive for COVID-19 9 days ago. Pt states that her niece did not have any symptoms when she was with her niece 11 days ago. Pt denies an fever, chill, coughing or any symptoms. GERD1 Pt has GERd. Pt had benign EGD Pt takes protonix and doing ok Pt failed pepcid. Pt denies any abd pain. Pt c/o mild constipated for several weeks Pt denies any blood in stool anxiety1 Pt has anxiety a nd depression Pt has neuropathy .Pt takes cymbalta and xanax and doing ok. Pt denies any suicidal or homicidal thought, pt denies any crying spells Physical Pt needs annual physical. pt has anxiety and depression pt has been taking cymbalta but she has noticed much improvement of her neuropathy or mood Pt denies any suicidal or homicidal thought Pt denies any crying spells. Pt has neuropathy. Pt sees neurologist pt takes neurontin. Pt takes xarelto for coagulapathy Pt sees mental health orderly. Pt has intermittent chest pain. Pt denies any exertional chest pain .Pt has brad for stress test tomorrow with cardiology. Pt has chronic GERD Pt takes protonix Pt failed zantac and also pepcid. Pt has chronic neck pain and back pain Pt takes percocet PRn and doing ok Pt states that she has been using atrovent nasal spray but she still has some nasal drainage and congestion. Pt denies any sinus pain Pt denies any sore throat. Pt denies any other complaints. Pt is prediabetic. Pt states that her blood glucose tends to run low due to bowel removal and she does not want to take medication for preDM. Pt states that her glucose is around 100 on average pain1 Pt has chronic b ack and neck pain Pt has small fiber neuropathy. Pt sees neurologist and she is on neurontin and also percocet and doing ok Pt denies any loss of bladder control. anxiety1 Pt has chronic a nxiety Pt denies any depression or any suicidal homicidal thought. pt takes xanax PRN. Pt denies any crying spells. 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 Pt states that atrovent nasal spray is working ok. Pt also has sinus allergy and she also is doing ok with atrovent nasal spray. pt failed flonase anxiety1 Pt has chronic a nxiety Pt feels mildly depressed. Pt denies any suicidal or homicidal thought. pt takes xanax PRN. Pt denies any crying spells. Pt is taking cymbalta also Pt has not noticed much improvement of her symptoms GERD1 Pt has chronic G ERD Pt doing ok with protonix Pt failed zantac and pepcid. Pt has daily GERD without protonix pt had benign EGD pain Pt has chronic b ack and neck pain Pt has small fiber neuropathy. Pt takes cymbalta and Neurontin and percocet PRN for pain. Pt denies any worsening pain ,Pt denies any loss of bladder control rectal bleeding1 Pt had one epis ode of rectal bleeding which is bright red, last week. Pt denies any constipation. Pt has not noticed rectal bleeding since her last episode chronic pain1 Pt has chronic b ack and neck pain Pt has small fiber neuropathy pt recently saw her neurologist and her neurontin was doubled up but she feels too drowsy with it so she went back to old dose. Pt states that her pain is not well controlled as well as her neuropathy symptoms anxiety1 Pt has chronic a nxiety Pt denies any depression or any suicidal homicidal thought. pt takes xanax PRN. Pt denies any crying spells hearing loss1 Pt c/o right ear muffling, some clear fluid drainage, sinus congestion, stuffy nose, mild postnasal drainage for one week. Pt denies any fever, chill. Pt denies any coughing chronic pain1 Pth has chronic back and neck pain Pt has DDD. Pt takes percocet PRN for pain and dong ok. Pt denies any worsening pain anxiety1 Pt has anxiety P t denies any depression or any suicidal thought. Pt takes xanax PRn and doing ok. Pt does not want SSRI hand pain1 Pt just saw hand surgeon, pt supposes to get the hand nodule removed. Pt was told by hand surgeon that she should see rheumatology. Pt states that she has some vague joint pain all over body HTN Pt has HTN. Pt d enies any headache. Pt has not had any chest pain chronic pain1 Pt has chronic b ack and neck pain Pt has DDD Pt has small fiber neuropathy. pt is on neurontin and also percocet PRn for pain. Pt had genetic testing done and she missed her brad with neurology last month and she is very concerned about the condition. She brought me a copy of the gene testing which seems all recessive and she does not seem to have any active disease anxiety1 pt has anxiety a nd depression. Pt states that she does not like cymbalta and she is not taking it. GERD1 Pt had benign EG D Pt states that she failed zantac and pepcid and she has GERD daily. Pt needs protonix refilled hand hand nodule1 Pt has painful n odule middle finger and she has brad with hand specialist in two months, pt denies any numbness and weakness. finger pain1 Pt c/o hard nodu le base of right middle finger for long time and she notices more pain lately Pt denies any movement issue Pt denies any injury Pt denies any numbness or weakness anxiety1 Pt has chronic a nxiety pt denies any depression or any suicidal thought, pt takes xanax PRn. Pt tried cymbalta for only one week and she stopped it due to mild headache. neuropathy1 Pt has small fib er neuropathy chronically pt is on neurontin. pt is seeing [facility] neurology. Pt denies any worsening symptoms chest pain1 Pt c/o sharp rec urrent left side chest pain for 2-3 weeks Pt has history of similar chest pain s/p negative work up 2-3 years ago Pt denies any sob. Pt denies any exertional chest pain. Pt denies any diaphoresis or nausea, vomiting, etc. chronic pain1 Pt has chronic b ack and neck pain Pt has DDD Pt has small fiber neuropathy. Pt had MRI of C and L spine done which showed DDD and also L4/5 spinal stenosis, Pt has chronic sciatica and also leg weakness, Pt ambulates with walker Pt takes percocet and neurontin. Pt sees neurology anxiety1 Pt has chronic a nxiety pt denies any depression or any suicidal thought. Pt denies any crying spells. Pt takes xanax PRN ad she still feels anxious coaguloapathy1 Pt is off coumad in Pt is on xarelto now Pt denies any bleeding neuropathy1 Pt has diffuse s mall fiber neuropathy. Pt has diffuse paresthesia hand and leg. Pt just had small fiber neuropathy and she has some positive antibody and her neurologist is considering IVIG? Pt is on neurontin. Pt has chronic leg weakness. Pt ambulates with walker anxiety1 Pt has chronic a nxiety pt denies any depression or any suicidal thought, Pt denies any crying spells coagulopathy1 Pt has been on c oumadin for coagulopathy. Pt is seeing hematology and is being worked up for coagulopathy. her INR was 3.7 last month and she was told by hematology to hold coumadin for the endoscopy and restarted afterward and her INR was 1.7 last week at hematology office and she is off coumadin now and she is on xarelto 20 mg now per hematology. Pt denies any bleeding back pain1 Pt has chronic b ack and neck pain Pt had MRI of lumbar and Cervical spine done by neurology which showed a lot of DDD per patient Pt does have sciatica and chronic neuropathy symptoms pt is on percocet and neurontin currently. Pt sees neurology GERD1 Pt had benign EG D but she has daily GERD without protonix pt failed zantac polyp1 Pt recently had EGD and colonoscopy done which showed patent end to end ileo-colonic anastomosis with two 4 mm polyps at the recto sigmoid colon. Pt was told the polyps are hyperplastic. Pt had benign EGD. Pt has daily GERD and she was told to continue protonix hypoglycemia1 Pt states that h er BG sometimes bottoms out to around 70s. Pt had colectomy due to multiple polyps coagulopathy1 Pt has chronic c oagulopathy with history of DVT and PE. Pt is on coumadin her INR is 3.1 recently Pt just seen hematology and is being worked up for coagulopathy neuorpathy1 Pt has small fib er neuropathy and she is on neurontin. Pt is seeing neurology pt will have EMG and also MRI of cervical and lumbar in two week by neurology vein1 Pt notices recur rent some swelling veins superficially with mild itching both leg Pt denies any calf pain Pt denies any redness or warmth anxiety1 Pt has anxiety w ithout depression Pt denies any suicidal or homicidal thought. Pt failed multiple SSRIs in the past. Pt takes xanax PRn and doing ok. neuropathy1 Pt has small fib er neuropathy with chronic pain Pt sees neurology and she is getting MRi of L and C spine done. soon. Pt has chronic back pian with neuropathy GERD1 Pt has chronic G ERD with familial polyposis s/p large bowel colectomy. Pt takes protonix. Pt will do EGD and colonoscopy soon gerd1 Pt has GERD Pt t akes protonix daily pt sees GI and she will do EGD and colonoscopy soon. Pt had EGD 1.5 years ago which was benign per patient. Pt failed zantac Pt has daily GERD without protonix anxiety1 Pt has chronic a nxiety pt denies any depression or any suicidal thought ,pt failed SSRis. Pt takes xanax PRn and doing ok. coaguloapthy1 Pt has coagulopa thy. pt has history of PE and DVT Pt is on 6 mg coumadin all week except for thursday, which she takes 3 mg. INR was ok recently Pt denies any bleeding chronic pain1 Pt has chronic b ack pain with small fiber neuropathy . Pt has not done MRI of C and L spine yet or EMG due to insurance issue. Pt just got insurance fixed and she will try to get it done. Pt also has not seen hematology yet. Pt had to reschedule due to insurance issue chronic pain1 Pt has chronic d iffuse muscle pain and low back pain. Pt has sciatica and leg numbness. Pt has chronic idiopathic small fiber neuropathy Pt has diffuse muscle spasm. Pt sees neurology. Pt was just at neurology office yesterday and she will do MRI of neck and back and also repeat EMG and also lab work. Pt was told that she has autoimmune disease but she is not sure what. 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 Pt tried propranolol but did not work. Pt just seen neurology yesterday and was told to hold off propranolol for now. Pt had normal MRi brain 3-4 years ago per pt from neurology. pt was told that she does NOT have parkinson disease. coagulopathy1 P[t has coagulop athy with PE. Pt is on coumadin Pt has mid lymphocytosis pt has rbad with hematology next week anxiety1 Pt has chronic a nxiety pt denies any depression or any suicidal thought Pt denies any crying spells. tremor1 Pt has chronic d iffuse tremor. Pt c/o worsening tremor during last two weeks. Pt has severe small fiber neuropathy. [facility] Pt is on neurontin. pt feels that her tremor and overall shaking has been worse during last two weeks. Pt does not have diagnosis of parkinson disease. PE Pt has history o f DVT and PE. Pt is on coumadin. Her INR is 2.8. Pt denies any bleeding Pt will see hematology soon. Pt also has mildly elevated Lymph anxiety1 Pt has chronic a nxiety Pt denies any depression or any suicidal thought Pt denies any crying spells. Pt failed ssris HLP Pt has HLP Pt is not on any diet PreDM Pt is prediabeti c Pt denies any polyuria, polyuria. PHysical Pt needs annual physical. Pt has multiple medical condition. Pt has chronic severe small fiber neuropathy with pain. Pt sees neurology. Pt takes neurontin. Pt failed cymbalta. Pt has chronic anxiety. Pt denies any depression or any suicidal thought. Pt is off lexapro. Pt is on xanax TID from previous MD. Pt had completely colectomy due to familial polyposis. Pt has small bowel connecting to the rectum. Pt does not have any colostomy bag. Pt has chronic low back pain and also neuropathy pain. Pt takes percocet for pain. Pt states that her BG has been running low for unknown reason. She checked her BG several times per day and sometimes BG is around 60s and sometimes she has to drink OJ. Pt has genital herpes. Pt supposes to take valtrex daily but she does not. pt has not had any breakout for several years. Pt also has history of PE with DVT post op. Pt states that she did develop PE shortly after her surgery. Pt is on coumadin long-term. Pt never had coagulopathy work up. Pt also has chronic GERD and she takes protonix daily. Pt denies any abdominal pain. Pt denies any sob or chest pain Instructions Date Instruction Additional Infor teeion Special diet education Related t o Body mass index (BMI) 35.0-35.9, adult Quit smoking Related to Idiop athic progressive neuropathy Special diet education Related t o Body mass index (BMI) 35.0-35.9, adult Increase physical activity Relat ed to Chronic pain syndrome Weight management Related to Chr onic pain syndrome Special diet education Related t o Body mass index (BMI) 31.0-31.9, adult Increase physical activity Relat ed to Idiopathic progressive neuropathy Weight management Related to Idi opathic progressive neuropathy Special diet education Related t o Body mass index (BMI) 29.0-29.9, adult Quit smoking Related to Pulmo nary embolism Special diet education Related t o Body mass index (BMI) 29.0-29.9, adult Follow the prescribed diet. Rela martina to Venous insufficiency Special diet education Related t o Body mass index (BMI) 29.0-29.9, adult Avoid provocative fo ods: citrus, alcohol, coffee, chocolate, mints. Related to GERD w/o esophagitis Eat smaller meals, n o eating three hours prior to bedtime. Related to GERD w/o esophagitis Elevate head of bed prior to sle ep. Related to GERD w/o esophagitis Increase physical activity Relat ed to Generalized Anxiety Disorder Weight management Related to Gen eralized Anxiety Disorder Special diet education Related t o Body mass index (BMI) 29.0-29.9, adult Special diet education Related t o Body mass index (BMI) 30.0-30.9, adult Stop smoking. Related to Hyper lipidemia Follow a low sodium diet. Relate d to Hyperlipidemia Special diet education Related t o Body mass index (BMI) 30.0-30.9, adult Increase physical activity Relat ed to Encounter for general adult medical exam w abnormal findings Quit smoking Related to Encou nter for general adult medical exam w abnormal findings Diet and exercise Related to Enc ounter for general adult medical exam w abnormal findings Dietary counseling Related to Di etary surveillance counseling Decrease caloric intake Related to Dietary surveillance counseling Dietary counseling Related to Di etary surveillance counseling Decrease caloric intake Related to Dietary surveillance counseling Dietary counseling Related to Di etary surveillance counseling Decrease caloric intake Related to Dietary surveillance counseling Assessments Type Assessment Date assessment Lower abdominal pain assessment Chronic pain syndrome assessment Generalized Anxiety Disorder Sep Mental Status Date Cognitive Assessment Orientation - [place] ed to time, place, person, situation.
--- OUTSIDE RECORDS SUMMARY | 2024-09-09 15:51 | XMS_ITS | Clinical Summary ---
Author Organization [facility] Address [address], [facility] [address] [place] [address] Phone Care Team Providers Care Java Oracle Developer Name Role Phone Blaze Haley MD Primary Care Provider Allergies Active Allergy Reactions Criticality Noted Date Comments Amoxicillin-Pot Clavulanate Diarrhea 12/15/2018 Iodinated Contrast Media Unknown 09/30/2018 Hydromorphone Other (see Comments) 12/15/2018 Hypoten Other reaction(s): Tachycardia Iodinated Casein Unknown 09/30/2018 Morphine Rash 09/30/2018 Other-Environmental Allergen (Not Found In Search) Rash 10/17/2020 Adhesive Potassium Rash Medium 07/03/2020 Tramadol Unknown 09/30/2018 Yellow Dye Rash Medium 05/09/2014 Medications cyclobenzaprine (FLEXERIL) 10 MG Tablet Take 10 mg by mouth 3 times daily as needed. Active Docusate Sodium 100 MG/5ML Enema 100 mg. 5 Active Psyllium 100 % Powder 5 Active acyclovir (ZOVIRAX) 5 % Ointment 9 Active ALPRAZolam (XANAX) 0.5 MG Tablet 0 9 Active gabapentin (NEURONTIN) 300 MG Capsule One capsule by mouth three times daily. 5 Active lidocaine (XYLOCAINE) 5 % Ointment 8 Active Menthol-Zinc Oxide 0.44-20.6 % Ointment Apply. Active oxyCODONE-Acetam inophen (PERCOCET) 10-325 MG Tablet 0 9 Active pantoprazole (PROTONIX) 40 MG Tablet Delayed Response 9 Active albuterol (PROVENTIL, VENTOLIN) (2.5 MG/3ML) 0.083% Nebulizer Soln 0 Active fluticasone (FLONASE) 50 MCG/ACT Suspension 1 [place] by Nasal route. 0 Active glimepiride (AMARYL) 2 MG Tablet 1 Active ipratropium (ATROVENT) 0.06 % Solution ipratropium bromide 42 mcg (0.06 %) nasal spray 0 Active rosuvastatin (CRESTOR) 10 MG Tablet 1 Active losartan (COZAAR) 25 MG Tablet Take 25 mg by mouth daily. Active folic acid (FOLVITE) 1 MG TabletIndication s:Iron deficiency anemia, unspecified iron deficiency anemia type TAKE ONE TABLET ONCE DAILY. 30 Tablet 2 Active Ascorbic Acid 500 MG Chewable Tablet Take 1 Tablet by mouth. Active Calcium-Cholecal ciferol 200-6.25 MG-MCG Tablet Take 1 Tablet by mouth daily. Active ergocalciferol (VITAMIN D) 93455 UNIT Capsule 3 Active Ozempic, 0.25 or 0.5 MG/DOSE, 2 MG/1.5ML Solution Pen-injector 3 Active magnesium oxide (MAG-OX) 400 (240 Mg) MG Tablet 3 Active oxyCODONE-Acetam inophen (Percocet) 10-325 MG Tablet Take 1 Tablet by mouth. 5 Active Cymbalta [address] Particles Take 1 Capsule by mouth daily. 4 Active Glucose Blood (OneTouch Verio) Strip 4 Active ONE TOUCH ULTRASOFT LANCETS Misc 4 Active metoprolol tartrate (LOPRESSOR) 25 MG Tablet Take 25 mg by mouth 2 times daily. 4 Active Xarelto 20 MG TabletIndication s:PE (pulmonary thromboembolism) (HCC) Take 1 tablet by mouth once daily with food 90 Tablet Active Active Problems Problem Noted Date Diagnosed Date Elevated blood pressure reading 06/20/2024 HTN (hypertension) 06/20/2024 Vitamin D deficiency 08/02/2021 Weakness 08/02/2021 Nicotine dependence with current use 08/02/2021 PE (pulmonary thromboembolism) 05/01/2021 Iron deficiency anemia 09/05/2020 Encounters Date Type Department Care Team Description 07/11/2024 Telephone [facility] [address] [phone] Blaze Haley MD Canopy Call / U/S results 07/06/2024 Telephone [facility] [address] [phone] Blaze Haley MD 06/27/2024 Telephone [facility] [address] [phone] Radha Asencio, PERFORMANCE CONSULTANT, MEDICAL LANGUAGE SPECIALIST 06/26/2024 Refill [facility] [address] [phone] Blaze Haley MD Medication Refill 06/20/2024 9:45 AM HAIR DRESSER Office Visit [facility] [address] [phone] Radha Asencio, PERFORMANCE CONSULTANT, MEDICAL LANGUAGE SPECIALIST Pain of left lower extremity (Primary Dx); PE (pulmonary thromboembolism) (HCC); Iron deficiency anemia, unspecified iron deficiency anemia type 06/20/2024 9:20 AM HAIR DRESSER Lab [facility] [address] [phone] Lab, [facility] Iron deficiency anemia, unspecified iron deficiency anemia type 06/20/2024 Travel from Last 3 Months Immunizations Immunization Administration Dates Next Due Influenza Vaccine, Quadrivalent, PF 05/16/2020 Influenza, Injectable, Mdck, quadrivalent,with Preservative 05/07/2019 Influenza, Seasonal, Injectable, Undefined 07/03 Family History Medical History Relation Name Comments Coronary Artery Disease Father Diabetes Father Stroke Father Parkinsonism Mother Diabetes Sister Leukemia/Lymphoma Sister Relation Name Status Comments Father Mother Sister Social History Tobacco Use Types Packs/Day Years Used Date Smoking Tobacco: Former Cigarettes 0.5 31.3 S tarted: 1993 Smokeless Tobacco: Current Tobacco Cessation:Ready to Q uit: Not Asked; Counseling Given: Not Answered Alcohol Use Standard Drinks/Week Comments Yes 0 [...] Orientation Straight 08/30/2023 9: 10 PM CDT Last Filed Vital Signs Vital Sign Reading Time Taken Comments Blood Pressure 128/84 06/20/2024 11:11 AM HAIR DRESSER Pulse 69 06/20/2024 11:11 AM HAIR DRESSER Temperature 36.8 C (98.2 F) 06/20/2024 11:11 AM HAIR DRESSER Respiratory Rate 18 06/20/2024 11:11 AM HAIR DRESSER Oxygen Saturation 98% 06/20/2024 11:11 AM HAIR DRESSER Inhaled Oxygen Concentration - - Weight 84.8 kg (187 lb) 06/20/2024 11:11 AM HAIR DRESSER Height 157.5 cm (5' 2 ) 06/20/2024 11:11 AM HAIR DRESSER Body Mass Index 34.2 06/20/2024 11:11 AM HAIR DRESSER Plan of Treatment Upcoming Encounters Date Type Department Care Team (Late st Contact Info) Description 12/19/2024 10:30 AM CDT Lab [facility] [address] [phone] Blaze Haley MD [address] [place] [phone] Traci Sinclair [facility] 12/19/2024 10:45 AM CDT Office Visit [facility] [address] [phone] Blaze Haley MD [address] [place] [address] [place] [phone] Health Maintenance Due Date Last Done Comments Hepatitis C Virus (HCV) Screening 1974 TdaP Immunization 1974 Hepatitis B Immunization (1 of 3 - 19+ 3-dose series) 1993 Colonoscopy 2019 Colorectal Cancer Screening 2019 Influenza Immunization (#1) 02/07/202402/2020, 05/07/2019, 07/03/2017 SARS-COV-2 Immunization ( season) 2024 Cologuard 2024 Immunochemical Fecal Occult Blood 2024 Pneumococcal Immunization (50+ years) (1 of 1 - PCV) 2024 Zoster Immunization (1 of 2) 2024 Mammogram 10/07/2024 10/08/2023, 08/2022, 04/25/2021, Additional history exists Respiratory Syncytial Virus (RSV) Immunization (Adult) (1 - 1-dose 75+ series) 2049 Discussion re Starting/Frequency of Mammograms Discontinued 10/08/2023, 08/08/2022, 04/25/2021, Additional history exists Meningococcal Immunization (ACWY) Aged Out No longer eligible based on patient's age to complete this topic Rotavirus Immunization Aged Out No lo nger eligible based on patient's age to complete this topic Procedures Procedure Name Priority Date/Time Associated Diagnosis Comments CBC WITH AUTO DIFF OH Routine 06/20/2024 10:38 AM HAIR DRESSER CMP (COMPREHENSIVE METABOLIC PANEL) Routine 06/20/2024 10:38 AM HAIR DRESSER Iron deficiency anemia, unspecified iron deficiency anemia type VITAMIN B12 Routine 06/20/2024 10:38 AM HAIR DRESSER Iron deficiency anemia, unspecified iron deficiency anemia type FOLIC ACID (FOLATE) Routine 06/20/2024 1 0:38 AM HAIR DRESSER Iron deficiency anemia, unspecified iron deficiency anemia type FERRITIN Routine 06/20/2024 10:38 AM HAIR DRESSER Iron deficiency anemia, unspecified iron deficiency anemia type IRON W/ IRON BINDING CAPACITY OH Routine 06/20/2024 10:38 AM HAIR DRESSER Iron deficiency anemia, unspecified iron deficiency anemia type from Last 3 Months Results * (ABNORMAL) IRON W/ IRON BINDING CAPACITY OH (06/20/2024 10:38 AM HAIR DRESSER) IRON 69 50 - 212 ug/dL [facility] UIBC 297 155 - 355 ug/dL [facility]EMENT [facility] TIBC 366 261 - 478 ug/dl [facility]EMENT [facility] % Saturation 19(L) 20 - 50 % [facility] 06/20/2024 10:3 8 AM HAIR DRESSER Narrative [facility] - 06/22/2024 11:52 AM HAIR DRESSER Release to patient->Immediate Susan Gonzales APRN, MEDICAL LANGUAGE SPECIALIST LAB SEND OUTS Final Result [facility] PLACEMENT [facility] [address] [place] [address], * CBC WITH AUTO DIFF OH (06/20/2024 10:38 AM HAIR DRESSER) WBC 9.4 4.0 - 10.0 10*3/uL [facility]ACEMENT [facility] HGB 13.7 11.2 - 15.7 g/dL [facility]IENT PLACEMENT [facility] HCT 41.6 34.1 - 44.9 % [facility] PATIENT PLACEMENT [facility] PLT 238 163 - 369 10*3/uL [facility] PLACEMENT [facility] MPV 10.0 9.4 - 12.4 fL [facility]ACEMENT [facility] RBC 4.50 3.93 - 5.22 10*6/uL [facility] PATIENT PLACEMENT COORDIN[facility] MCV 92 79 - 95 fL [facility] MCH 30.4 25.6 - 32.2 pg [facility] PATIENT PLACEMENT COORDIN[facility] MCHC 32.9 32.2 - 36.5 g/dL [facility]IENT PLACEMENT COORDIN[facility] RDW 13.2 11.6 - 14.4 % [facility]ACEMENT [facility] Neutrophils % 60.4 36.0 - 66.0 % [facility]ACEMENT [facility] Lymphocytes % 32.9 19.0 - 40.0 % [facility]ACEMENT [facility] Monocytes % 5.2 4.1 - 12.1 % [facility]EMENT [facility] Eosinophils % 0.9 0.0 - 3.5 % [facility]ACEMENT [facility] Basophils % 0.2 0.0 - 1.0 % [facility]IENT PLACEMENT [facility] Absolute Neutrophils 5.7 1.4 - 6.6 10*3/uL [facility]EMENT [facility] Absolute Lymphocytes 3.1 0.8 - 4.0 10*3/uL [facility]IENT PLACEMENT [facility] Absolute Monocytes 0.5 0.2 - 1.2 10*3/uL [facility] PATIENT PLACEMENT [facility] Absolute Eosinophils 0.1 0.0 - 0.4 10*3/uL [facility]IENT PLACEMENT [facility] Absolute Basophils 0.0 0.0 - 0.1 10*3/uL [facility]ACEMENT [facility] 06/20/2024 10:3 8 AM HAIR DRESSER us Susan Gonzales APRN, MEDICAL LANGUAGE SPECIALIST LAB SEND OUTS Final Result [facility] PATIENT PLACEMENT CO[facility]IN[facility] [address] [place] [address], [place] [phone] * VITAMIN B12 (06/20/2024 10:38 AM HAIR DRESSER) Vitamin B12 404 180 - 914 pg/mL [facility]ACEMENT [facility] Blood 06/20/2024 10:3 8 AM HAIR DRESSER Narrative [facility] - 06/21/2024 3:00 PM HAIR DRESSER Release to patient->Immediate us Susan Gonzales PERFORMANCE CONSULTANT, MEDICAL LANGUAGE SPECIALIST CHEMISTRY ORDERABLES Final Result [facility]IENT PLACEMENT [facility] [address] [place] [address], [place] [phone] * FOLIC ACID (FOLATE) (06/20/2024 10:38 AM HAIR DRESSER) Folate 8.46 >=5.90 ng/mL [facility] Blood 06/20/2024 10:3 8 AM HAIR DRESSER Narrative [facility] - 06/21/2024 3:00 PM HAIR DRESSER Release to patient->Immediate IS THE PATIENT REQUIRED TO BE FASTING FOR 12 HOURS?->No us Susan Gonzales APRN, MEDICAL LANGUAGE SPECIALIST CHEMISTRY ORDERABLES Final Result Performing Organization Address [facility]/ZIP Co de Phone Number [facility] [place] [address], [place] [phone] * FERRITIN (06/20/2024 10:38 AM HAIR DRESSER) Ferritin 40 11 - 307 ng/mL [facility] Blood 06/20/2024 10:3 8 AM HAIR DRESSER Narrative [facility] - 06/21/2024 3:00 PM HAIR DRESSER Release to patient->Immediate us Susan Gonzales APRN, MEDICAL LANGUAGE SPECIALIST CHEMISTRY ORDERABLES Final Result Performing Organization Address [facility] Co de Phone Number [facility] Cancer [facility] [address] [address], [place] [phone] * (ABNORMAL) CMP (COMPREHENSIVE METABOLIC PANEL) (06/20/2024 10:38 AM HAIR DRESSER) Glucose 181(H) 70 - 105 mg/dL [facility] Blood Urea Nitrogen 7 7 - 25 mg/dL [facility] Creatinine 1.0 0.6 - 1.2 mg/dL [facility] Sodium 139 136 - 145 mEq/L [facility] Potassium 4.7 3.5 - 5.1 mEq/L [facility] Chloride 103 98 - 107 mEq/L [facility] Bicarbonate 29 21 - 31 mEq/L [facility] Total Bilirubin 0.3 0.3 - 1.0 mg/dL [facility] Alk. Phosphatase 76 34 - 104 U/L [facility] Aspartate Aminotransferase 30 13 - 39 U/L [facility] Alanine Aminotransferase 38 7 - 52 U/L [facility] Total Protein 7.2 6.4 - 8.9 g/dL [facility] Albumin 4.7 3.5 - 5.7 g/dL [facility] Calcium 9.9 8.6 - 10.3 mg/dL [facility] Anion Gap 11.7 7.0 - 15.0 mEq/L [facility] Globulin 2.5 2.0 - 3.5 g/dL [facility] PATIENT PLACEMENT COORDINATOR [facility] EGFR 69 >60 ml/min/1. 73m2 [facility] Comment: This eGFR is calculated using 2020 CKD-EPI Creatinine equation without race modifier based on the NKF-ASN task force recommendations Blood 06/20/2024 10:3 8 AM HAIR DRESSER Narrative [facility]ACEMENT [facility] - 06/22/2024 11:52 AM HAIR DRESSER Release to patient->Immediate IS THE PATIENT REQUIRED TO BE FASTING FOR 8 HOURS?->No Susan Gonzales APRN, MEDICAL LANGUAGE SPECIALIST CHEMISTRY ORDERABLES Final Result [facility]IENT PLACEMENT [facility] [address] [place] [address], from Last 3 Months Insurance MEDICAID [place] [employer] Care Teams Java Oracle Developer Relationship Specialty Start Date End Date Blaze Haley MD [address] [place] [phone] PCP - General Oncology 11/14/20
--- OUTSIDE RECORDS SUMMARY | 2024-09-09 15:51 | XMS_ITS | Encounter Summary ---
Author Organization [facility] Address [address] [place] [address] Phone Care Team Providers Care Pharmacy Picking Tech Name Role Phone Blaze Haley MD Primary Care Provider [phone] Reason for Visit * Reason Comments Medication Refill Encounter Details Date Type Department Care Team (Late st Contact Info) Description 12/17/2022 Refill [facility] [address] [phone] Phyllis Martin, [place] Medication Refill [...] Telephone Encounter - Renee Martin RN - 12/17/2022 4:31 PM CDT Refill request from pharmacy. Please fill if appropriate. documented in this encounter Plan of Treatment Upcoming Encounters Date Type Department Care Team (Late st Contact Info) Description 12/19/2024 10:30 AM CDT Lab [facility] [address] [phone] Blaze Haley MD [address] [place] [phone] Lab, Cc [facility] 12/19/2024 10:45 AM CDT Office Visit [facility] [address] [phone] Blaze Haley MD [address] [place] [phone] documented as of this encounter Visit Diagnoses Diagnosis PE (pulmonary thromboembolism) (HCC) Chronic pulmonary embolism documented in this encounter Additional Health Concerns Assessment Noted Time PHQ-9 Depression Total Score: 1 02/21/20 21 2:07 PM CDT documented as of this encounter Care Teams Pharmacy Picking Tech Relationship Specialty Start Date End Date Blaze Haley MD [address] [place] [phone] PCP - General Oncology 11/14/20 documented as of this encounter
--- OUTSIDE RECORDS SUMMARY | 2024-09-09 15:51 | XMS_ITS | Clinical Summary ---
Author Organization [facility] Address [address] [place] [address] Care Team Providers Care Body Maker Name Role Phone Phil Glass MD Primary Care Provider [phone] Imani Sierra MD Unavailable [phone] Allergies Active Allergy Reactions Criticality Noted Date Comments Amoxicillin Rash Low 04/19/2022 Reaction: Rash, Amoxicillin-Pot Clavulanate Diarrhea,Unknown Low 05/22/2015 Hydrocodone Anaphylaxis,Other (see comment),Unknown High 05/09/2014 Stopped breathing Reaction: Anaphylaxis, Hydromorphone Other (see comment),Unknown Low 12/15/2018 Hypoten Tachycardia Bradycardia Iodinated Casein Unknown 09/30/2018 Iodinated Contrast Media Unknown 09/30/2018 Iodine Rash,Unknown Medium 09/30/2018 Reaction: Rash, Morphine Rash,Vomiting Medium 09/30/2018 Seasonal Rash Low 10/17/2020 Adhesive Tape Rash,Other (see comment) Medium 12/16/2018 Reaction: Other Tramadol Dizziness,Other (see comment),Unknown Low 05/09/2014 made me feel not okay Yellow Dye Rash Medium 05/09/2014 Medications docusate calcium (SURFAK) 240 MG capsule Take 1 capsule (240 mg total) by mouth daily. Taking in the evening. Active Multiple Vitamin (MULTIVITAMIN S OR) Take 1 tablet by mouth daily. Active losartan (COZAAR) 25 MG tablet Take 1 tablet (25 mg total) by mouth daily. Active oxyCODONE-beltran taminophen (PERCOCET) 10-325 MG tablet Take 0.5 tablets by mouth every 4 (four) hours as needed for Pain. For generalized pain Active rosuvastatin (CRESTOR) 10 MG tablet Take 1 tablet (10 mg total) by mouth nightly at bedtime. Active Methionine 100 MG Pack Take 1 packet by mouth as needed. Active acyclovir (ZOVIRAX) 5 % cream Apply 1 Application topically as needed. Active ALPRAZolam (XANAX) 0.5 MG tablet Take 1 tablet (0.5 mg total) by mouth 3 (three) times daily as needed. anxiety 04/18/20 Active cyclobenzapri ne (FLEXERIL) 10 MG tablet Take 1 tablet (10 mg total) by mouth 2 (two) times a day. 04/18/20 Active vitamin D2, ergocalcifero l, (DRISDOL) 15985 UNITS capsule Take 1 capsule (1.25 mg total) by mouth weekly. 04/18/20 22 Active fluticasone propionate (FLONASE) 50 MCG/ACT nasal spray 1 spray by Each Nostril route daily. Active gabapentin (NEURONTIN) 300 MG capsule Take 1 capsule (300 mg total) by mouth 3 (three) times a day. Patient is taking 2 capsules in the evening and 1 capsule in the afternoon Active glimepiride (AMARYL) 2 MG tablet Take 1 tablet (2 mg total) by mouth daily. Active pantoprazole EC (PROTONIX) 40 MG tablet Take 1 tablet (40 mg total) by mouth daily. Patient taking in the afternoon Active XARELTO 20 MG Tab tablet Take 1 tablet (20 mg total) by mouth nightly at bedtime. 02/21/20 22 Active magnesium oxide (MAG-OX) 400 (240 Mg) MG tablet Take 1 tablet (400 mg total) by mouth daily. 90 tablet 3 07/04/19 23 Active naLOXone 0.4 MG/ML Solution Cartridge inject 1 milliliter by IM route over once, may repeat at 2 to 3 minute intervals as needed 01/23/20 22 Active Calcium Carb-Cholecal ciferol (CALTRATE 600+D3 SOFT) 600-20 MG-MCG Chew Tab Active ONETOUCH VERIO test strip 12/03/19 24 Active Continuous Glucose Control Panel Tester (FREESTYLE MOUNA 2 READER) Device USE WITH FREESTYLE SENSOR 03/13/20 23 Active Lancets (ONETOUCH ULTRASOFT) lancets 10/02/19 24 Active metoprolol tartrate (LOPRESSOR) 25 MG tablet TAKE 1 TABLET BY MOUTH 2 TIMES DAILY. 60 tablet 1 08/20/19 25 Active lidocaine (XYLOCAINE) 5 % ointment Apply topically as needed for pain 08/10/19 Active CYMBALTA 60 MG capsule Take 1 capsule (60 mg total) by mouth daily. 02/19/20 24 Active ondansetron (ZOFRAN) 4 MG tablet Take 1 tablet (4 mg total) by mouth every 6 (six) hours as needed. Active FOSAMAX 70 MG tablet Take 1 tablet (70 mg total) by mouth once a week. 07/14/19 25 Active ipratropium (ATROVENT) 0.06 % nasal spray 2 sprays by Nasal route every 8 (eight) hours. 03/21/20 025 Active lidocaine (LMX) 4 % cream Apply 1 Tube topically as needed. Apply at BUM as needed 025 Discontinued(P t. elected to discontinue med) OZEMPIC, 0.25 OR 0.5 MG/DOSE, 2 MG/3ML injection (PEN) inject (0.25MG) by subcutaneous route every week on the same day of each week 01/08/20 025 Discontinued(P t. elected to discontinue med) metoprolol tartrate (LOPRESSOR) 25 MG tablet Take 1 tablet (25 mg total) by mouth 2 (two) times daily. 60 tablet 5 02/18/20 025 Discontinued Active Problems Problem Noted Date Diagnosed Date Elevated blood pressure reading 06/20/2024 HTN (hypertension) 06/20/2024 Chest pain, unspecified type 02/18/2024 Tachycardia 02/18/2024 TANNER (dyspnea on exertion) 02/18/2024 Status post placement of implantable loop record er 09/25/2022 Syncope and collapse 09/25/2022 Ventricular tachycardia ([facility]) 2021 V-tach ([facility]) 04/19/2022 Nicotine dependence with current use 08/02/2021 Weakness 08/02/2021 PE (pulmonary thromboembolism) ([facility]) 05/01/2021 Cigarette smoker 02/25/2021 FAP (familial adenomatous polyposis) 11/30/2018 Overview (04/19/2022): Added automatically from request for surgery [id number] Added automatically from request for surgery [id number] Polyneuropathy 05/09/2014 Abnormal gait 01/02/2014 Anorectal polyp 01/02/2014 Atypical facial pain 01/02/2014 Lymphadenopathy 10/19/2013 Muscle weakness 10/03/2013 Encounters Date Type Department Care Team Description 08/30/2024 10:45 AM CDT Office Visit [facility], [address] [address] Bhupendra Johnson MD Tachycardia; Hypertension; Follow Up (6 months) 08/30/2024 Travel 08/29/2024 10:55 AM CDT Allied Health/Nurse Visit [facility], [address] [address] Imani Sierra MD Remote Device Check 07/25/2024 10:55 AM ALTERNATIVE DISPUTE RESOLUTION MEDIATOR Allied Health/Nurse Visit [facility], [address] [address] Imani Sierra MD Remote Device Check 06/24/2024 8:00 AM ALTERNATIVE DISPUTE RESOLUTION MEDIATOR - 06/24/2024 11:59 PM ALTERNATIVE DISPUTE RESOLUTION MEDIATOR Hospital Encounter [facility] [place] [address] Radha Asencio FNP Discharge Disposition: Home or Self Care (Routine Discharge) 06/24/2024 Travel 06/20/2024 10:55 AM ALTERNATIVE DISPUTE RESOLUTION MEDIATOR Allied Health/Nurse Visit [facility], [address] [address] Imani Sierra MD Remote Device Check from Last 3 Months Immunizations Name Administration Dates Next Due H1N1 2009 Influenza Vaccine 07/03/2017 Influenza (Generic) 07/03/2017 Influenza Adult (Generic) 05/16/2020,05/07/2019 Social History Tobacco Use Types Packs/Day Years Used Date Smoking Tobacco: Former Cigarettes 1 28.9 1 994 - 05/2022 Smokeless Tobacco: Current Tobacco Cessation:Ready to Q uit: Not Asked; Counseling Given: Not Answered Alcohol Use Standard Drinks/Week Comments Never 0 (1 standard drink = 0.6 oz pur e alcohol) Comments Unknown Sex and Gender Information Value Date Recorded Sex Assigned at Female 06/24/2024 8:03 AM ALTERNATIVE DISPUTE RESOLUTION MEDIATOR Legal Sex Female 5:57 PM ALTERNATIVE DISPUTE RESOLUTION MEDIATOR Gender Identity Not on file Sexual Orientation Not on file Last Filed Vital Signs Vital Sign Reading Time Taken Comments Blood Pressure 112/76 08/30/2024 10:35 AM CDT Pulse 80 08/30/2024 10:35 AM CDT Temperature 36.2 C (97.2 F) 04/22/2022 1:55 PM ALTERNATIVE DISPUTE RESOLUTION MEDIATOR Respiratory Rate 16 04/22/2022 3:14 PM ALTERNATIVE DISPUTE RESOLUTION MEDIATOR Oxygen Saturation 100% 08/30/2024 10:35 AM CDT Inhaled Oxygen Concentration - - Weight 83 kg (183 lb) 08/30/2024 10:35 AM CDT Height 157.5 cm (5' 2 ) 08/30/2024 10:35 AM CDT Body Mass Index 33.47 08/30/2024 10:35 AM CDT Plan of Treatment Upcoming Encounters Date Type Department Care Team (Late st Contact Info) Description 10/03/2024 10:55 AM CDT Allied Health/Nurse Visit [facility] on [address] [address] Imani Sierra MD [facility] [address] [place] [address] 03/01/2025 12:00 PM CDT Office Visit [facility], [address] [phone] Bhupendra Johnson MD [facility], [facility] [address] [place], [place] [address] Health Maintenance Due Date Last Done Comments Cervical Cancer Screening Pap Smear (Age 30 to 64) Every 3 Years 1974 Kidney Health Evaluation 1974 Annual Physical 1977 Pneumococcal Vaccine: Pediatrics (0 to 5 Years) and At-Risk Patients (6 to 64 Years) (1 of 2 - PCV) 1980 Diabetes: Retinopathy Eye Exam 1992 Hepatitis C 1992 DTaP, Tdap and Td Vaccines (1 - Tdap) 1993 Hepatitis B Vaccines (1 of 3 - 19+ 3-dose series) 1993 Cervical Cancer Screening Pap with HPV Testing (Age 30 to 64) Every 5 Years 2004 Cervical Cancer Screening with HPV 2004 Lipid Panel 10/06/2019 10/05/2018 Hemoglobin A1C 10/17/2022 04/19/2022, 10/05/2018 COVID-19 Vaccine ( season) 2024 Lung Cancer Screening 2024 07/15/2014 , 06/27/2014, 11/07/2013 Zoster Vaccines (1 of 2) 2024 Mammogram Screening 10/07/2025 10/08/2023, 08/08/2022, 04/25/2021, Additional history exists Meningococcal B Vaccine Aged Out No l onger eligible based on patient's age to complete this topic Meningococcal Vaccine Aged Out No allison dorcas eligible based on patient's age to complete this topic RSV Immunizations Under 20 Months Aged Out No longer eligible based on patient's age to complete this topic Goals Goal Patient Goal Type Associated Problems Recent Progress Patient-Stated? Author Health - patient able to perform ADLs independently Lifestyle No Adrian Tran RN Medical Devices Implanted Type Area Support Assistant Device Identifier Shelf Expiration Date Model / Serial / Lot Bs Implantable Loop Recorder- [id number] Implanted:09/25 by Imani Sierra MD (Quantity not on file) Implantable Loop Recorder Coquelux 11/05/2023 [id number] / [id number] / Procedures Procedure Name Priority Date/Time Associated Diagnosis Comments USV SANJEEV DUPLEX LOW EXT LT LETITIA 06/24/2024 8:28 AM ALTERNATIVE DISPUTE RESOLUTION MEDIATOR Pain of left lower extremity HEMOGLOBIN, GLYCOSYLATED Routine 04/19/2022 9:20 AM ALTERNATIVE DISPUTE RESOLUTION MEDIATOR from Last 3 Months or Most Recently Relevant to Health Maintenance Results * USV SANJEEV DUPLEX LOW EXT LT (06/24/2024 8:28 AM ALTERNATIVE DISPUTE RESOLUTION MEDIATOR) Anatomical Region Laterality Modality Vascular Ultraso und 06/24/2024 8:13 AM ALTERNATIVE DISPUTE RESOLUTION MEDIATOR Narrative 06/25/2024 5:44 PM ALTERNATIVE DISPUTE RESOLUTION MEDIATOR VENOUS DUPLEX IMAGING LEFT LOWER EXTREMITY VASCULAR LAB Pat.Name: TARIK KRAUS Pat.ID: [id number] St.Date: 06/24/2024 Refer.: [id number], Rebekah cope Exam Time: 8:13:00 AM Study Type:CLARITA VS Venous Duplex Leg Lt Age: 11 1975,49Y Sex: F Sonogrphr: Khoi Clemons, T Pat. Stat.:Outpatient History / Clinical:burning lump behind left knee, hx DVT 2014, on xarelto Procedures: Suggs scale, Color Doppler imaging, Doppler Spectral Analysis Race: W ++++++++++++++++++++++++++++++++++++ SUMMARY: ++++++++++++++++++++++++++++++++++++ Left leg: There are NO apparent, deep or superficial vein, ACUTE character venous filling defects visualized in the femoral, popliteal, deep calf or proximal saphenous veins. Resting venous flow is normal phasic proximally. Hypo echoic, avascular area in the left popliteal fossa measuring approximately 1.2 x 3.0 x 6.0 cm, consistent with a Rico's cyst. Right leg LIMITED: Resting venous flow is normal phasic at the common femoral. CONCLUSION: Normal study left lower extremity, with no evidence of acute deep or superficial vein thrombosis. There is no significant reflux detected. <Electronic Signature> 06/25/2024 05:44 PM Jg Carrillo M.D. Procedure Note Jg Carrillo MD - 06/25/2024 VENOUS DUPLEX IMAGING LEFT LOWER EXTREMITY VASCULAR LAB Pat.Name: TARIK KRAUS Pat.ID: [id number] .Date: 06/24/2024 : [id number], Rebekah cope Exam Time: 8:13:00 AM Study Type:CLARITA VS Venous Duplex Leg Lt Age: 11 1975,49Y Sex: F Sonogrphr: Khoi Clemons, MATT Pat. Stat.:Outpatient History / Clinical:burning lump behind left knee, hx DVT 2014, on xarelto Procedures: Suggs scale, Color Doppler imaging, Doppler Spectral Analysis Race: W ++++++++++++++++++++++++++++++++++++ SUMMARY: ++++++++++++++++++++++++++++++++++++ Left leg: There are NO apparent, deep or superficial vein, ACUTE character venous filling defects visualized in the femoral, popliteal, deep calf or proximal saphenous veins. Resting venous flow is normal phasic proximally. Hypo echoic, avascular area in the left popliteal fossa measuring approximately 1.2 x 3.0 x 6.0 cm, consistent with a Rico's cyst. Right leg LIMITED: Resting venous flow is normal phasic at the common femoral. CONCLUSION: Normal study left lower extremity, with no evidence of acute deep or superficial vein thrombosis. There is no significant reflux detected. <Electronic Signature> 06/25/2024 05:44 PM Jg Carrillo M.D. Radha Asencio [facility] VASC Fi nal Result * (ABNORMAL) HEMOGLOBIN, GLYCATED (04/19/2022 9:20 AM ALTERNATIVE DISPUTE RESOLUTION MEDIATOR) HGB A1C 7.1(H) <5.7 % 04/19/2022 3:04 PM ALTERNATIVE DISPUTE RESOLUTION MEDIATOR [facility] Comment: ADA GUIDELINES 2010 5.7 TO 6.4% INCREASED RISK OF DIABETES > OR = 6.5% CONSISTENT WITH DIABETES ESTIMATED AVG GLUCOSE 157 mg/dL 04/19/2022 3:04 PM ALTERNATIVE DISPUTE RESOLUTION MEDIATOR [facility] 04/19/2022 9:20 AM ALTERNATIVE DISPUTE RESOLUTION MEDIATOR Jody Busch MD LABORATORY Final Resul t [facility] [address] [place] [address], from Last 3 Months or Most Recently Relevant to Health Maintenance Insurance [place] [address] [place] [address] Advance Directives * Full Code (Latest Code Status on File) Date Activated Date Inactivated Comments 04/22/2022 2:36 PM 04/22/2022 7:02 PM * Full Code Date Activated Date Inactivated Comments 04/19/2022 2:01 AM 04/22/2022 2:36 PM Care Teams Body Maker Relationship Specialty Start Date End Date Phil Glass MD [address] [place] [id number] PCP - General FAMILY PRACTICE 04/19/22 Imani Sierra MD [address] [address] Consulting Physician CLINICAL CARDIAC ELECTROPHYSIOLOGY 05/16/24
--- OUTSIDE RECORDS SUMMARY | 2024-09-09 15:51 | XMS_ITS | Data Portability ---
Author Organization REGGIE Perla VUONG Address [address], Located Within [facility] [place] [address] Care Team Providers Care Manager Electrical Name Role Phone CHARANJIT CHICAS Fire Safety Manager Unavailable Assessment Encounter Date Assessment Date Assessment LastModified by Organization Details LastModified Time 03/18/2017 03/18/2017 Patient given order for mammogram screening. Will follow up pending results. [email or web address] Not available 03/26/2017 11:55:20 Plan of Treatment Reminders Order Date Submit Date Provider Last Modified By Organization Details Last Modified Time Details Appointments None recorded. Lab SARS CoV 2 RNA (COVID-19), QL, hotel attendant-PCR, respiratory specimen - [place] 3:00 2019 020 [facility] (Lab), [address] [place], [address], 0 17:23:32 SARS CoV 2 RNA (COVID-19), QL, hotel attendant-PCR, respiratory specimen - [place] 1:45 2019 020 [facility] (Lab), [address] [place], [address], 0 17:57:17 Referral None recorded. Procedures None recorded. Surgeries None recorded. Imaging MAMMO, screening, bilateral [address], [address], 7 16:08:14 Medication Orders None recorded. Patient TargetsNo targets recorded. Patient Instructions Encounter Date Encounter Id Patient Instructions Last Modified By Organization Details Last Modified Time 03/06/2020 [id number] things to do i f you've been exposed to covid-19 [email or web address] Not available 03/06/2020 14:45:54 Reason for Referral None Reported. Results Created Date Observation Date Name Description Value Unit Range Abnormal Flag Note LastModifiedBy Organization Detail LastModifiedTime 02/24/20 20 02/24/2020 SARS CoV 2 RNA (COVI D-19) , QL, hotel attendant-P CR, respi rator y speci men sars - cov - 2 PCR NEGATI VE mL Not Available [facility] (Lab) [address] [place], [address], 02/25/2020 17:57:17 02/24/2002/24/2020 SARS CoV 2 RNA (COVI D-19) , QL, hotel attendant-P CR, respi rator y speci men covidcom1 COMME NTS: This assay is desig jolie to detec t the RdRp and N genes of SARS- CoV-2 using nucle ic acid ampli ficat ion. A negat anu resul t does not precl ude the possi bilit y of 2019- nCoV infec tion since the adequ acy of sampl e colle ction and/o r low viral burde n may resul t in the prese nce of viral nucle ic acids level s below the john tical sensi tivit y of this test metho d. Not Available [facility] (Lab) [address] [facility], [place], [address], 02/25/2020 17:57:17 02/24/2002/24/2020 SARS CoV 2 RNA (COVI D-19) , QL, hotel attendant-P CR, respi rator y speci men covidcom2 Posit anu resul ts are indic ative of the prese nce of SARS- CoV-2 RNA and do not rule out bacte rial infec tion or co-in fecti on with other virus es. Not Available [facility] (Lab) [address] [facility], [place], [address], 02/25/2020 17:57:17 02/24/2002/24/2020 SARS CoV 2 RNA (COVI D-19) , QL, hotel attendant-P CR, respi rator y speci men covidcom3 Test resul ts shoul d be used along with other clini karen obser vatio ns, patie nt histo ry, epide miolo gical infor matio n and labor atory data in candelario g the diagn osis. Not Available [facility] (Lab) [address] [place], [address], 02/25/2020 17:57:17 02/24/20 20 02/24/2020 SARS CoV 2 RNA (COVI D-19) , QL, hotel attendant-P CR, respi rator y speci men covidcom4 This test has recei yana FDA Emerg ency Use Autho rizat ion and has been verif ied by [facility] . This test is only autho rized for the durat ion of the decla ratio n and the circu mstan macy that exist to justi fy the autho rizat ion of the emerg ency use of in vitro diagn ostic tests for the detec tion of SARS- CoV-2 virus and/o r diagn osis of COVID -19 infec tion under secti on 564 (b) (1) of the Act. 11 U.S.C . 360bb b-3 (b) (1), unles s the autho rizat ion is termi nated or revok ed soone r. Not Available [facility] (Lab) [address] [place], [address], 02/25/2020 17:57:17 02/24/20 20 02/24/2020 SARS CoV 2 RNA (COVI D-19) , QL, hotel attendant-P CR, respi rator y speci men covidcom5 [facility] is certi fied under CLIA- 88 as quali fied to perfo rm high compl exity testi ng. This testi ng was perfo rmed in the [facility] [place] [address] (CLIA Licen se #[id number], CAP #[id number], AU-ID #[id number]). Not Available [facility] (Lab) [address] [place], [address], 02/25/2020 17:57:17 02/24/20 20 02/24/2020 SARS CoV 2 RNA (COVI D-19) , QL, hotel attendant-P CR, respi rator y speci men covidcom6 Facts heet for healt hcare provi ders: https ://ww [employer].Marinelayer .gov/ media /1362 56/do wnloa d Facts heet for patie nts: https ://[employer].Marinelayer .gov/ media /1362 57/do wnloa d Not Available [facility] (Lab) [address] [facility], [place], [address], 02/25/2020 17:57:17 03/06/20 20 03/06/2020 SARS CoV 2 RNA (COVI D-19) , QL, hotel attendant-P CR, respi rator y speci men sars - cov - 2 PCR NEGATI VE mL Not Available [facility] (Lab) [address] [place], [address], 03/07/2020 17:23:32 03/06/20 20 03/06/2020 SARS CoV 2 RNA (COVI D-19) , QL, hotel attendant-P CR, respi rator y speci men covidcom1 COMME NTS: This assay is desig jolie to detec t the RdRp and N genes of SARS- CoV-2 using nucle ic acid ampli ficat ion. A negat anu resul t does not precl ude the possi bilit y of 2019- nCoV infec tion since the adequ acy of sampl e colle ction and/o r low viral burde n may resul t in the prese nce of viral nucle ic acids level s below the john tical sensi tivit y of this test metho d. Not Available [facility] (Lab) [address] [facility], [place], [address], 03/07/2020 17:23:32 03/06/20 20 03/06/2020 SARS CoV 2 RNA (COVI D-19) , QL, hotel attendant-P CR, respi rator y speci men covidcom2 Posit anu resul ts are indic ative of the prese nce of SARS- CoV-2 RNA and do not rule out bacte rial infec tion or co-in fecti on with other virus es. Not Available [facility] (Lab) [address] [place], [address], 03/07/2020 17:23:32 03/06/20 20 03/06/2020 SARS CoV 2 RNA (COVI D-19) , QL, hotel attendant-P CR, respi rator y speci men covidcom3 Test resul ts shoul d be used along with other clini karen obser vatio ns, patie nt histo ry, epide miolo gical infor matio n and labor atory data in makin g the diagn osis. Not Available [facility] (Lab) [address] [place], [address], 03/07/2020 17:23:32 03/06/20 20 03/06/2020 SARS CoV 2 RNA (COVI D-19) , QL, hotel attendant-P CR, respi rator y speci men covidcom4 This test has recei yana FDA Emerg ency Use Autho rizat ion and has been verif ied by [facility] . This test is only autho rized for the durat ion of the decla ratio n and the circu mstan macy that exist to justi fy the autho rizat ion of the emerg ency use of in vitro diagn ostic tests for the detec tion of SARS- CoV-2 virus and/o r diagn osis of COVID -19 infec tion under secti on 564 (b) (1) of the Act. 11 U.S.C . 360bb b-3 (b) (1), unles s the autho rizat ion is termi nated or revok ed soone r. Not Available [facility] (Lab) [address] [place], [address], 03/07/2020 17:23:32 03/06/20 20 03/06/2020 SARS CoV 2 RNA (COVI D-19) , QL, hotel attendant-P CR, respi rator y speci men covidcom5 [facility] at[facility] is certi fied under CLIA- 88 as quali fied to perfo rm high compl exity testi ng. This testi ng was perfo rmed in the [facility] [place] [address] (CLIA Licen se #[id number], CAP #[id number], AU-ID #[id number]). Not Available [facility] (Lab) [address] [place], [address], 03/07/2020 17:23:32 03/06/20 20 03/06/2020 SARS CoV 2 RNA (COVI D-19) , QL, hotel attendant-P CR, respi rator y speci men covidcom6 Facts heet for healt hcare provi ders: https ://ww w.fda .gov/ media /1362 56/do wnloa d Facts heet for patie nts: https ://Radio NEXT w.fda .gov/ media /1362 57/do wnloa d Not Available [facility] (Lab) [address] [place], [address], 03/07/2020 17:23:32 03/23/20 17 03/23/2017 yury SUN, bilat eral No observ ation record ed. [address] [facility] [address], [address], 03/27/2017 16:08:24 03/23/20 17 03/23/2017 yury SUN bilat eral No observ ation record ed. [address] [facility] [address], [place], [address], 03/27/2017 16:08:14 04/02/20 17 03/23/2017 MAMMO , scree alysia, bilat eral No observ ation record ed. [address] [place] [address], [address], 04/07/2017 15:05:24 04/02/20 17 03/23/2017 MAMMO , diagn ostic , digit al, bilat eral No observ ation record ed. [address] (Imaging) [address] [place] [address], [phone], 04/07/2017 15:04:55 06/16/19 18 03/23/2017 MAMMO , diagn ostic , digit al, bilat eral No observ ation record ed. [email or web address] Not Available 02/2018 16:36:02 07/22/19 18 03/23/2017 MAMMO , scree alysia, bilat eral No observ ation record ed. [address], [address], 07/30/2017 15:33:38 Result Notes None recorded. Problems Name Problem SNOMED Code Status Onset Date Resolution Date Notes Provider Name and Address Organization Details Recorded Time No current problems or disability 769889388 Active AZIZA Marks [facility] 7 15:01:26 Breast lump 71947290 Active 017 AZIZA Marks [facility] 7 15:03:10 Problem Notes None recorded. Procedures Surgical History Date Name Laterality Status Provider Name and Address Organization Details Recorded Time Total hysterectomy completed Kika Gold [place] - [facility] 03/18/2017 16:50:43 Breast Surgery completed Jacquelin Gold [place] [facility] 03/18/2017 16:50:23 Tonsillectomy completed AZIZA Marks [facility] 03/18/2017 16:50:28 Imaging Results Imaging Date Name Status LastModified by Organiz ation Details LastModified Time 03/23/2017 MAMMO, screening, bilateral completed [address] [place], [address], 03/27/2017 16:08:24 03/23/2017 MAMMO, screening, bilateral completed [address], [address], 03/27/2017 16:08:14 03/23/2017 MAMMO, screening, bilateral completed [address], [address], 04/07/2017 15:05:24 03/23/2017 MAMMO, diagnostic, digital, bilateral completed [address] (Imaging) [address] [place] [address], [phone], 04/07/2017 15:04:55 03/23/2017 MAMMO, diagnostic, digital, bilateral completed [email or web address] Information not available 06/16/2017 16:36:02 03/23/2017 MAMMO, screening, bilateral completed [address], [address], 07/30/2017 15:33:38 Procedure Notes None recorded. Medical Equipment None Reported. Allergies Allergen ID Allergen Name Allergen Category Reaction Reaction Severity Criticality Documentation Date Start Date Code Code System Note Provider Name and Address Organization Details Recorded Time 081684 Iodinated contrast media (substanc e) medicatio n Not available Not available Not available 08/02/2018 57232 2004 SNOMED Not Available Not Available Not Available 67197 Dilaudid medicatio n Not available Not available Not available 03/18/2017 46193 3 RxNorm Not Available Not Available Not Available 10807 hydrocodo ne Not available Not available Not available Not available 03/18/2017 5489 RxNorm Not Available Not Available Not Available 26970 tramadol medicatio n Not available Not available Not available 03/18/2017 24204 RxNorm Not Available Not Available Not Available 13596 Augmentin medicatio n Not available Not available Not available 03/18/2017 82178 2 RxNorm Not Available Not Available Not Available Medications Name Sig Start Date Stop Date Status Note LastModified by Organization Details LastModified Time cyclobenzapr ine 10 mg tablet Take 1 tablet twice a day by oral route for 30 days. active Not Available Not Available No t Available montelukast 5 mg chewable tablet active Not Available Not Available Not Available oxybutynin chloride ER 15 mg tablet,exten ded release 24 hr Take 1 tablet every day by oral route for 30 days. active Not Available Not Available No t Available clindamycin HCl 300 mg capsule Take 1 capsule every 8 hours by oral route. 2018 active Not Available Not Available Not Avai lable oxybutynin chloride ER 10 mg tablet,exten ded release 24 hr 08/02 completed Not Available Not Available Not Available penicillin V potassium 500 mg tablet active Not Available Not Available Not Available amlodipine 5 mg tablet active Not Available Not Available No t Available alprazolam 0.5 mg tablet Take 1 tablet 3 times a day by oral route for 30 days. active Not Available Not Available No t Available doxycycline monohydrate 50 mg capsule active Not Available Not Available Not Available oxycodone-ac etaminophen 10 mg-325 mg tablet Take 1 tablet 3 times a day by oral route as needed for 30 days. active Not Available Not Available No t Available cephalexin 500 mg capsule 08/02 completed Not Available Not Available Not Available pantoprazole 40 mg tablet,delay ed release Take 1 tablet every day by oral route for 30 days. active Not Available Not Available No t Available pyridostigmi ne bromide 60 mg tablet active Not Available Not Available Not Available warfarin 5 mg tablet active Not Available Not Available No t Available gabapentin 300 mg capsule 1-2 tabs tid active Not Available Not Available No t Available warfarin 1 mg tablet active Not Available Not Available No t Available oxycodone-ac etaminophen 7.5 mg-325 mg tablet 08/02 completed Not Available Not Available Not Available ipratropium bromide 42 mcg (0.06 %) nasal spray active Not Available Not Available Not Available topiramate 50 mg tablet active Not Available Not Available Not Available duloxetine 30 mg capsule,katheryn yed release active Not Available Not Available Not Available duloxetine 60 mg capsule,katheryn yed release active Not Available Not Available Not Available Januvia 100 mg tablet Take 1 tablet every day by oral route. active Not Available Not Available No t Available Garret Galvanar U-100 Insulin 100 unit/mL (3 mL) subcutaneous pen 08/02 completed Not Available Not Available Not Available Prevnar 13 (PF) 0.5 mL intramuscula r syringe 08/02 completed Not Available Not Available Not Available OneTouch Delica Lancets 33 gauge active Not Available Not Available Not Available BD Ultra-Fine Oanh Pen Needle 32 gauge x /32 active Not Available Not Available Not Available Xarelto 20 mg tablet active Not Available Not Available No t Available OneTouch Verio test strips active Not Available Not Available Not Available Myrbetriq 50 mg tablet,exten ded release active Not Available Not Available Not Available Levemir FlexTouch U-100 Insulin 100 unit/mL (3 mL) subcutaneous pen INJECT 10 UNITS DAILY active Not Available Not Available No t Available Fluvirin (PF) 45 mcg (15 mcg x 3)/0.5 mL intramuscula r syringe 08/02 completed Not Available Not Available Not Available Flucelvax Quad 60 mcg (15 mcg x 4)/0.5 mL intramuscula r susp active Not Available Not Available Not Available Vitals Date Recorded Body weight Body height Body mass index (BMI) Oxygen saturation Oxygen saturation in Arterial blood by Pulse oximetry Heart rate Systolic blood pressure Diastolic blood pressure Provider Name and Address Organization Details Last Updated DateTime 9 15039.1 1 g 157.48 cm 30.9 kg/m2 98 % 98 % 83 /min 122 mm[Hg] 90 mm[Hg] Ciara Farr MA [facility] 9 12:40:00 Date Recorded Body weight Provider Name an d Address Organization Details Last Updated DateTime 03/18/2017 70188.91 g Jacquelin Gold MA [facility] 03/18/2017 16:24:06 Social History Question Answer Notes LastModified by Organizat ion Details LastModified Time Tobacco Smoking Status Current Every Day Smoker Jacquelin Gold MA null, [facility] 03/18/2017 16:47:52 What Is Your Level Of Alcohol Consumption? None Information not available 03/18/2017 How Much Tobacco Do You Chew? None Information not available 03/18/2017 Are You Currently Employed? No Information not available 03/18/2017 What Is Your Occupation? None Information not available 03/18/2017 Are There Any Guns Present In Your Home? Yes Information not available 03/18/2017 Live Alone Or With Others? With Others Information not available 03/18/2017 What Was The Date Of Your Most Recent Tobacco Screening? 08/02/2018 Information not available 12/30/2018 How Many Children Do You Have? 2 Information not available 03/18/2017 Seat Belts Used Routinely Yes Information not available 03/18/2017 At What Age Did You Start Smoking Tobacco? 19 Information not available 03/18/2017 How Much Tobacco Do You Smoke? 0.5 PPD Information not available 03/18/2017 How Many Years Have You Smoked Tobacco? 20 Information not available 03/18/2017 Sex: Female Functional Status None recorded. Mental Status None recorded. Family History Relationship Description Onset Age of this Age Resolved Age Notes LastModified by Organization Details LastModified Time Father Alcohol abuse [email or web address] Not available 03/18 16:33:21 Father Diabetes mellitus sdevriesma Not available 03/18 16:36:22 Father Hypertensive disorder sdevriesma Not available 03/18 16:37:02 Father Family history of malignant neoplasm Prosta te sdevriesma Not available 03/18/2017 16:38:32 Father Heart disease Many heart attack s sdevriesma Not available 03/18/2017 16:40:14 Paternal Grandmother Alcohol abuse sdevriesma Not available 03/18 16:33:21 Paternal Grandmother Family history of malignant neoplasm Starte d in the bladde r and spread and breast sdevriesma Not available 03/18/2017 16:38:32 Mother Depressive disorder sdevriesma Not available 03/18 16:34:26 Mother Diabetes mellitus sdevriesma Not available 03/18 16:36:22 Mother Heart disease aortic valve issues sdevriesma Not available 03/18/2017 16:40:14 Sister Diabetes mellitus sdevriesma Not available 03/18 16:36:22 Sister Diabetes mellitus sdevriesma Not available 03/18 16:36:22 Sister Hypertensive disorder sdevriesma Not available 03/18 16:37:02 Sister Family history of malignant neoplasm Lukemi a and Uterin sdevriesma Not available 03/18/2017 16:38:32 Paternal Aunt Diabetes mellitus sdevriesma Not available 03/18 16:36:22 Paternal Grandfather Family history of malignant neoplasm Skin Cancer sdevriesma Not available 03/18/2017 16:38:50 Medical History Condition Response Diabetes Muscle, Joint, or Bone Problems Y Other Y Cancer Y Blood Clots Y Osteoporosis Y Gynecological History Statement/Question Response Date of Last Mammogram Date of LMP Menses Monthly N Age at Menarche 11 Current Control Method Hysterectom y Age at First Child 23 Obstetrics History GPAL:G 4 P 2 0 2 2 Type Value Multiple Births 0 Full Term 2 Induced 0 Spontaneous 1 Premature 0 Living 2 Ectopics 1 Total 4 Past Encounters Encounter ID Performer Location Encounter Start Date Encounter Closed Date Diagnosis/Indication Diagnosis SNOMED-CT Code Diagnosis ICD10 Code [id number] [facility] [address] [place] [address] 03/18/2017 16:13:18 03/19/2017 13:38:01 Screening mammography 35976137 Z12.31 [id number] Jared Burns PA-C [facility] [address] [place] [address] 08/02/2018 12:09:09 08/02/2018 13:17:07 [id number] CASSI ChingJUSTYN [facility] [place] [address] [place] [address] 02/24/2020 09:21:07 02/28/2020 10:45:24 Suspected COVID-19 185855846 Z03.370 [id number] Alysha Mcconnell [facility] [place] [address] [place] [address] 03/06/2020 14:25:22 03/08/2020 10:00:39 Exposure to SARS-CoV-2 634608521 Z20.828 Health Concerns Section Related Observation LastModified by Organization Detai ls LastModified Time None Recorded Concern Status LastModified by Organization Details LastModified Time None Recorded Advance Directives Directive None Recorded Payers Encounter Date Sequence Insurance Name Policy Number Policy Sawyer Covered Member ID Sawyer Member ID Guarantor Name 03/18/2017 1 [place]) [id number] Sammy Xiong Nayana [id number] [facility] 03/18/2017 1 [place] [facility] Bita E Nayana [id number] [facility] 08/02/2018 2 [employer] (MEDICAID O) Bita Nayana [id number] [facility] 08/02/2018 1 AETNA - CHOICE (POS II) [id number] Sammy Xiong Nayana [id number] [facility] 02/24/2020 1 [employer] - CHOICE (POS II) [id number] Sammy Xiong Nayana [id number] [facility] 02/24/2020 2 [place] [facility] Bita Nayana [id number] [facility] 03/06/2020 1 [employer]ETNA - CHOICE (POS II) [id number] Sammy Xiong [facility] [id number] [facility] 03/06/2020 2 [place]: [facility] [id number] [facility] Notes Date Note Type Note Provider Name and Address Organization Details Recorded Time 03/18/2017 text/html Patient here for complaint of shahab size cyst of inner right breast. No complaints otherwise. DINA Hodges Attn: Accounting[address] [place], [address], [facility] 03/26/2017 11:55:54 08/02/2018 text/html since march garcia s had her grandchild. all meds are due and her primary retired and also has a neuro Jared Burns PA-C Attn: [address] [place], [address], [facility] 08/02/2018 13:17:05 02/24/2020 text/html COVID-19 Symptom s October 2019Reported bypatient.COVID-19 Signs and Symptomschills same; headache same; sore throat same;new loss of taste or smell Contacts and Exposureclose contact with a confirmed or suspected case of COVID-19; close proximity with person with COVID-19 DINA Ching Attn: Accounting[address], [place], [address], [place] [facility] 02/24/2020 12:07:24 03/06/2020 text/html COVID-19 Symptom s October 2019Reported bypatient.Contacts and Exposureclose contact with a confirmed or suspected case of COVID-19; close proximity with person with COVID-19 DINA Ching Attn: Accounting[address], [place], [address], [place] [facility] 03/06/2020 14:46:56 OBGyn Episode Ob Episode Information Episode Created Date Number of Fetuses Patient Bloodtype Patient rh Status Prepregnancy Weight lbs Domestic Partner Domestic Partner Phone Father Name News Production Assistant Status 03/18/20 17 1 CLOSED Fetus Data First Name Last Name Admitted to NICU Weight (g) Sex Living Outcome Pediatric Complications Fetus ID Race Codes Race Delivery Type 3259.96 5704 M Full Term [id number] Javier Calculation Initial Javier Date Initial Exam Date Initial Exam Provider Initial Ultrasound Date Last Menstrual Period Date Ultra Sound Weeks Gestation 0 Eighteen To Twenty Week Javier Update Ultra Sound Date Fundal Height At Umbil Quickening Date Ultra Sound Latest Weeks Gestation Final Javier Confirmed By Final Javier Confirmed Date Final Javier Date Ultra Sound Latest Days Gestation 0 0 Menstrual History Last Menstrual Date Menses Monthly On Bcp Conception Prior Menses Frequency Hcg Plus Date Menarche Onset Age Delivery Information Delivery Date Delivery Type Labor Anesthesia Weeks Gestation Incision Type Labor Labor Length Hrs Delivered By Post Complications Tubal Sterilization Discharge Date Comments 2 Regional-Sp ina Discharge Information Feeding Method Contraceptive Method Maternal HG B and HCT Levels Ob Episode Information Episode Created Date Number of Fetuses Patient Bloodtype Patient rh Status Prepregnancy Weight lbs Domestic Partner Domestic Partner Phone Father Name News Production Assistant Status 03/18/20 17 1 CLOSED Fetus Data First Name Last Name Admitted to NICU Weight (g) Sex Living Outcome Pediatric Complications Fetus ID Race Codes Race Delivery Type [id number] M Full Term [id number] Javier Calculation Initial Javier Date Initial Exam Date Initial Exam Provider Initial Ultrasound Date Last Menstrual Period Date Ultra Sound Weeks Gestation 0 Eighteen To Twenty Week Javier Update Ultra Sound Date Fundal Height At Umbil Quickening Date Ultra Sound Latest Weeks Gestation Final Javier Confirmed By Final Javier Confirmed Date Final Javier Date Ultra Sound Latest Days Gestation 0 0 Menstrual History Last Menstrual Date Menses Monthly On Bcp Conception Prior Menses Frequency Hcg Plus Date Menarche Onset Age Delivery Information Delivery Date Delivery Type Labor Anesthesia Weeks Gestation Incision Type Labor Labor Length Hrs Delivered By Post Complications Tubal Sterilization Discharge Date Comments 9 [facility] Discharge Information Feeding Method Contraceptive Method Maternal HG B and HCT Levels
--- OUTSIDE RECORDS SUMMARY | 2024-09-09 15:51 | XMS_ITS | Encounter Summary ---
Author Organization [facility] Address [address] [place] [address] Phone Care Team Providers Care Licensed Mental Health Professional Name Role Phone Blaze Haley MD Primary Care Provider [phone] Reason for Visit * Reason Comments Medication Refill Encounter Details Date Type Department Care Team (Late st Contact Info) Description 06/26/2024 Refill [facility] [address] [place] [phone] Blaze Haley MD [address] [place] [phone] Medication Refill Social History Tobacco Use Types Packs/Day Years Used Date Smoking Tobacco: Former Cigarettes 0.5 31.3 S tarted: 1994 Smokeless Tobacco: Current Alcohol Use Standard Drinks/Week [...] encounter Miscellaneous Notes * Telephone Encounter - Radha Asencio, [employer] FILLER HEAD, MANAGER EN[employer]ONMENT[employer]FFA[employer] - 06/27/2024 8:50 AM CST Okay to refill. Can you please see if we can get her doppler results. I believe she was going to go to [facility] in [place] for this. Please call and double check that she got it done. Have not sen results come through. 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 Please fill if appropriate. 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 documented in this encounter Plan of Treatment Upcoming Encounters Date Type Department Care Team (Late st Contact Info) Description 12/19/2024 10:30 AM CDT Lab [facility] [address] [phone] Blaze Haley MD [address] [place] [phone] [facility] 12/19/2024 10:45 AM CDT Office Visit [facility] [address] [phone] Blaze Haley MD [address] [place] [phone] documented as of this encounter Visit Diagnoses Diagnosis PE (pulmonary thromboembolism) (HCC) Chronic pulmonary embolism documented in this encounter Additional Health Concerns Assessment Noted Time PHQ-9 Depression Total Score: 1 02/21/20 21 2:07 PM CDT documented as of this encounter Care Teams Licensed Mental Health Professional Relationship Specialty Start Date End Date Blaze Haley MD [address] [place] [phone] PCP - General Oncology 11/14/20 documented as of this encounter
--- OUTSIDE RECORDS SUMMARY | 2024-09-09 15:51 | XMS_ITS | Encounter Summary ---
Author Organization [facility] Address [address] [place] [address] Phone Care Team Providers Care Corrugator Operator Helper Name Role Phone Blaze Haley MD Primary Care Provider [phone] Reason for Visit * Reason Comments Medication Refill Encounter Details Date Type Department Care Team (Late st Contact Info) Description 2022 Refill [facility] [address] [phone] Phyllis Martin, [place] Medication Refill [...] Telephone Encounter - Renee Martin RN - 05/20/2022 8:13 AM CST Refill request from pharmacy. 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 documented in this encounter Plan of Treatment Upcoming Encounters Date Type Department Care Team (Late st Contact Info) Description 12/19/2024 10:30 AM CDT Lab [facility] [address] [phone] Blaze Haley MD [address] [place] [phone] Lab, [facility] 12/19/2024 10:45 AM CDT Office Visit [facility] [address] [phone] Blaze Haley MD [address] [place] [phone] documented as of this encounter Visit Diagnoses Diagnosis PE (pulmonary thromboembolism) (HCC) Chronic pulmonary embolism documented in this encounter Additional Health Concerns Assessment Noted Time PHQ-9 Depression Total Score: 1 02/21/20 21 2:07 PM CDT documented as of this encounter Care Teams Corrugator Operator Helper Relationship Specialty Start Date End Date Blaze Haley MD [address] [place] [phone] PCP - General Oncology 11/14/20 documented as of this encounter
--- OUTSIDE RECORDS SUMMARY | 2024-09-09 15:51 | XMS_ITS | Referral Summary ---
Author Organization [facility] 2 Address [address] [place] [address] Care Team Providers Care Civil Attorney Name Role Phone Rhonda Anguiano RN Unavailable Unavailable Phil Glass MD Primary Care Provider [phone] Blaze Haley MD Unavailable [phone] Encounters Date Type Department Care Team Description 08/09/2024 Telephone [facility] Gastroenterology [address] [place] [address] Medical Office Building [address], [address] [place] [phone] Dulce Oshea, CORTNEY 08/08/2024 Results Follow-Up [facility] Gastroenterology [address] [place] [address] Office Building [address], [address] [place] [address] Dulce Oshea, CORTNEY 08/05/2024 10:22 AM SLITTER SCORER Anesthesia Event [facility] [address] [place] [phone] Khoi Pan DO 08/05/2024 10:00 AM SLITTER SCORER - 08/05/2024 10:30 AM SLITTER SCORER Surgery [facility] [address] [place] [phone] Andrei Anderson MD EGInga 08/05/2024 9:07 AM SLITTER SCORER - 08/05/2024 11:27 AM SLITTER SCORER Hospital Encounter [facility] [address] [place] [phone] Andrei Anderson MD FAP (familial adenomatous polyposis) Discharge Disposition: Discharge to home or self care 07/14/2024 Telephone [facility] [address] [address] [place] [address] Dulce Oshea RN GI Preprocedure from Last 3 Months Allergies Active Allergy Reactions Criticality Noted Date Comments Adhesive Other (See comments),Rash Medium 12/16/2018 Reaction: Other Amoxicillin Rash Reaction: Rash, Amoxicillin-Pot Clavulanate Diarrhea Low 05/22/2015 Hydrocodone Anaphylaxis Reaction: Anaphylaxis, Hydromorphone Other (See comments) Low Reaction: Bradycardia, Iodinated Contrast Media Rash,Unknown Medium 09/30/2018 Iodine And Iodide Containing Products Rash Reaction: Rash, Morphine Rash,Vomiting Medium 09/30/2018 Potassium Rash Reaction: Rash, Tramadol Other (See comments) Low 05/09/2014 made me feel not okay Yellow Dye Rash Medium 05/09/2014 Medications gabapentin (NEURONTIN) 300 mg capsule take 1 capsule by ORAL route 2 times every day 0 0 5 Active Additional Information Patient taking differently:300 mg3 times daily, Reported on 12/01/2022 cyclobenzaprin e (FLEXERIL) 10 mg tablet take 1 tablet by oral route 3 times every day 0 0 5 Active Additional Information Patient taking differently:10 mg2 times daily, Reported on 12/01/[address] (PROTONIX) 40 mg EC tablet take 1 tablet by oral route every day 0 0 5 Active ALPRAZolam (XANAX) 0.5 mg tablet take 1 tablet by oral route 3 times every day 0 0 5 Active docusate sodium (COLACE) 100 mg capsule take 1 capsule by oral route every day at bedtime as needed 0 0 5 Active ergocalciferol (VITAMIN D) 50,000 unit capsule Take by mouth 8 Active menthol-zinc oxide (MOISTURE BARRIER OINTMENT) 0.44-20.6 % ointment Apply topically 5 Active oxyCODONE-acet aminophen (PERCOCET) 10-325 mg per tablet 9 Active psyllium husk 2.6 gram/4.1 gram powder daily 5 Active rivaroxaban (XARELTO) 20 mg tablet Take 1 tablet (20 mg total) by mouth daily 1 Active amLODIPine (NORVASC) 5 mg tablet Take 1 tablet (5 mg total) by mouth daily [address] (CYMBALTA) 60 mg capsule Take 60 mg by mouth daily 1 Active fluticasone propionate (FLONASE) 50 mcg/actuation nasal spray Administer 1 spray into each nostril 2 (two) times a day 0 Active ipratropium (ATROVENT) 42 mcg (0.06 %) nasal spray Administer 1 spray into each nostril daily 0 Active multivit-min/f errous fumarate (MULTI VITAMIN ORAL)Indicatio ns:2 gummys Take by mouth Acti ve ascorbic acid (VITAMIN C ORAL)Indicatio ns:gummy Take by mouth Active simethicone (GAS-X ORAL) Take by mouth as needed Active glimepiride (AMARYL) 2 mg tabletIndicati ons:type 2 diabetes mellitus Take 1 tablet (2 mg total) by mouth daily Active rosuvastatin (CRESTOR) 10 mg tablet Take 1 tablet (10 mg total) by mouth daily Active ondansetron (ZOFRAN) 4 mg tablet Take 1 tablet (4 mg total) by mouth every 8 (eight) hours as needed for nausea or vomiting Active acyclovir (ZOVIRAZ) 5 % cream Apply topically as needed Active chlorphenirami ne/dextrometho rp (CORICIDIN HBP COUGH AND COLD ORAL) Take by mouth as needed Active losartan (COZAAR) 25 mg tablet 1 Active metoprolol XL (TOPROL-XL) 25 mg extended release tablet Take 1 tablet (25 mg total) by mouth daily 2 Active Ozempic 1 mg/dose (4 mg/3 mL) pen injector injection Inject 1 mg under the skin once a week 3 Active OneTouch Verio test strips strip 2 (two) times a day 2 Active calcium carbonate-jonathan min D3 (Caltrate 600 plus D) 1,500 mg (600 mg elemental)-800 unit tablet,chewabl e Take by mouth Active FreeStyle Alphonse 2 Hewitt misc USE WITH FREESTYLE SENSOR 3 Active folic acid (FOLVITE) 1 mg tablet Take 1 tablet (1,000 mcg total) by mouth daily 2 Active insulin detemir (LEVEMIR) 100 unit/mL (3 mL) pen for injection Levemir FlexTouch U-100 Insulin 100 unit/mL (3 mL) subcutaneous pen INJECT 10 UNITS DAILY Active lancets (onetouch ultrasoft) misc 2 (two) times a day 2 Active meclizine (ANTIVERT) 25 mg tablet 3 Active METHIONINE, BULK, MISC Take 1 packet by mouth as needed Active topiramate (TOPAMAX) 50 mg tablet topiramate 50 mg tablet Active SITagliptin phosphate (Januvia) 100 mg tablet daily Active pyRIDostigmine (MESTINON) 60 mg tablet pyridostigmine bromide 60 mg tablet Active lidocaine (XYLOCAINE) 5 % ointment Apply topically as needed for pain 35.44 g 1 5 Active Active Problems Problem Noted Date Diagnosed Date Gas pain 05/16/2021 Family history of FAP (familial adenomatous poly posis) 05/09/2021 Overview (05/09/2021): Added automatically from request for surgery [id number] Bloating 11/02/2020 Loose stools 11/02/2020 FAP (familial adenomatous polyposis) 11/30/2018 Overview (11/30/2018): Added automatically from request for surgery [id number] Tobacco use 02/07/2015 Overview (09/12/2016): Tobacco use History of deep venous thrombosis 02/07/2015 Overview (09/12/2016): H/O deep venous thrombosis History of pulmonary embolism 02/07/2015 Overview (09/12/2016): 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 Monthly or less 08/05/2024 Q2: How many drinks containi ng alcohol do you have on a typical day when you are drinking? 3 or 4 08/05/2024 Q3: How often do you have si x or more drinks on one occasion? Never 08/05/2024 Personal Safety Answer Date Recorded Have you ever been in or are you currently in a harmful physical or emotional relationship or is someone making you feel afraid or unsafe? Denies 08/05/2024 Comments No Sex and Gender Information Value Date Recorded Sex Assigned at Not on file Legal Sex Female 2:33 AM SLITTER SCORER Gender Identity Not on file Sexual Orientation Straight 03/03/2024 7: 28 AM CDT Last Filed Vital Signs Vital Sign Reading Time Taken Comments Blood Pressure 107/84 08/05/2024 11:04 AM SLITTER SCORER Pulse 68 08/05/2024 11:04 AM SLITTER SCORER Temperature 36.3 C (97.4 F) 08/05/2024 9:50 AM SLITTER SCORER Respiratory Rate 22 08/05/2024 11:04 AM SLITTER SCORER Oxygen Saturation 99% 08/05/2024 11:04 AM SLITTER SCORER Inhaled Oxygen Concentration - - Weight 79.4 kg (175 lb) 08/05/2024 9:50 AM SLITTER SCORER Height 157.5 cm (5' 2 ) 08/05/2024 9:50 AM SLITTER SCORER Body Mass Index 32.01 08/05/2024 9:50 AM SLITTER SCORER Plan of Treatment Not on file Medical Devices Implanted Type Area Information Assurance Officer Device Identifier Shelf Expiration Date Model / Serial / Lot Implantable Loop Recorder Implantable Loop Recorder Left: Chest Procedures Procedure Name Priority Date/Time Associated Diagnosis Comments SURGICAL PATHOLOGY Routine 08/05/2024 10:41 AM SLITTER SCORER FAP (familial adenomatous polyposis) SIGMOID REMOVAL SNARE 08/05/2024 10:22 AM SLITTER SCORER FAP (familial adenomatous polyposis) ESOPHAGOGASTRODUODENOSCOPY 08/05 10:22 AM SLITTER SCORER FAP (familial adenomatous polyposis) FLEXIBLE SIGMOIDOSCOPY 10:15 AM SLITTER SCORER EGD 08/05/2024 10:14 AM SLITTER SCORER POCT GLUCOSE DEVICE Routine 08/05/2024 9:57 AM SLITTER SCORER DIAGNOSTIC MAMMOGRAM BILATER AL W ROSS Schedule Routine, Read Routine (OP Routine) 10/08/2023 1:11 PM CDT Mass of left breast, unspecified quadrant COLONOSCOPY REPORT 03/23/2014 from Last 3 Months or Most Recently Relevant to Health Maintenance Results * Surgical pathology (08/05/2024 10:41 AM SLITTER SCORER) Tissue specimen (specimen) (Polyp(s), colon/colorectal, esophageal, gastric) 08/05/2024 10:41 AM SLITTER SCORER Narrative PATHOLOGY [facility] - 08/08/2024 9:45 AM SLITTER SCORER [address] [address] Tele: Yue Fay MD - Slurry Control Operator Helper Note to Patients: This report may contain a detailed description of human tissue sent by a health care provider to the laboratory for pathologic evaluation. The content of this report is essential for diagnosis and may provide important critical findings. This information may be unfamiliar to patients to review without a medical professional present. It is advised that the patient review this report in the presence of a health care provider who can answer questions and explain the details. SURGICAL PATHOLOGY REPORT Patient Name: TARIK RAYGOZA Address: [address] [place] [address] Gender: F : 1975 (Age: 49) Service: Gastro Location: [facility] Hospital #: [id number] Patient Type: [facility] Taken: 08/05/2024 Received 08/05/2024 Reported: 08/08/2024 Physician(s): Kourtney Mckeon M.D. Matthew G. Mutch, M.D. DIAGNOSIS: Colon, rectal polyp, biopsy: - Hyperplastic polyp rera/08/08/2024 09:45 Examining Pathologist: Caterina Carvalho M.D. Report Reviewed and Electronically Signed By Caterina Carvalho M.D. SPECIMEN TYPE: A: RECTAL POLYP CLINICAL IMPRESSION AND HISTORY: High-risk colon cancer surveillance. On colonoscopy, there is a sessile polyp in the rectosigmoid colon GROSS DESCRIPTION: Received in formalin in a single container with the patient's name, TARIK RAYGOZA labeled rectal polyp and contains a 1.6 x 0.3 x 0.1 cm tissue fragment. Due to the color and size of the specimen, eosin is used. The specimen is filtered and submitted entirely in cassette A1. [facility]/08/05/2024 15:23 SHERIE TAN MICROSCOPIC DESCRIPTION: Microscopic examination supports the above captioned diagnosis. Clerical Data Follows A; [id number] REPORT IMAGES AND/OR SCANNED DOCUMENTS ONLY VIEWABLE IN PDF FORMAT The immunohistochemical test(s) cited in this report, if any, was developed and its performance characteristics determined by [facility] Pathology Department. It has not been cleared or approved by the U.S. Food and Drug Administration. The FDA has determined that such clearance or approval is not necessary. This test is used for clinical purposes. It should not be regarded as investigational or for research. [facility] Laboratory is certified under the Clinical Laboratory Improvement Amendments of 1988 (CLIA) as qualified to perform high complexity testing. Immunostains were performed on formalin-fixed paraffin embedded tissue using a polymer diaminobenzidine chromogen detection system. Antibodies used may include clone SP1 (rabbit monoclonal, estrogen receptor), clone 1E2 (rabbit monoclonal progesterone receptor), Ki-67 (rabbit monoclonal, 30-9), CD117 (rabbit polyclonal, c-kit), and anti-Her-2/fabiola (4B5) (rabbit monoclonal primary antibody). In the event that immunohistochemistry or special stains have been performed, attending physician has confirmed appropriateness of controls. Frozen section, operating room consultation, gross examination and dissection, and case sign out may have been performed in part or completely in the following laboratories: [facility], [address] [facility], [place], [place] [address] [place] [address], [address] [place] [id number]. us Andrei Anderson MD LAB PATHOLOGY ORDERABLES F inal Result PATHOLOGY [facility] Laboratory Receiving [address] [place] [address] * Flexible Sigmoidoscopy (08/05/2024 10:15 AM SLITTER SCORER) Anatomical Region Laterality Modality Other Narrative Procedure Note Andrei Anderson MD - 08/05/2024 10:15 AM CST ENDOSCOPY LAB Patient Name: Tarik Raygoza Procedure Date: 08/05/2024 10:15 AM Admit Type: Outpatient Room: [facility] Date of : 1975 Instrument Name: [id number] Gender: Female Note Status: Finalized Procedure: Flexible Sigmoidoscopy Indications: High risk colon cancer surveillance: Personalhistory of familial adenomatous polyposis Providers: Andrei Anderson M.D. Referring MD: Yogi Draper M.D., Phil Glass M.D. Medicines: Monitored Anesthesia Care Complications: No immediate complications. Estimated Blood Loss: Estimated blood loss: none. Procedure: Pre-Anesthesia Assessment: - The risks and benefits of the procedure and the sedation options and risks were discussed with the patient. All questions were answered and informed consent was obtained. - Immediately prior to administration ofmedications, the patient was re-assessed for adequacy to receive sedatives. The benefits, risks, and alternatives to theprocedure and sedation were discussed and informed consentwas obtained. The Endoscope was introduced through the anus and advanced to the ileo-sigmoid anastomosis.The flexible sigmoidoscopy was accomplished without difficulty. The patient tolerated the procedurewell. Findings: The perianal and digital rectal examinations were normal. There was evidence of a prior end-to-end ileo-rectal anastomosis inthe recto-sigmoid colon. This was patent and was characterized by healthy appearing mucosa. The anastomosis was traversed. The ileum appeared normal. A 5 mm polyp was found in the recto-sigmoid colon. The polyp was sessile. The polyp was removed with a cold snare. Resection and retrieval were complete. Impression: - Patent end-to-end ileo-rectal anastomosis, characterized by healthy appearing mucosa. - The terminal ileum is normal. - One 5 mm polyp at the recto-sigmoid colon,removed with a cold snare. Resected and retrieved. Recommendation: - Return to referring physician as previously scheduled. - Await pathology results. - Repeat flexible sigmoidoscopy in 2 years for surveillance. Attending Participation: I personally performed the entire procedure. Electronically signed by Andrei Anderson M.D. Andrei Anderson M.D. 08/05/2024 10:54:28 AM This document was signed electronically. Number of Addenda: 0 Note Initiated On: 08/05/2024 10:15 AM Scope In: 10:37:32 AM Scope Out: 10:41:38 AM us Andrei Anderson MD ENDOSCOPY PROCEDURES Final Result * EGD (08/05/2024 10:14 AM SLITTER SCORER) Anatomical Region Laterality Modality Other Narrative Procedure Note Andrei Anderson MD - 08/05/2024 10:14 AM CST ENDOSCOPY LAB Patient Name: Tarik Raygoza Procedure Date: 08/05/2024 10:14 AM Admit Type: Outpatient [facility]: [facility] Date of : 1975 Instrument Name: [id number] Gender: Female Note Status: Finalized Procedure: Upper GI endoscopy Indications: Surveillance for malignancy due to personal historyof Familial Adenomatous Polyposis Providers: Andrei Anderson M.D. Referring MD: Yogi Draper M.D., Phil Glass M.D. Medicines: Monitored Anesthesia Care Complications: No immediate complications. Estimated Blood Loss: Estimated blood loss: none. Procedure: Pre-Anesthesia Assessment: - The risks and benefits of the procedure and the sedation options and risks were discussed with the patient. All questions were answered and informed consent was obtained. - Immediately prior to administration ofmedications, the patient was re-assessed for adequacy to receive sedatives. The benefits, risks, and alternatives to theprocedure and sedation were discussed and informed consentwas obtained. The scope was passed under direct vision. The [id number] was introduced through the mouth, and advanced to the second part of duodenum. The scopewas passed under direct vision. The Endoscope was introduced through the and advanced to the. Theupper GI endoscopy was accomplished without difficulty.The patient tolerated the procedure well. Findings: The examined esophagus was normal. A single 4 mm sessile polyp with no stigmata of recent bleeding was found in the gastric body. The ampulla, duodenal bulb and second portion of the duodenum were normal. Impression: - Normal esophagus. - A single gastric polyp. - Normal ampulla, duodenal bulb and second portionof the duodenum. Recommendation: - Observe patient's clinical course. - [facility] Attending Participation: I personally performed the entire procedure. Electronically signed by Andrei Anderson M.D. Andrei Anderson M.D. 08/05/2024 10:50:11 AM This document was signed electronically. Number of Addenda: 0 Note Initiated On: 08/05/2024 10:14 AM Scope In: Scope Out: us Andrei Anderson MD ENDOSCOPY PROCEDURES Final Result * POCT glucose (08/05/2024 9:57 AM SLITTER SCORER) Glucose, POC 168 70 - 199 mg/dL Comment: For Glucose values <35 mg/dl when Hematocrit is >60 mg/dl,the test may not accurately detect significant hypoglycemia,and testing in the Laboratory should be considered if clinically indicated. Blood 08/05/2024 9:57 AM SLITTER SCORER 08/05/2024 9:57 AM SLITTER SCORER us Andrei Anderson MD LAB POCT ORDERABLES - MERRICK CE Final Result [facility] [address] [place] [address] * Diagnostic Mammogram Bilateral W Ross (10/08/2023 1:11 PM CDT) Anatomical Region Laterality Modality Breast Bilateral Mammography 10/08/2023 1:53 PM CDT Impressions 10/08/2023 1:54 PM CDT No suspicious mass or abnormality in EITHER breast, no correlate is seen for palpable areas of concern. OVERALL FINAL ASSESSMENT: BI-RADS Category 1: Negative. RECOMMENDATION: Annual screening mammography is recommended. Dictated by: Khoi Harris MD The radiology attending physician has personally reviewed this study, and had reviewed and/or edited this written report and agrees with it. Electronically signed by: Nimisha Camp M.D. Narrative 10/08/2023 1:54 PM CDT EXAMINATION: BILATERAL DIGITAL DIAGNOSTIC MAMMOGRAM INCLUDING CAD AND BILATERAL DIGITAL BREAST TOMOSYNTHESIS; BILATERAL BREAST SONOGRAM HISTORY: 48-year-old woman with one year tender left breast palpable after loop recorder placement, right breast palpable for several years COMPARISON: Mammogram 08/08/2022, 04/25/2021, 02/28/2020 TECHNIQUE: Full field digital mammographic views of BOTH breasts were performed, including computer aided detection (CAD) and BILATERAL digital breast tomosynthesis (DBT). Directed ultrasound evaluation of BOTH breasts was performed. BREAST PARENCHYMAL COMPOSITION: There are scattered areas of fibroglandular density. MAMMOGRAM FINDINGS: There is no new mass or suspicious abnormality is EITHER breast. No correlate for the patient's reported palpable areas of concern. SONOGRAM FINDINGS: Targeted ultrasound was performed in the palpable areas bilaterally. There is no focal abnormal solid or cystic lesion suggestive of malignancy in the areas of recent concern. Procedure Note Nimisha Camp MD - 10/08/2023 EXAMINATION: BILATERAL DIGITAL DIAGNOSTIC MAMMOGRAM INCLUDING CAD AND BILATERAL DIGITAL BREAST TOMOSYNTHESIS; BILATERAL BREAST SONOGRAM HISTORY: 48-year-old woman with one year tender left breast palpable after loop recorder placement, right breast palpable for several years COMPARISON: Mammogram 08/08/2022, 04/25/2021, 02/28/2020 TECHNIQUE: Full field digital mammographic views of BOTH breasts were performed, including computer aided detection (CAD) and BILATERAL digital breast tomosynthesis (DBT). Directed ultrasound evaluation of BOTH breasts was performed. BREAST PARENCHYMAL COMPOSITION: There are scattered areas of fibroglandular density. MAMMOGRAM FINDINGS: There is no new mass or suspicious abnormality is EITHER breast. No correlate for the patient's reported palpable areas of concern. SONOGRAM FINDINGS: Targeted ultrasound was performed in the palpable areas bilaterally. There is no focal abnormal solid or cystic lesion suggestive of malignancy in the areas of recent concern. IMPRESSION: No suspicious mass or abnormality in EITHER breast, no correlate is seen for palpable areas of concern. OVERALL FINAL ASSESSMENT: BI-RADS Category 1: Negative. RECOMMENDATION: Annual screening mammography is recommended. Dictated by: Khoi aHrris MD The radiology attending physician has personally reviewed this study, and had reviewed and/or edited this written report and agrees with it. Electronically signed by: Nimisha Camp M.D. Davonte Díaz MD IMG MAMMO PROCEDURES Final Result * COLONOSCOPY REPORT (03/23/2014) Anatomical Region Laterality Modality Other Narrative 03/23/2014 Ordered by an unspecified provider. Historical Provider GI PROCEDURE ORDERABLES F inal Result from Last 3 Months or Most Recently Relevant to Health Maintenance Insurance RAVEN RODRIGUEZ IDPA [facility] IDPA CIGNA IB [facility] CIGNA IBEW IDPA Advance Directives For more information, please contact: [phone] * Full Code (Latest Code Status on File) Date Activated Date Inactivated Comments 08/05/2024 9:41 AM 08/05/2024 3:27 PM * Full Code Date Activated Date Inactivated Comments 07/31/2023 8:06 AM 07/31/2023 1:51 PM * Full Code Date Activated Date Inactivated Comments 07/29/2022 12:44 PM 07/29/2022 6:17 PM * Full Code Date Activated Date Inactivated Comments 06/17/2021 8:28 AM 06/17/2021 4:02 PM * Full Code Date Activated Date Inactivated Comments 07/16/2020 8:33 AM 07/16/2020 2:44 PM Care Teams Civil Attorney Relationship Specialty Start Date End Date Phil Glass MD [address] [place] [address] PCP - General Family Medicine 11/30/18 Rhonda Anguiano, CORTNEY Registered Nurse 09/02/18 Blaze Haley MD [address] [place] [id number] Referring Physician Medical Oncology 06/23/23
--- OUTSIDE RECORDS SUMMARY | 2024-09-09 15:51 | XMS_ITS | Encounter Summary ---
Author Organization [facility] Address [address] [place] [address] Phone Care Team Providers Care Retail Specialist Name Role Phone Quan Phil Primary Care Provider [phone] Blaze Haley MD Primary Care Provider [phone] Encounter Details Date Type Department Care Team (Late st Contact Info) Description 09/05/2020 Telephone [facility] [address] [place] [address] Blaze Haley MD [address] [place] [address] Social History Tobacco Use Types [...] or suspected to have Coronavirus / COVID-19? No / Unsure 09/05/2020 3:11 PM CDT documented as of this encounter Miscellaneous Notes * Telephone Encounter - Siena Palacios - 09/05/2020 9:27 AM CDT PATIENT CALLED AND SHE WANTED TO CHANGE TO A TELEPHONE VISIT. PT STATED SHE HAS HAD SEVERAL LABS DRAWN BY HER PRIMARY AND THEY HAVE NOT BEEN GOOD IN TERMS OF HER IRON. SHE SAID SHE WAS TOLD BY HER PCP HE DID NOT WANT ANY MORE LABS DRAWN FOR RIGHT NOW. SO PT CANCELED THE LABS AND THEN WANTED TO JUSTDO A TELEPHONE VISIT FOR TODAY. documented in this encounter Plan of Treatment Upcoming Encounters Date Type Department Care Team (Late st Contact Info) Description 12/19/2024 10:30 AM CDT Lab [facility] [address] [phone] Blaze Haley MD [address] [place] [phone] Lab, [facility] 12/19/2024 10:45 AM CDT Office Visit [facility] [address] [phone] Blaze Haley MD [address] [place] [phone] documented as of this encounter Visit Diagnoses Not on filedocumented in this encounter Additional Health Concerns Assessment Noted Time PHQ-9 Depression Total Score: 0 01/25/20 19 10:38 AM CDT documented as of this encounter Care Teams Retail Specialist Relationship Specialty Start Date End Date Phil Glass [address] [place] [address] PCP - General Family Medicine 09/08/18 11/13/20 Blaze Haley MD [address] [place] [address] [place] [phone] PCP - General Oncology 11/14/20 documented as of this encounter
--- OUTSIDE RECORDS SUMMARY | 2024-09-09 15:51 | XMS_ITS | Clinical Summary ---
Author Organization [facility] Address [address] [facility] [place] [address] Care Team Providers Care Cut Out Stitcher Name Role Phone Rhonda Anguiano RN Unavailable Unavailable Phil Glass MD Primary Care Provider [phone] Blaze Haley MD Unavailable [phone] Allergies Active Allergy Reactions Criticality Noted Date [...] Take by mouth Active FreeStyle Alphonse 2 [place] misc USE WITH FREESTYLE SENSOR 3 Active [...] (05/09/2021): Added automatically from request for surgery [id number] Bloating 11/02/2020 Loose stools 11/02/2020 FAP (familial adenomatous polyposis) 11/30/2018 Overview (11/30/2018): Added automatically from request for surgery [id number] Tobacco use 02/07/2015 Overview (09/12/2016): Tobacco use History of deep venous thrombosis 02/07/2015 Overview (09/12/2016): H/O deep venous thrombosis History of pulmonary embolism 02/07/2015 Overview (09/12/2016): 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 Anxiety 02/07/2015 Overview (09/12/2016): Anxiety Family history of coronary artery disease 2014 Overview (09/12/2016): Family history of coronary artery disease occurring prior to 55 years of age Encounters Date Type Department Care Team Description 08/09/2024 Telephone [facility] [address] [place] [address] Medical Office Building [address] [place] [address] Dulce Oshea RN 08/08/2024 Results Follow-Up [facility] [address] [place] [address] [address] [place] [address] Dulce Oshea, CORTNEY 08/05/2024 10:22 AM BARROW WORKER Anesthesia Event [facility] [address] [place] [phone] Khoi Pan DO 08/05/2024 10:00 AM BARROW WORKER - 08/05/2024 10:30 AM BARROW WORKER Surgery [facility] [address] [place] [phone] Andrei Anderson MD EGD 08/05/2024 9:07 AM BARROW WORKER - 08/05/2024 11:27 AM BARROW WORKER Hospital Encounter [facility] [address] [place] [address] [phone] Andrei Anderson MD FAP (familial adenomatous polyposis) Discharge Disposition: Discharge to home or self care 07/14/2024 Telephone [facility] [address] [facility] Medical Office [address] [place] [address] Dulce Oshea RN GI Preprocedure from Last 3 Months Surgical History Surgery Date Site/Laterality Comments OTHER SURGICAL HISTORY Hysterectomy, total, removal of both tubes and ovaries COLON SURGERY 06/07/2014 Laparoscopic-assisted total abdominal colectomy with ileorectal anastomosis COLONOSCOPY UPPER GASTROINTESTINAL ENDOSCOPY SECTION TONSILLECTOMY HYSTERECTOMY BREAST CYST EXCISION Left WRIST SURGERY Right CARDIAC CATHETERIZATION Medical History Medical History Date Comments Hx Other Medical 05/2014 Total colectomy for familial serrated polyposis sy; Comments: ELU 04/08/2015 - Hx Other Medical Progressive sma ll fiber neuropathy; Comments: ELU 04/08/2015 - Anxiety disorder Anxiety Delayed emergence from gener al anesthesia FAP (familial adenomatous polyposis) DVT (deep venous thrombosis) (HCC) Pulmonary embolism (HCC) Anxiety Colon polyp Type 2 diabetes mellitus (HCC) GERD (gastroesophageal reflux disease) Dysphagia Incontinence Hypertension Arthritis Hyperlipidemia Ventricular tachycardia (HCC) Family History Medical History Relation Name Comments Cancer Father Family history of malignant neoplasm - (Added by TW Conv) Other Father Heart dz; many heart attacks since in his 40's; Cause of : Heart dz; many heart attacks since in his 40's Other Mother Valve disease; Other Sister 1 Leukemia, PEs, DM; Cancer Sister 2 Family history of malignant neoplasm - (Added by TW Conv) Colonic polyp Son Family history of colonic polyps - (Added by TW Conv) Relation Name Status Comments Father Mother Sister 1 Sister 2 Son Social History Tobacco Use Types Packs/Day Years [...] on file Legal Sex Female 2:33 AM BARROW WORKER Gender Identity Not on file Sexual Orientation Straight 03/03/2024 7: 28 AM CDT Obstetrics History Last Filed Vital Signs Vital Sign Reading Time Taken Comments Blood Pressure 107/84 08/05/2024 11:04 AM BARROW WORKER Pulse 68 08/05/2024 11:04 AM BARROW WORKER Temperature 36.3 C (97.4 F) 08/05/2024 9:50 AM BARROW WORKER Respiratory Rate 22 08/05/2024 11:04 AM BARROW WORKER Oxygen Saturation 99% 08/05/2024 11:04 AM BARROW WORKER Inhaled Oxygen Concentration - - Weight 79.4 kg (175 lb) 08/05/2024 9:50 AM BARROW WORKER Height 157.5 cm (5' 2 ) 08/05/2024 9:50 AM BARROW WORKER Body Mass Index 32.01 08/05/2024 9:50 AM BARROW WORKER Plan of Treatment Health Maintenance Due Date Last Done Comments Depression Screening 1975 Hepatitis C Screening 1975 DTaP/Tdap/Td Vaccine (1 - Tdap) 1985 Hepatitis B Screening 1992 Regular Well Visit/Exam 18-64 1992 Pneumococcal vaccine <65 (1 of 2 - PCV) 1993 Influenza Vaccine (#1) 2024 , 05/07/2019, 07/03/2017, Additional history exists Colon Cancer Screening-Colonoscopy 03/23/20242013, 11/17/2013 Zoster Vaccine (1 of 2) 2024 Breast Cancer Screening-Mammogram 10/07/2024 10/08/2023, 08/08/2022, 04/25/2021, Additional history exists Medical Devices Implanted Type Area Router Tender Device Identifier Shelf Expiration Date Model / Serial / Lot Implantable Loop Recorder Implantable Loop Recorder Left: Chest Procedures Procedure Name Priority Date/Time Associated Diagnosis Comments SURGICAL PATHOLOGY Routine 08/05/2024 10:41 AM BARROW WORKER FAP (familial adenomatous polyposis) SIGMOID REMOVAL SNARE 08/05/2024 10:22 AM BARROW WORKER FAP (familial adenomatous polyposis) ESOPHAGOGASTRODUODENOSCOPY 08/05 10:22 AM BARROW WORKER FAP (familial adenomatous polyposis) FLEXIBLE SIGMOIDOSCOPY 10:15 AM BARROW WORKER EGD 08/05/2024 10:14 AM BARROW WORKER POCT GLUCOSE DEVICE Routine 08/05/2024 9:57 AM BARROW WORKER DIAGNOSTIC MAMMOGRAM BILATER AL W ROSS Schedule Routine, Read Routine (OP Routine) 10/08/2023 1:11 PM CDT Mass of left breast, unspecified quadrant COLONOSCOPY REPORT 03/23/2014 from Last 3 Months or Most Recently Relevant to Health Maintenance Results * Surgical pathology (08/05/2024 10:41 AM BARROW WORKER) Tissue specimen (specimen) (Polyp(s), colon/colorectal, esophageal, gastric) 08/05/2024 10:41 AM BARROW WORKER Narrative PATHOLOGY [facility] - 08/08/2024 9:45 AM BARROW WORKER [address] [address] Tele: Yue Fay MD - Orchestra Musician Note to Patients: This report may contain [...] PATHOLOGY REPORT Patient Name: TARIK RAYGOZA Address: [address] [place] [address] Gender: F : 1975 (Age: 49) Service: Gastro Location: [facility], [facility] #: [id number] Patient Type: MBC SAME DAY SURGERY Taken: 08/05/2024 Received 08/05/2024 [...] filtered and submitted entirely in cassette A1. [facility]/08/05/2024 15:23 [facility] MICROSCOPIC DESCRIPTION: Microscopic examination supports the above captioned diagnosis. Clerical Data Follows A; [id number] REPORT IMAGES AND/OR SCANNED DOCUMENTS ONLY VIEWABLE IN PDF FORMAT The immunohistochemical test(s) cited in this report, if any, was developed and its performance characteristics determined by [facility] Pathology Department. It has not been cleared or approved by the U.S. Food and Drug Administration. The FDA has determined that such clearance or approval is not necessary. This test is used for clinical purposes. It should not be regarded as investigational or for research. [facility] Laboratory is certified under the Clinical Laboratory [...] part or completely in the following laboratories: [facility], [address] [facility], [place], [place] [address] [place] [address], [address] [facility], [place] [address]. Andrei Anderson MD LAB PATHOLOGY ORDERABLES F inal Result PATHOLOGY [facility] Laboratory Receiving [address] [place], [place] [id number] * Flexible Sigmoidoscopy (08/05/2024 10:15 AM BARROW WORKER) Anatomical Region Laterality Modality Other Narrative Procedure Note Andrei Anderson MD - 08/05/2024 10:15 AM CST ENDOSCOPY LAB Patient Name: Tarik Raygoza Procedure Date: 08/05/2024 10:15 AM Admit Type: Outpatient Room: [facility] Date of : 1975 Instrument Name: GIF-H605 [...] Final Result * EGD (08/05/2024 10:14 AM BARROW WORKER) Anatomical Region Laterality Modality Other Narrative Procedure Note Andrei Anderson MD - 08/05/2024 10:14 AM CST ENDOSCOPY LAB Patient Name: Tarik Raygoza Procedure Date: 08/05/2024 10:14 AM Admit Type: Outpatient Room: [facility] Date of : 1975 Instrument Name: [id number],[id number] [...] - Repeat upper endoscopy in 2 years [facility]. Attending Participation: I personally performed the entire procedure. Electronically signed by Andrei Anderson M.D. Andrei Anderson M.D. 08/05/2024 10:50:11 AM This document was signed electronically. Number of Addenda: 0 Note Initiated On: 08/05/2024 10:14 AM Scope In: Scope Out: Andrei Anderson MD ENDOSCOPY PROCEDURES Final Result * POCT glucose (08/05/2024 9:57 AM BARROW WORKER) Glucose, POC 168 70 - 199 mg/dL Comment: For Glucose values <35 mg/dl when Hematocrit is >60 mg/dl,the test may not accurately detect significant hypoglycemia,and testing in the Laboratory should be considered if clinically indicated. Blood 08/05/2024 9:57 AM BARROW WORKER 08/05/2024 9:57 AM BARROW WORKER Andrei Anderson MD LAB POCT ORDERABLES - MERRICK CE Final Result [facility] [address] Department [place] [address] * Diagnostic Mammogram Bilateral W Ross (10/08/2023 [...] Recently Relevant to Health Maintenance Insurance [employer] IDPA [facility] IDPA [facility] C[employer]SE IBEW HIPA Advance Directives For more information, please contact: [phone] * Full Code (Latest Code Status on [...] 8:33 AM 07/16/2020 2:44 PM Care Teams Cut Out Stitcher Relationship Specialty Start Date End Date Phil Glass MD [address] [facility] [place] [address] PCP - General Family Medicine 11/30/18 Rhonda Anguiano, CORTNEY Registered Nurse 09/02/18 Blaze Haley MD [address] [place] [address] Referring Physician Medical Oncology 06/23/23
== END 2024-09-09 15:48 | disposition home or self-care (01) ==
PROVIDERS: PCP Emergency Medicine; Visit Provider Emergency Medicine
DX: M79.662 Pain in left lower leg (principal)
CPT/HCPCS: 76882

== ENCOUNTER 2024-12-02 07:02 | Outpatient (CLI) | payer OTHER, MEDICAID, SELFPAY ==
--- NOTE | ~2024-12-02 | CT_ITS ---
Non-contrast CT scan of the Abdomen and Pelvis Clinical indication: Abdominal pain Technique: 2.5 mm axial scans were obtained through the abdomen and pelvis without intravenous or or al contrast. Dose reduction technique was used on this scan by utilizing automated exposure control a nd iterative reconstruction technique. The dose-length product (DLP) was 588.53 mGy-cm. COMPARISON: 04/18/2022 Findings: Images through the lung bases reveal no abnormalities. There is no evidence of renal or ureteral calculi. The kidneys and the ureters are nondilated. There is diffuse hepatic steatosis. The spleen, pancreas, gallbladder, and adrenals appear normal. T here is no aortic aneurysm. There is no evidence of bowel obstruction. Probable extensive colectomy. Images through the pelvis were performed. There is no evidence of ascites or lymphadenopathy. Urinary bladder unremarkable. No pelvic mass seen. Impression: No acute abnormality evident. Diffuse hepatic steatosis. Reviewed, dictated and finalized at [facility]. Impression: No acute abnormality evident. Diffuse hepatic steatosis.
== END 2024-12-02 07:03 | disposition home or self-care (01) ==
PROVIDERS: PCP Emergency Medicine; Visit Provider Emergency Medicine
DX: R10.30 Lower abdominal pain, unspecified (principal); K76.0 Fatty (change of) liver, not elsewhere classified
CPT/HCPCS: 74176